=== PATIENT | female | born 1955 | race Caucasian/White ===

== ENCOUNTER 2016-12-20 09:34 | Inpatient (IN) ==
[2016-12-20] MEDS ORDERED: ONDANSETRON 4 MG/2 ML INJECTION IVP PRN (10:00)
--- OUTSIDE RECORDS SUMMARY | 2016-12-20 10:19 | External Medical Summary | Continuity of Care Document ---
:1955 Author Organization [facility] Care Team Providers Name Role Phone B[employer] Unavailable Unavailable Encounters Location Location Encounter Encounter Reason Attending ADM DC Status Source Details Type Number For Provider Date Date Visit O Active [facility] Family History Value Date Source Advance Directives Order Name Results Value Date Source
--- OUTSIDE RECORDS SUMMARY | 2016-12-20 10:20 | External Medical Summary ---
:1955 Author Organization [employer]Works Care Team Providers Name Role Phone Leena Chan Provider Role Unavailable Allergies, Adverse Reactions, Alerts Substance Reaction Event Type Percocet nausea and vomiting Drug Allergy Lortab nausea and vomiting Drug Allergy Bactrim stomach upset Drug Allergy Problems Problem Type Condition ICD-9 Code Onset Dates Condition Status Assessment Pain in joint, lower leg 719.46 Active Problem Polyneuropathy in diabetes 357.2 Active Problem Anemia in chronic kidney disease 285.21 Active Problem Renal dialysis status V45.11 Active Problem Chronic kidney disease, 585.9 Active unspecified Problem Essential hypertension, benign 401.1 Active Problem Blindness of both eyes, 369.00 Active impairment level not further specified Problem Diabetes Mellitus Type 2, not 250.00 Active stated as uncontrolled Medications Medication Code Code Instructions Start End Status Dosage System Date Date Reglan [facility] 98535-00 10 MG Orally Active 1 tablet 30 tid and qhs prn minutes before meals and at bedtime as needed Vitamin D [facility] 95266-41 2000 UNIT Active as directed 57-60 Orally daily BD U/F Short [facility] 81429 31 X 16 Active USE ONE FOUR Pen Needle TIMES A DAY TO INJECT INSULIN SUBCUTANEOUSLY NovoLog Flexpen [facility] 76539-71 100 UNIT/ML Active 6-9 U TID A.C. 39-10 Subcutaneous TID Ambien [facility] 93579-77 5 MG Orally prn Active 1 1/2 tablet at 05-22 bedtime PrednisoLONE [facility] 13227-16 1 % Ophthalmic Active 1 drop into each Acetate 89-05 [place] [address]-96 Orally prn Active 1 tablet as 00-08 needed Dulcolax Stool [facility] 52531-31 Orally prn Active 2 tablets Softener 202 OneTouch Ultra [facility] 22413 none Active TEST BLOOD Test SUGARS UP TO 10 TIMES PER DAY DX 250.40 Amlodipine [facility] 14508-54 10 Active TAKE ONE TABLET Besylate 01-20 BY MOUTH EVERY DAY MiraLax [facility] 95418-87 Orally prn Active as directed 34-02 Lantus SoloStar [facility] 79586-58 100 unit/mL Active INJECT 6-9 UNITS 19-05 daily EVERY AT BEDTIME Simvastatin [facility] 24769-17 20 Active TAKE ONE TABLET 56-10 BY MOUTH EVERY NIGHT AT BEDTIME Glucose [facility] 5073 Orally prn Active not defined Benefiber [facility] 02389-38 Orally prn Active as directed 44-19 Celexa [facility] 04332-47 20 MG Orally Active 1 tablet 20-01 Once a day Procedures Procedure Coding System Code Date OFFICE VISIT, EST-LOW COMPLEXITY (10 MIN.) CPT-4 89239 Apr 20, 2014 Vital Signs Date/Time: Apr 20, 2014 Height 61 inches Weight 156.4 lbs Temperature 98.3 F Blood Pressure Diastolic 62 mm Hg Blood Pressure Systolic 138 mm Hg Cardiac Monitoring Heart Rate 72 Beats per Minute BMI 29.55 Index Respiratory Rate 16 per Minute Results No Known Results Summary Purpose eClinicalWorks Submission
--- OUTSIDE RECORDS SUMMARY | 2016-12-20 10:20 | External Medical Summary ---
:1955 Author Organization [employer] Care Team Providers Name Role Phone Monique Joann Provider Role Unavailable Allergies, Adverse Reactions, Alerts Substance Reaction Event Type Percocet nausea and vomiting Drug Allergy Lortab nausea and vomiting Drug Allergy Codeine Sulfate nausea and vomiting Drug Allergy Problems Problem Type Condition Code Onset Dates Condition Status Assessment Tension headache G44.209 Active Problem Chronic kidney disease, unspecified 585.9 Active Problem Essential hypertension, benign 401.1 Active Assessment Type 2 diabetes mellitus without E11.9 Active complications Assessment Atypical chest pain R07.89 Active Problem Diabetes with renal manifestations, 250.40 Active type II or unspecified type, not stated as uncontrolled Problem Renal dialysis status V45.11 Active Problem Type 2 diabetes mellitus without E11.9 Active complications Problem Blindness of both eyes, impairment 369.00 Active level not further specified Problem Diabetes Mellitus Type 2, not 250.00 Active stated as uncontrolled Problem Polyneuropathy in diabetes 357.2 Active Problem Anemia in chronic kidney disease 285.21 Active Medications Medication Code Code Instructions Start End Status Dosage System Date Date Bactrim DS [facility] [address]-49 800-160 MG 1 tablet Orally once a day on Mon, Wed, and Sat Benefiber [facility] [address]-28 Orally prn as directed Celexa [facility] [address]-95 20 MG Orally 1 tablet Once a day Myfortic [facility] [address]-35 360 MG Orally 2 tabs BID Prilosec [facility] [address]-47 20 MG Orally 1 capsule Once a day Fluticasone [facility] 59945626355 50 Nasally 1 spray in each Propionate Once a day nostril OneTouch Verio [facility] [address]-89 . In Vitro qid Oct as directed and prn [address] [facility] [address]-26 Orally prn 1 tablet as needed Prograf [facility] [address]-14 1 MG Orally 1 caps along BID with 0.5 mg capsule for a total of 1.[address] [facility] [address]-61 250 MG Orally 3 tablets in Twice a day the morning and 2 tablets at bedtime PredniSONE [facility] [address]-01 5 MG Orally 1 tablet with Once a day food or milk Amlodipine [facility] [address]-43 5 MG Orally 1 tablet as Besylate Once a day needed NovoLog Flexpen [facility] [address]-13 100 UNIT/ML inject 9 units Subcutaneous three times a TID day before meals OneTouch Verio [facility] [address]-22 . In Vitro. Dx Oct as directed code E11.29 20, qid [address] [facility] [address]-27 Orally prn as directed Glucose [facility] [address]-04 Orally prn not defined BD U/F Short Pen [facility] 69512348770 31 gauge USE ONE FOUR Needle TIMES A DAY TO INJECT INSULIN SUBCUTANEOUSLY Cyclobenzaprine [facility] [address]-21 5 MG Orally 1 tablet HCl Once a day Vitamin D-[address] [facility] [address]-98 2000 UNIT not defined Strength Orally Lantus SoloStar [facility] 92191112490 100 unit/mL inject 16 units Subcutaneous every at at HS bedtime Promethazine HCl [facility] [address]-92 12.5 MG Orally 1 tablet Three times a day prn Pravastatin [facility] [address]-38 10 MG Orally 1/2 tablet Sodium Once a day Procedures Procedure Coding System Code Date OFFICE VISIT, EST-LOW COMPLEXITY (15 MIN.) CPT-4 55733 October 13, 2015 [facility] visit Established Patient CPT-4 G0467 October 13, 2015 Vital Signs Date/Time: October 13, 2015 Temperature 98.2 F Height 61 in Weight 172.12 lbs Blood Pressure Diastolic 70 mm Hg Blood Pressure Systolic 130 mm Hg Cardiac Monitoring Heart Rate 64 /min BMI 32.52 Index Respiratory Rate 16 /min Results No Known Results Summary Purpose eClinicalWorks Submission
--- OUTSIDE RECORDS SUMMARY | 2016-12-20 10:20 | External Medical Summary ---
:1955 Author Organization [employer]Works Care Team Providers Name Role Phone Joann Amaya Provider Role Unavailable Allergies No Known Allergies Problems Problem Type Condition ICD-9 Code Onset Dates Condition Status Problem Essential hypertension, benign 401.1 Active Problem Renal dialysis status V45.11 Active Problem Polyneuropathy in diabetes 357.2 Active Problem Diabetes with renal 250.40 Active manifestations, type II or unspecified type, not stated as uncontrolled Problem Diabetes Mellitus Type 2, not 250.00 Active stated as uncontrolled Problem Chronic kidney disease, 585.9 Active unspecified Problem Anemia in chronic kidney disease 285.21 Active Problem Blindness of both eyes, 369.00 Active impairment level not further specified Medications Medication Code System Code Instructions Start Date End Date Status Dosage Amoxicillin [facility] 23[address]-628 500 MG Orally Jan 12, Jan 22, 1 capsule 9-05 every 12 hrs 2014 2014 Results No Known Results Summary Purpose [employer] Submission
--- OUTSIDE RECORDS SUMMARY | 2016-12-20 10:20 | External Medical Summary ---
:1955 Author Organization [employer] Care Team Providers Name Role Phone Joann Amaya Provider Role Unavailable Allergies No Known Allergies Problems Problem Type Condition Code Onset Dates Condition Status Problem Chronic kidney disease, unspecified 585.9 Active Problem Essential hypertension, benign 401.1 Active Problem Diabetes with renal manifestations, 250.40 Active type II or unspecified type, not stated as uncontrolled Problem Renal dialysis status V45.11 Active Problem Type 2 diabetes mellitus without E11.9 Active complications Problem Blindness of both eyes, impairment 369.00 Active level not further specified Problem Diabetes Mellitus Type 2, not stated 250.00 Active as uncontrolled Problem Polyneuropathy in diabetes 357.2 Active Problem Anemia in chronic kidney disease 285.21 Active Medications Medication Code Code Instructions Start End Status Dosage System Date Date BD U/F Short [facility] 80311261092 31 gauge dx USE ONE FOUR Pen Needle E11.9 four TIMES A DAY TO times a day INJECT INSULIN SUBCUTANEOUSLY Results No Known Results Summary Purpose [employer]o Submission
--- OUTSIDE RECORDS SUMMARY | 2016-12-20 10:20 | External Medical Summary | Encounter Summary ---
:1955 Author Organization [facility] Address [address] [place] [address] Phone Care Team Providers Name Role Phone Unavailable Primary Care Provider Unavailable Reason for Visit Reason Comments Medication Refill Encounter Details Date Type Department Care Team Description 09/20/2016 Refill Center for [facility] Transplantation-Kidney/Pancreas Nep [address] [facility] [place] [address] Social History Tobacco Use Types Packs/Day Years Used Date Former Smoker Cigarettes 40 Smokeless Tobacco: Never Used Alcohol Use Drinks/Week oz/Week Comments No Sex Assigned at Date Recorded Not on file as of this encounter Functional Status Functional Status Response Date of Assessment Does the patient have a hearing impairment: Yes 07/11/2016 Does the patient have a visual impairment: Yes 07/11/2016 Does the patient have impaired ambulation: Yes 07/11/2016 Does the patient have an activity of daily living (ADL) Yes 07/11/2016 impairment: Does the patient have an instrumental activity of daily Yes 07/11/2016 living (IADL) impairment: Cognitive Status Response Date of Assessment Does the patient have a cognitive impairment: No 07/11/2016 as of this encounter Plan of Treatment Not on fileas of this encounter Visit Diagnoses Not on filein this encounter
--- OUTSIDE RECORDS SUMMARY | 2016-12-20 10:20 | External Medical Summary ---
:1955 Author Organization [employer] Care Team Providers Name Role Phone MoniqueMelvinaJoann Provider Role Unavailable Allergies No Known Allergies [...] Active impairment level not further specified Medications No Known Medications Results No Known Results Summary Purpose eClinicalWorks Submission
--- OUTSIDE RECORDS SUMMARY | 2016-12-20 10:20 | External Medical Summary ---
:1955 Author Organization [employer]ClinicalWorks Care Team Providers Name Role Phone Joann Amaya Provider Role Unavailable Allergies No Known Allergies Problems Problem Type Condition Code Onset Dates Condition Status Problem Essential hypertension, benign 401.1 Active Assessment Urinary tract infection, site not N39.0 Active specified Problem Renal dialysis status V45.11 Active Problem Polyneuropathy in diabetes 357.2 Active Problem Diabetes with renal manifestations, 250.40 Active type II or unspecified type, not stated as uncontrolled Problem Diabetes Mellitus Type 2, not stated 250.00 Active as uncontrolled Problem Chronic kidney disease, unspecified 585.9 Active Problem Anemia in chronic kidney disease 285.21 Active Problem Blindness of both eyes, impairment 369.00 Active level not further specified Medications Medication Code Code Instructions Start End Status Dosage System Date Date Bactrim DS [facility] [address]-49 800-160 MG 1 tablet Orally once a day on Mon, Wed, and Sat MiraLax [facility] [address]-91 Orally prn as directed PredniSONE [facility] [address]-77 5 MG Orally 1 tablet with Once a day food or milk Prograf [facility] [address]-19 1 MG Orally 3 caps in am and BID 3 caps in evening Magnesium [facility] [address]-68 250 MG Orally 3 tablets in the Twice a day morning and 2 tablets at bedtime Vitamin D-[address] [facility] [address]-27 2000 UNIT not defined Super Strength Orally Tylenol [facility] [address]-75 Orally prn 1 tablet as needed Midodrine HCl [facility] [address]-79 5 MG Orally 1 tablet Once a day Celexa [facility] [address]-91 20 MG Orally 1 tablet Once a day OneTouch Verio [facility] [address]-96 . In Vitro. Dx Feb 08, as directed code E11.29 2014 qid [address]antus [facility] [address]-23 100 UNIT/ML Mar 15, 15 UNITS AT SoloStar Subcutaneous 2014 BEDTIME Once a day Pravastatin [facility] [address]-64 10 MG Orally 1/2 tablet Sodium Once a day NovoLog [facility] [address]-40 100 UNIT/ML inject 11/27/09 Flexpen Subcutaneous units three TID times a day before meals Benefiber [facility] [address]-13 Orally prn as directed Glucose [facility] [address]-05 Orally prn not defined Promethazine [facility] [address]-14 12.5 MG Orally 1 tablet HCl Three times a day prn BD U/F Short [facility] 05955253781 31 gauge USE ONE FOUR Pen Needle TIMES A DAY TO INJECT INSULIN SUBCUTANEOUSLY Myfortic [facility] [address]-61 360 MG Orally 2 tabs BID Prilosec [facility] [address]-81 20 MG Orally 1 capsule Once a day OneTouch Verio [facility] [address]-19 . In Vitro qid Feb 04, as directed and prn 2014 Procedures Procedure Coding System Code Date URINE CULTURE CPT-4 35631 Apr 06, 2015 Results No Known Results Summary Purpose eClinicalWorks Submission
--- OUTSIDE RECORDS SUMMARY | 2016-12-20 10:20 | External Medical Summary | Clinical Summary ---
:1955 Author Organization [facility] Address [address] [place] [address] Phone Care Team Providers Name Role Phone Unavailable Primary Care Provider Unavailable Source Comments Some departments are not documenting in the electronic medical record. If you do not see the information that you expected, contact Release of Information in the Health Information Management department at [phone] for further assistance in locating additional records.[facility] Allergies Active Allergy Reactions Severity Noted Date Comments Hydrocodone-Acetaminophen NAUSEA AND VOMITING 01/05/2013 Oxycodone-Acetaminophen NAUSEA AND VOMITING 01/05/2013 Acetaminophen-Codeine UNKNOWN 01/15/2014 Current Medications Prescription Sig. Disp. Refills Start Date End Date Status citalopram (CELEXA) 20 Take 20 mg by mouth Active mg tablet daily. prednisoLONE phosphate Apply 1 Drop to both Active (INFLAMASE FORTE) 1 % eyes twice daily. ophthalmic solution predniSONE (DELTASONE) Take one tab po q 30 Tab 11 02/25/2015 Active 5 mg daily tabletIndications: Kidney replaced by transplant ERGOCALCIFEROL Take 2,000 Units by Active (VITAMIN D2) (VITAMIN mouth daily. D PO) pravastatin Take 20 mg by mouth Active (PRAVACHOL) 20 mg daily. tablet zolpidem (AMBIEN) 10 Take 10 mg by mouth Active mg tablet at bedtime as needed for Sleep. INSULIN ASPART Inject under the Active (NOVOLOG SC) skin. 9 units Breakfast, 14 units lunch, 15 units dinner INSULIN Inject under the Active GLARGINE,HUM.REC.ANLOG skin. 17 units at (LANTUS SC) bedtime omeprazole DR(+) Take 1 Cap by mouth 30 Cap 0 12/07/2015 Active (PRILOSEC) 20 mg daily[address] capsule mycophenolate DR Take 1 Tab by mouth 60 Tab 11 03/23/2016 Active (MYFORTIC) 360 mg TbEC twice daily. ICD 10 tablet Code Z94.0. Collaborative MD: Carol Ann Burnham MD. metoclopramide Take 5 mg by mouth Active (REGLAN) 10 mg tablet every 6 hours as needed for Nausea, Vomiting or Other.... Magnesium Oxide 250 mg Take 250 mg by mouth Active tab three times daily. promethazine Take 25 mg by mouth Active (PHENERGAN) 25 mg every 6 hours as tablet needed for Nausea or Vomiting. tacrolimus (PROGRAF) 1 Take 2 Caps by mouth 120 Cap 11 09/20/2016 Active mg capsule twice daily. tacrolimus (PROGRAF) Take 1 Cap by mouth 60 Cap 11 09/20/2016 Active 0.5 mg capsule twice daily. Take with 1mg caps to equal 2.5mg bid Active Problems Problem Noted Date Kidney replaced by transplant 08/09/2014 Overview: 08/08/14: donor right kidney transplant on the right side, double-J ureter stent placed. 08/12/14: US abdomen Comp Impression: 1. Normal sized, homogeneous liver with patent hepatic vessels. 2. Mild extrahepatic bile duct dilatation without intrahepatic ductal dilatation. 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 3. Mild bilateral [place] renal atrophy. 4. Normal size right lower quadrant renal transplant without evidence of hydronephrosis. Renal failure 08/08/2014 Immunosuppression (HCC) 08/08/2014 Overview: 08/08/14: Induction with Thymo 1.5 mg/kg (100 mg), Steroids, Cellcept. 08/09/14: Thymo 75 mg (100+ 75) Continue Steroid taper, Start Prograf 2 mg BID. 08/10/14: FK 7.0. No change. Thymo 75mg. 08/11/14: FK 5.7. Increase Prograf to 06/22. Thymo 75 mg (100+75+75+31=820 mg Total: 4.7 mg/kg) 08/12/14: FK 6.2 on 06/22 Prograf, no change 08/13/14: FK 5.7 on 06/22, Increase to 4/4. Discharged on this dose and f/u with labs next week in clinic. Abnormal cardiovascular function study 01/05/2013 Overview: 01/21/14 Cardiac Catheterization 1. Normal left ventricular systolic function. 2. Normal-appearing coronary arteries. 3. Anomalous right coronary artery. Hypertension 01/05/2013 Hyperlipidemia 01/05/2013 Blindness of both eyes 01/05/2013 Diabetes mellitus, type II, insulin dependent (HCC) 01/05/2013 Anemia 01/05/2013 ESRD on hemodialysis (HCC) 01/05/2013 History of tobacco abuse 01/05/2013 Encounters Date Type Specialty Care Team Description 12/19/2016 Specialty Ny Dawkins, Pharmacy/Medication [facility] Management 09/20/2016 Refill Transplant Surgery Teresita Mcnally LPN from Last 3 Months Family History Medical History Relation Name Comments Cancer Mother Relation Name Status Comments Brother Alive Brother Alive Father Other unknown Mother cancer of liver Sister Alive Social History Tobacco Use Types Packs/Day Years Used Date Former Smoker Cigarettes 40 Smokeless Tobacco: Never Used Alcohol Use Drinks/Week oz/Week Comments No Sex Assigned at Date Recorded Not on file Last Filed Vital Signs Vital Sign Reading Time Taken Blood Pressure 132/56 07/11/2016 1:33 PM CDT Pulse 64 07/11/2016 1:33 PM CDT Temperature 36.2 C (97.1 F) 07/11/2016 10:31 AM CDT Respiratory Rate - - Oxygen Saturation 97% 07/11/2016 10:31 AM CDT Inhaled Oxygen Concentration - - Weight 82.9 kg (182 lb 12.8 oz) 07/11/2016 1:33 PM CDT Height 149.9 cm (4' 11") 07/11/2016 1:33 PM CDT Body Mass Index 36.92 07/11/2016 1:33 PM CDT Plan of Treatment Health Maintenance Due Date Last Done Comments PHYSICAL (COMPREHENSIVE) EXAM 1964 PERTUSSIS VACCINE 1968 TETANUS VACCINE 1974 FOOT EXAM 08/25/1975 MICROALBUMIN 08/25/1975 PNEUMONIA VACCINE (DM) 08/25/1975 CERVICAL CANCER SCREENING 08/25/1987 BREAST CANCER SCREENING 1997 COLORECTAL CANCER SCREENING 08/25/2007 HBA1C 04/15/2015 10/14/2014, 08/08/2014, 02/23/2014 INFLUENZA VACCINE 12/21/2016 HEPATITIS C SCREENING Completed 08/12/2014, 02/23/2014
--- OUTSIDE RECORDS SUMMARY | 2016-12-20 10:20 | External Medical Summary ---
:1955 Author Organization [employer]Works Care Team Providers Name Role Phone Monique, Joann Provider Role Unavailable Allergies No Known Allergies [...] 369.00 Active level not further specified Medications No Known Medications Results No Known Results Summary Purpose eClinicalWorks Submission
--- OUTSIDE RECORDS SUMMARY | 2016-12-20 10:20 | External Medical Summary ---
:1955 Author Organization eClinicalWorks Care Team Providers Name Role Phone Joann Amaya Provider Role Unavailable Allergies, Adverse Reactions, Alerts Substance Reaction Event Type Percocet nausea and vomiting Drug Allergy Lortab nausea and vomiting Drug Allergy Codeine Sulfate nausea and vomiting Drug Allergy Problems Problem Type Condition Code Onset Dates Condition Status Assessment Dysuria R30.0 Active Problem Chronic kidney disease, unspecified 585.9 Active Problem Essential hypertension, benign 401.1 Active Assessment Vaginal bleeding N93.9 Active Problem Diabetes with renal manifestations, 250.40 [...] Start End Status Dosage System Date Date MiraLax [facility] [address]-71 Orally prn as directed Prograf [facility] [address]-75 1 MG Orally 1 caps along BID with 0.5 mg capsule for a total of 1.5 mg Celexa [facility] [address]-74 20 MG Orally 1 tablet Once a day PredniSONE [facility] [address]-28 5 MG Orally 1 tablet with Once a day food or milk Promethazine HCl [facility] [address]-64 12.5 MG Orally 1 tablet Three times a day prn OneTouch Verio [facility] [address]-39 . In Vitro. Dx Oct as directed code E11.29 q 20, day. bid as 2014 needed Tylenol [facility] [address]-92 Orally prn 1 tablet as needed Benefiber [facility] [address]-97 Orally prn as directed Doxycycline [facility] [address]-71 100 MG Orally Sept Dec 1 capsule Hyclate twice a day 2015 Vitamin D-3 Super [facility] [address]-43 2000 UNIT not defined Strength Orally Cyclobenzaprine [facility] [address]-24 5 MG Orally 1 tablet HCl Once a day Amlodipine [facility] [address]-42 5 MG Orally 1 tablet as Besylate Once a day needed BD U/F Short Pen [facility] 12363022725 31 gauge USE ONE FOUR Needle TIMES A DAY TO INJECT INSULIN SUBCUTANEOUSLY Magnesium [facility] [address]-79 250 MG Orally 3 tablets in Twice a day the morning and 2 tablets at bedtime Glucose [facility] [address]-34 Orally prn not defined Myfortic [facility] [address]-70 360 MG Orally 2 tabs BID NovoLog Flexpen [facility] [address]-04 100 UNIT/ML inject 12/02/12 Subcutaneous TID Lantus SoloStar [facility] [id number] 100 unit/mL inject 16-22 Subcutaneous units every at at HS bedtime Prilosec [facility] [address]-14 20 MG Orally 1 capsule Once a day Bactrim DS [facility] [address]-00 800-160 MG 1 tablet Orally once a day on Mon, Wed, and Sat Pravastatin [facility] [address]-21 10 MG Orally 1/2 tablet Sodium Once a day OneTouch Verio [facility] [address]-11 . In Vitro qid Oct as directed and prn 2014 Procedures Procedure Coding System Code Date [facility] visit Established Patient CPT-4 G0467 Jan 09, 2016 OFFICE VISIT, EST-LOW COMPLEXITY (15 MIN.) CPT-4 51628 Jan 09, 2016 URINALYSIS, IN HOUSE CPT-4 64050 Jan 09, 2016 Vital Signs Date/Time: Jan 09, 2016 Temperature 98.5 F Height 61 in Weight 178.12 lbs Blood Pressure Diastolic 60 mm Hg Blood Pressure Systolic 130 mm Hg Cardiac Monitoring Heart Rate 74 /min BMI 33.65 Index Oximetry 98 % Respiratory Rate 16 /min Results Name Result Date Reference Range Unit Abnormality Flag In House Urinalysis, automated ----PRO neg 20160109 ----pH 6.0 20160109 ----BLO Large 20160109 ----SG <=1.005 20160109 ----KET neg 20160109 ----SILVIA trace 20160109 ----Color dark yellow 20160109 ----URO 0.2 20160109 ----Clarity cloudy 20160109 ----GLU neg 20160109 ----NIT neg 20160109 ----RAEGAN neg 20160109 Summary Purpose eClinicalWorks Submission
--- OUTSIDE RECORDS SUMMARY | 2016-12-20 10:20 | External Medical Summary ---
[...] Instructions Start Date End Date Status [facility] [address]-044 5 MG Orally prn 1 1/2 tablet 1-31 at bedtime Results No Known Results Summary Purpose eClinicalWorks Submission
--- OUTSIDE RECORDS SUMMARY | 2016-12-20 10:20 | External Medical Summary ---
:1955 Author Organization [employer] Care Team Providers Name Role Phone Monique, [...] in chronic kidney disease 285.21 Active Medications No Known Medications Results No Known Results Summary Purpose [employer] Submission
--- OUTSIDE RECORDS SUMMARY | 2016-12-20 10:20 | External Medical Summary ---
:1955 Author Organization [employer] Care Team Providers Name Role Phone Melvina Amayafany Provider Role Unavailable Allergies, Adverse Reactions, Alerts Substance Reaction Event Type Percocet nausea and vomiting Drug Allergy Lortab nausea and vomiting Drug Allergy Bactrim stomach upset Drug Allergy Problems Problem Type Condition ICD-9 Code Onset Dates Condition Status Assessment Diabetes Mellitus Type 2, not 250.00 Active stated as uncontrolled Assessment Essential hypertension, benign 401.1 Active Assessment Anemia in chronic kidney disease 285.21 Active Problem Polyneuropathy in diabetes 357.2 Active Problem Anemia in chronic kidney disease 285.21 Active Problem Renal dialysis status V45.11 Active Problem Chronic kidney disease, 585.9 Active unspecified Problem Essential hypertension, benign 401.1 Active Problem Blindness of both eyes, 369.00 Active impairment level not further specified Problem Diabetes Mellitus Type 2, not 250.00 Active stated as uncontrolled Assessment Insomnia, unspecified 780.52 Active Assessment Other screening breast V76.19 Active examination Assessment Renal dialysis status V45.11 Active Medications Medication Code Code Instructions Start End Status Dosage System Date Date Vitamin D [facility] 76044-41 2000 UNIT Active as directed 57-60 Orally daily BD U/F Short [facility] 62090 31G X 8 MM Active USE FOUR TIMES A Pen Needle DAY TO INJECT INSULIN SUBCUTANEOUSLY MiraLax [facility] 96724-74 Orally prn Active as directed 34-02 Lantus SoloStar [facility] 69295-41 100 unit/mL Active INJECT 6-9 UNITS 19-05 daily EVERY AT BEDTIME PrednisoLONE [facility] 56016-90 1 % Ophthalmic Active 1 drop into each Acetate 89-05 daily eye Benefiber [facility] 88412-80 Orally prn Active as directed 44-19 Ambien [facility] 75637-62 5 MG Orally prn Active 1 1/2 tablet at - bedtime Dulcolax Stool [facility] 95784-64 Orally prn Active 2 tablets Soft[place] [address] [place] [address]-54 Orally prn Active 1 tablet as 00-08 needed Simvastatin [facility] 35057-18 20 Active TAKE ONE TABLET 56-10 BY MOUTH EVERY NIGHT AT BEDTIME Glucose [place] 5073 Orally prn Active not defined NovoLog Flexpen [facility] 50254-72 100 UNIT/ML Active 6-9 U TID A.C. 39-10 Subcutaneous TID Celexa [facility] 42986-79 20 MG Orally Active 1 tablet 20-01 Once a day Reglan [facility] 12892-48 10 MG Orally Active 1 tablet 30 tid and qhs prn minutes before meals and at bedtime as needed OneTouch Ultra [facility] 08266 none Active TEST BLOOD Test SUGARS UP TO 10 TIMES PER DAY DX 250.40 Amlodipine [facility] 31017-71 10 Active TAKE ONE TABLET Besylate -20 BY MOUTH EVERY DAY Procedures Procedure Coding System Code Date OFFICE VISIT, EST-LOW COMPLEXITY (15 MIN.) CPT-4 90279 Jan 14, 2014 Vital Signs Date/Time: Jan 14, 2014 Height 61 inches Weight 145.8 lbs Temperature 98.3 F Blood Pressure Diastolic 50 mm Hg Blood Pressure Systolic 132 mm Hg Cardiac Monitoring Heart Rate 74 Beats per Minute BMI 27.55 Index Respiratory Rate 16 per Minute Results No Known Results Summary Purpose eClinicalWorks Submission
--- OUTSIDE RECORDS SUMMARY | 2016-12-20 10:20 | External Medical Summary | Encounter Summary ---
:1955 Author Organization [facility] Address [address] [place] [address] Phone Care Team Providers Name Role Phone Unavailable Primary Care Provider Unavailable Encounter Details Date Type Department Care Team Description 12/19/2016 [facility] Ny Dawkins, Pharmacy/Medication [address] [address] Social History Tobacco Use Types Packs/Day Years [...] impairment: No 07/11/2016 as of this encounter Progress Notes Ny Dawkins, PH[facility] - 12/19/2016 2:35 PM CDTFormatting of this note may be different from the original. Periodic Immunosuppressant Medication Reassessment Prograf (tacrolimus) calcineurin inhibitor Myfortic (mycophenolate sodium) antimetabolite The reassessment was completed by speaking to the patient's sister Kateryna, who is her caregiver. Prograf and Myfortic have been appropriately prescribed for immunosuppression following organ transplantation for Liudmila Shaikh. The following doses and frequencies have been prescribed: ? Tacrolimus 1.5 mg by mouth twice daily; dosing to be modified for a trough goal of 6-8 mcg/mL ? Mycophenolate sodium 360 mg twice daily These medications will be continued indefinitely or for a duration determined to be appropriate by the transplant prescriber. The immunosuppressive regimen above has been prescribed to prevent rejection after kidney transplantation. Side effects of medications were questioned and the patient reported they are not experiencing any significant adverse effects to the medications. Patients adherence to therapy was reviewed and her sister reported that she has not missed any doses of medication in the last 30 days. Liudmila Shaikh was educated on the importance of adherence. Liudmila Shaikh is adherent with medication refills A review of the patients allergies and medication reconciliation have been completed. Allergies: Allergies Allergen Reactions Lortab [Hydrocodone-Acetaminophen] NAUSEA AND VOMITING Percocet [Oxycodone-Acetaminophen] NAUSEA AND VOMITING Tylenol-Codeine [Acetaminophen-Codeine] UNKNOWN Current medications: Prior to Admission medications Medication Sig Start Date End Date Taking? Authorizing Provider citalopram (CELEXA) 20 mg tablet Take 20 mg by mouth daily. Historical Provider ERGOCALCIFEROL (VITAMIN D2) (VITAMIN D PO) Take 2,000 Units by mouth daily. HISTORICAL PROVIDER INSULIN ASPART (NOVOLOG SC) Inject under the skin. 9 units Breakfast, 14 units lunch, 15 units dinner HISTORICAL PROVIDER INSULIN GLARGINE,HUM.REC.ANLOG (LANTUS SC) Inject under the skin. 17 units at bedtime HISTORICALPROVIDER Magnesium Oxide 250 mg tab Take 250 mg by mouth three times daily. Historical Provider metoclopramide (REGLAN) 10 mg tablet Take 5 mg by mouth every 6 hours as needed for Nausea, Vomitingor Other.... HISTORICAL PROVIDER mycophenolate DR (MYFORTIC) 360 mg TbEC tablet Take 1 Tab by mouth twice daily. ICD 10 Code Z94.0. Collaborative MD: Carol Ann Burnham MD. 03/23/16 Nara Sharp APRN omeprazole DR(+) (PRILOSEC) 20 mg capsule Take 1 Cap by mouth daily. 12/07/15 Nara Sharp APRN pravastatin (PRAVACHOL) 20 mg tablet Take 20 mg by mouth daily. HISTORICAL PROVIDER prednisoLONE phosphate (INFLAMASE FORTE) 1 % ophthalmic solution Apply 1 Drop to both eyes twice daily. Historical Provider predniSONE (DELTASONE) 5 mg tablet Take one tab po q daily 02/25/15 Nara Sharp APRN promethazine (PHENERGAN) 25 mg tablet Take 25 mg by mouth every 6 hours as needed for Nausea or Vomiting. Historical Provider tacrolimus (PROGRAF) 0.5 mg capsule Take 1 Cap by mouth twice daily. Take with 1mg caps to equal 2.5mg bid 09/20/16 Nara Sharp APRN tacrolimus (PROGRAF) 1 mg capsule Take 2 Caps by mouth twice daily. 09/20/16 Nara Sharp APRN zolpidem (AMBIEN) 10 mg tablet Take 10 mg by mouth at bedtime as needed for Sleep. HISTORICAL PROVIDER Drug-Drug Interactions: Drug-drug and drug-food interactions between the patients specialty medication and their medication list were assessed and reviewed with the patient. No new significant drug-drug or drug-food interactions were identified. The patient was counseled to avoid taking non-steroidal anti-inflammatory drugs or herbal supplements and to contact their transplant physician or pharmacist before stopping or starting any medications. Drug-Food Interactions: The patient was counseled to avoid consuming grapefruit and grapefruit juice or pomegranate and pomegranate juice. While their medications can be taken without regard to food, the patient was stronglyencouraged to take their medications with food for better tolerability. status: Female, not of child-bearing potential: education not applicable REMS programs: No REMS are required for any of the prescribed medications for this patient. Patient assessments: Subjective clinical assessment: on a scale of 1 to 10, the patient rates they are feeling 10 out of10 while on treatment. Subjective Quality of Life Measurement: In the past 30 days, Liudmila Shaikh was able to complete all normal daily activities. Kateryna reported that her sister is feeling great, is compliant with her medications, and is not aware of any medication-related side effects. Kateryna was given the opportunity to ask questions on behalf of Liudmila and did not have any questions at this time. Followup Plan: Re-assessment has been completed. The patient will be assessed again in 1 year. Haile Cervantes this encounter Plan of Treatment Not on fileas of this encounter Visit Diagnoses Not on filein this encounter
--- OUTSIDE RECORDS SUMMARY | 2016-12-20 10:20 | External Medical Summary ---
:1955 Author Organization [employer] Care Team Providers Name Role Phone Joann [...] Medications Medication Code Code Instructions Start End Date Status Dosage System Date Cathleen Mcdermott [facility] 13965-96 . In Vitro qid Feb 04, as directed 73-02 and prn 2014 Results No Known Results Summary Purpose [employer] Submission
--- OUTSIDE RECORDS SUMMARY | 2016-12-20 10:20 | External Medical Summary ---
:1955 Author Organization [employer] Care Team Providers Name Role Phone Monique, Joann Provider Role Unavailable Allergies, Adverse Reactions, Alerts Substance Reaction Event Type Percocet nausea and vomiting Drug Allergy Lortab nausea and vomiting Drug Allergy Codeine Sulfate nausea and vomiting Drug Allergy Problems Problem Type Condition Code Onset Dates Condition Status Assessment Urinary tract infection, site not N39.0 Active specified Problem Essential hypertension, benign 401.1 Active Assessment Dysuria R30.0 Active Problem Renal dialysis status V45.11 Active [...] Status Dosage System Date Date Bactrim DS [facility] [address]-21 800-160 MG 1 tablet Orally once a day on Mon, Wed, and Sat Glucose [facility] [address]-56 Orally prn not defined MiraLax [facility] [address]-77 Orally prn as directed PredniSONE [facility] [address]-23 5 MG Orally 1 tablet with Once a day food or milk OneTouch Verio [facility] [address]-48 . In Vitro. Dx Feb 08, as directed code E11.29 2014 qid Promethazine [facility] [address]-59 12.5 MG Orally 1 tablet HCl Three times a day prn Celexa [facility] [address]-19 20 MG Orally 1 tablet Once a day BD U/F Short [facility] 07594257667 31 gauge USE ONE FOUR Pen Needle TIMES A DAY TO INJECT INSULIN SUBCUTANEOUSLY Prilosec [facility] [address]-49 20 MG Orally 1 capsule Once a day Midodrine HCl [facility] [address]-29 5 MG Orally 1 tablet Once a day Lantus [facility] [address]-06 100 UNIT/ML Apr 05 UNITS AT SoloStar Subcutaneous 2014 BEDTIME Once a day Pravastatin [facility] [address]-06 10 MG Orally 1/2 tablet Sodium Once a day Vitamin D-3 [facility] [address]-16 2000 UNIT not defined Super Strength Orally Benefiber [facility] [address]-71 Orally prn as directed Tylenol [facility] [address]-79 Orally prn 1 tablet as needed NovoLog [facility] [address]-58 100 UNIT/ML inject 11/27/09 Flexpen Subcutaneous units three TID times a day before meals Magnesium [facility] [address]-62 250 MG Orally 3 tablets in the Twice a day morning and 2 tablets at bedtime Myfortic [facility] [address]-90 360 MG Orally 2 tabs BID Prograf [facility] [address]-82 1 MG Orally 3 caps in am and BID 3 caps in evening OneTouch Verio [facility] [address]-00 . In Vitro qid Feb 04, as directed and prn 2014 Procedures Procedure Coding System Code Date [facility] visit Established Patient CPT-4 G0467 Apr 05, 2015 OFFICE VISIT, EST-LOW COMPLEXITY (15 MIN.) CPT-4 62690 Apr 05, 2015 URINALYSIS, IN HOUSE CPT-4 43839 Apr 05, 2015 Vital Signs Date/Time: Apr 05, 2015 Height 61 in Weight 160 lbs Temperature 98.4 F Blood Pressure Diastolic 78 mm Hg Blood Pressure Systolic 150 mm Hg Cardiac Monitoring Heart Rate 61 /min BMI 30.23 Index Respiratory Rate 16 /min Results Name Result Date Reference Range Unit Abnormality Flag In House Urinalysis, automated ----PRO neg [id number] ----pH 6.0 20150405 ----BLO neg [id number] ----SG 1.015 20150405 ----KET neg [id number] ----SILVIA trace [id number] ----Color dark yellow 20150405 ----URO 0.2 [id number] ----Clarity cloudy 20150405 ----GLU neg [id number] ----NIT neg [id number] ----RAEGAN neg [id number] Summary Purpose eClinicalWorks Submission
--- OUTSIDE RECORDS SUMMARY | 2016-12-20 10:20 | External Medical Summary ---
[...] Start End Status Dosage System Date Date Cathleen Mcdermott [facility] [address]-72 . In Vitro. Dx Feb 08, as directed code E11.29 q 2014. bid as needed Lantus [facility] [id number] 100 unit/mL inject SoloStar Subcutaneous at 16-22 units HS every at bedtime Results No Known Results Summary Purpose eClinicalWorks Submission
--- OUTSIDE RECORDS SUMMARY | 2016-12-20 10:21 | External Medical Summary ---
:1955 Author Organization [employer]Works Care Team Providers Name Role Phone Joann Amaya Provider Role Unavailable Allergies, Adverse Reactions, Alerts Substance Reaction Event Type Percocet nausea and vomiting Drug Allergy Lortab nausea and vomiting Drug Allergy Codeine Sulfate nausea and vomiting Drug Allergy Problems Problem Type Condition ICD-9 Code Onset Dates Condition Status Assessment Diabetes Mellitus Type 2, not 250.00 Active stated as uncontrolled Problem Essential hypertension, benign 401.1 Active Assessment Essential hypertension, benign 401.1 Active Assessment Aftercare following organ V58.44 Active transplant Assessment Chronic kidney disease, 585.9 Active unspecified Problem Renal dialysis status V45.11 Active Problem [...] End Status Dosage System Date Date MiraLax N[place] 48962-2 Orally prn as directed 234-02 Celexa N[place] 50341-8 20 MG Orally 1 tablet 020-01 [place] [address]-1 400 (241.3 Mg) not defined 9410 MG Orally BID PredniSONE NDC 89198-3 5 MG Orally 1 tablet with 728-25 Once a day food or milk Tylenol NDC 99873-6 Orally prn 1 tablet as 496-60 needed Promethazine NDC 28813-3 12.5 MG Orally 1 tablet HCl 193-12 Three times a day prn BD U/F Short NDC 0 31 X 5/16 USE ONE FOUR Pen Needle TIMES A DAY TO INJECT INSULIN SUBCUTANEOUSLY Pravastatin NDC 23895-9 20 MG Orally 1 tablet Sodium 201-10 Once a day Valcyte NDC 08861-8 450 MG Orally 1 tab 038-22 daily Bactrim DS NDC 20258-3 800-160 MG 1 tablet 360-01 Orally once a day on Mon, Wed, and Sat Prilosec NDC 33863-5 20 MG Orally 1 capsule 742-31 Once a day NovoLog Flexpen NDC 86025-3 100 UNIT/ML inject 8 units 339-10 Subcutaneous three times a day before meals Lantus SoloStar N[facility] 03966-2 100 UNIT/ML inject 12 units 219-05 every at bedtime Myfortic NDC 40858-8 360 MG Orally 2 tabs 386-66 BID Vitamin D-3 NDC 48924-4 2000 UNIT not defined Super Strength 411-20 Orally Benefiber NDC 47409-4 Orally prn as directed 044-19 Glucose NDC 90791-9 Orally prn not defined 896-15 Prograf NDC 36631-7 1 MG Orally BID 3 caps in am and 617-11 3 caps in evening Procedures Procedure Coding System Code Date OFFICE VISIT, EST-LOW COMPLEXITY (15 MIN.) CPT-4 26755 October 19, 2014 [facility] visit Established Patient CPT-4 G0467 October 19, 2014 Vital Signs Date/Time: October 19, 2014 Height 61 in Weight 150.0 lbs Temperature 98.1 F Blood Pressure Diastolic 40 mm Hg Blood Pressure Systolic 108 mm Hg Cardiac Monitoring Heart Rate 72 /min BMI 28.34 Index Respiratory Rate 14 /min Results No Known Results Summary Purpose [employer]ClinicalWorks Submission
--- OUTSIDE RECORDS SUMMARY | 2016-12-20 10:21 | External Medical Summary ---
[...] Date Status Dosage System Date Cathleen Mcdermott [facility] 25207-40 . In Vitro. Dx Feb 08, as directed 73-02 code E11.29 qid 2014 Results No Known Results Summary Purpose [employer] Submission
--- OUTSIDE RECORDS SUMMARY | 2016-12-20 10:21 | External Medical Summary ---
:1955 Author Organization [employer] Care Team Providers Name Role Phone Joann Amaya Provider Role Unavailable Allergies, Adverse Reactions, Alerts Substance Reaction Event Type Percocet nausea and vomiting Drug Allergy Lortab nausea and vomiting Drug Allergy Codeine Sulfate nausea and vomiting Drug Allergy Problems Problem Type Condition ICD-9 Code Onset Dates Condition Status Assessment Anemia in chronic kidney disease 285.21 Active Problem Essential hypertension, benign 401.1 Active Assessment Essential hypertension, benign 401.1 Active Assessment Chronic kidney disease, 585.9 Active unspecified Assessment Diabetes Mellitus Type 2, not 250.00 Active stated as uncontrolled Problem Renal dialysis status [...] Status [place] [address]-6 800-160 MG 1 tablet 360-01 Orally once a day on Mon, Wed, and Sat Benefiber NDC 11099-2 Orally prn as directed 044-19 Prograf NDC 88401-3 1 MG Orally BID 3 caps in am and 617-11 3 caps [place] [address]-4 2000 UNIT not defined Super Strength 411-20 [place] [address]-7 100 UNIT/ML inject 9 units 339-10 Subcutaneous three times a day TID before meals Tylenol NDC 04329-4 Orally prn 1 tablet as 496-60 [place] [address]-5 20 MG Orally 1 tablet Sodium 201-10 Once a day Myfortic NDC 57268-5 360 MG Orally 2 tabs 386-66 [place] [address]-9 300 u/mL Dec 06Dec 12 units 869 subcutaneous 2015 16, Once a day at 2015 bed[place] [address]-2 400 (241.3 Mg) not defined 9410 MG Orally BID MiraLax NDC 69081-9 Orally prn as directed 234-02 Glucose NDC 32167-4 Orally prn not defined 896-15 PredniSONE NDC 50104-9 5 MG Orally 1 tablet with 728-25 Once a day food or milk Promethazine NDC 89124-7 12.5 MG Orally 1 tablet HCl 193-12 Three times a day prn Celexa NDC 90657-1 20 MG Orally 1 tablet 020-01 Once a day BD U/F Short NDC 0 31 X 5/16 USE ONE FOUR Pen Needle TIMES A DAY TO INJECT INSULIN SUBCUTANEOUSLY Prilosec NDC 34597-0 20 MG Orally 1 capsule 782-31 Once a day Procedures Procedure Coding System Code Date OFFICE VISIT, EST-LOW COMPLEXITY (15 MIN.) CPT-4 57561 Dec 06, 2014 [facility] visit Established Patient CPT-4 G0467 Dec 06, 2014 Vital Signs Date/Time: Dec 06, 2014 Height 61 in Weight 150.8 lbs Temperature 98.0 F Blood Pressure Diastolic 52 mm Hg Blood Pressure Systolic 104 mm Hg Cardiac Monitoring Heart Rate 78 /min BMI 28.49 Index Respiratory Rate 16 /min Results No Known Results Summary Purpose [employer] Submission
--- OUTSIDE RECORDS SUMMARY | 2016-12-20 10:21 | External Medical Summary ---
:1955 Author Organization [employer] Care Team Providers Name Role Phone Monique Joann Provider Role Unavailable Allergies No Known Allergies Problems Problem Type Condition ICD-9 Code Onset Dates Condition Status Problem Polyneuropathy in diabetes 357.2 Active Problem Anemia in chronic kidney disease 285.21 Active Problem Renal dialysis status V45.11 Active Problem Chronic kidney disease, 585.9 Active unspecified Problem Essential hypertension, benign 401.1 Active Problem Blindness of both eyes, 369.00 Active impairment level not further specified Problem Diabetes Mellitus Type 2, not 250.00 Active stated as uncontrolled Medications No Known Medications Results No Known Results Summary Purpose [employer] Submission
--- OUTSIDE RECORDS SUMMARY | 2016-12-20 10:21 | External Medical Summary ---
:1955 Author Organization [employer] Care Team Providers Name Role Phone Joann Amaya Provider Role Unavailable Allergies No Known Allergies Problems Problem Type Condition Code Onset Dates Condition Status Problem Polyneuropathy in diabetes 357.2 Active Problem Anemia in chronic kidney disease 285.21 Active Problem Renal dialysis status V45.11 Active Problem Chronic kidney disease, unspecified 585.9 Active Problem Essential hypertension, benign 401.1 Active Problem Blindness of both eyes, impairment 369.00 Active level not further specified Problem Diabetes Mellitus Type 2, not stated 250.00 Active as uncontrolled Medications Medication Code Code Instructions Start End Date Status Dosage System Date Fluticasone [facility] 99872-97 50 MCG/ACT July 22, spray in Propionate 70-99 Nasally Once a 2014 each [place] [address]-87 100 MG Orally July 22September 20, 1 capsule 22-01 Three times a 2014 2014 [place] [address]-73 10 MG Orally July 22Jan 18, 1 tablet 04-43 Once a day 2014 2014 Results No Known Results Summary Purpose [employer] Submission
--- OUTSIDE RECORDS SUMMARY | 2016-12-20 10:21 | External Medical Summary ---
:1955 Author Organization [employer] Care Team Providers Name Role Phone Melvina Amayafany Provider Role Unavailable Allergies, Adverse Reactions, Alerts Substance Reaction Event Type Percocet nausea and vomiting Drug Allergy Lortab nausea and vomiting Drug Allergy Codeine Sulfate nausea and vomiting Drug Allergy Problems Problem Type Condition Code Onset Dates Condition Status Assessment Aftercare following organ transplant V58.44 Active Problem Essential hypertension, benign 401.1 Active Assessment Essential hypertension, benign 401.1 Active Problem Renal [...] impairment 369.00 Active level not further specified Assessment Diabetes with renal manifestations, 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 Active type II or unspecified type, not stated as uncontrolled Assessment Other specified forms of hearing 389.8 Active loss Assessment Kidney replaced by transplant V42.0 Active Medications Medication Code Code Instructions Start End Status Dosage System Date Date Bactrim DS [facility] [address]-27 800-160 MG 1 tablet Orally once a day on Mon, Wed, and Sat NovoLog [facility] [address]-42 100 INJECT 20 UNITS Flexpen THREE TIMES A DAY BEFORE MEALS MagOx 400 [facility] [address] 400 (241.3 Mg) not defined MG Orally BID Lantus [facility] 47302964240 100 unit/mL INJECT 16 UNITS SoloStar EVERY AT BEDTIME PredniSONE [facility] [address]-73 5 MG Orally 1 tablet with Once a day food or milk Tylenol [facility] [address]-51 Orally prn 1 tablet as needed MiraLax [facility] [address]-93 Orally prn as directed Prilosec [facility] [address]-27 20 MG Orally 1 capsule Once a day Benefiber [facility] [address]-34 Orally prn as directed Prograf [facility] [address]-43 1 MG Orally 4 caps in am and BID 3 caps in evening BD U/F Short ND 0 31 X 09/04 USE ONE FOUR Pen Needle TIMES A DAY TO INJECT INSULIN SUBCUTANEOUSLY Promethazine [facility] [address]-87 12.5 MG Orally 1 tablet HCl Three times a day prn Glucose [facility] [address]-54 Orally prn not defined Celexa [facility] [address]-21 20 MG Orally 1 tablet Once a day Myfortic [facility] [address]-00 360 MG Orally 2 tabs BID Valcyte [facility] [address]-97 450 MG Orally 1 tab daily Procedures Procedure Coding System Code Date [facility] visit New Patient CPT-4 G0466 September 01, 2014 [facility] visit Established Patient CPT-4 G0467 September 01, 2014 HEMOGLOBIN A1C, IN HOUSE CPT-4 52924 September 01, 2014 OFFICE VISIT, EST-LOW COMPLEXITY (15 MIN.) CPT-4 27268 September 01, 2014 Vital Signs Date/Time: September 01, 2014 Height 61 in Weight 149.5 lbs Temperature 98.1 F Blood Pressure Diastolic 60 mm Hg Blood Pressure Systolic 120 mm Hg Cardiac Monitoring Heart Rate 64 /min BMI 28.24 Index Respiratory Rate 16 /min Results No Known Results Summary Purpose [employer] Submission
--- NOTE | 2016-12-20 10:59 | History & Physical Report ---
<Carina Mares V - Last Filed: 12/20/16 10:52> History of Present Illness Date: 12/20/16 Chief complaint: right axilla wound, failed outpatient treatment HPI: Liudmila is a pleasant 61 year old female who has been under the care of Dr KATIE Laboy at [facility] since beginning of October for a right axilla wound. He has been intermittently I/D with packing due to persistent infections since that time. She had recently been on PO Bactrim however was seen yesterday for fever and vomiting and received IV fluids, Zofran and antibiotics were changed to Cipro and clindamycin. Since then she is unable to keep PO meds and fluids down. Given these systemic symptoms and worsening nausea/vomiting the Hospitalists team was contacted and accepted as a direct admission for further acute evaluation and treatment. On arrival to [facility] she is afebrile at 98.1, Pulse 75, BP 109/56. She is alert and orientated and complains of persistent nausea accommodated with significant right axilla pain. Wound is currently packed on arrival with rubber band present. Wound culture reviewed from 11/27/16 that was positive for Staphylococcus aureus (Oxacillin sensitive) and Pseudomonas Aeruginosa, which is pansensitive. Review of Systems Comprehensive ROS: completed and no additional positive findings except those as stated - Constitutional Constitutional: Present: chills, fatigue, fever(s), malaise - EENMT Eyes: Present: loss of vision (blind chronically) - Gastrointestinal Gastrointestinal: Present: nausea, vomiting - Integumentary/Breasts Integumentary: Present: as per HPI, erythema, wounds (Right axilla) [facility] Patient Stated Medical History Type II diabetes History of kidney transplant Chronic peripheral neuropathy Blindness. Hypertension GERD History of kidney stones Hx of Anemia Osteoarthritis Depression Hearing loss Surgical History: Hysterectomy-1984. Bilateral eye laser-2010, 2011. Left arm fistula-2012. Nephrectomy, and renal transplant 07/2014. Left knee surgery 2010 Family History: Family History Maternal Grandmother Diabetes High blood pressure Stroke Mother Liver cancer Maternal Aunt Diabetes High blood pressure - Social History Smoking status: Former smoker Substance use type: does not use Alcohol intake: former Alcohol intake frequency: does not drink Social history: Primary care provider-Joann Amaya APRN at [facility]. Oncology Navigator-Dr. Leonidas Rasheed Medications Home Medications Medication Instructions Recorded Confirmed Type Magnesium 250 mg PO BID #0 09/25/15 12/20/16 History Omeprazole Magnesium [Prilosec Otc] 20 mg PO DAILY #0 09/25/15 12/20/16 History Tacrolimus [Prograf] 1 mg PO BID #0 09/25/15 12/20/16 History predniSONE [Prednisone] 5 mg PO DAILY #0 09/25/15 12/20/16 History Tacrolimus [Prograf] 0.5 mg PO BID #0 09/26/15 12/20/16 History Promethazine HCl 12.5 mg PO DAILY #0 02/03/16 12/20/16 History prednisoLONE acetate [Omnipred] 1 drop OP BID #0 02/06/16 12/20/16 History Amlodipine Besylate 5 mg PO DAILY #0 03/23/16 12/20/16 History zolpidem 10 mg tablet 10 mg PO HS PRN 09/11/16 12/20/16 History Lantus (insulin glargine) 100 20 unit SQ HS ml 09/13/16 12/20/16 History unit/mL SQ mycophenolate sodium 360 mg 360 mg PO BID tab 09/13/16 12/20/16 History tablet,delayed release Cholecalciferol (Vitamin D3) 1 tab PO DAILY 10/20/16 12/20/16 History [Vitamin D3] Citalopram [Celexa] 20 mg PO DAILY 10/20/16 12/20/16 History Insulin Aspart [Novolog Flexpen] 10 unit SQ WB 10/20/16 12/20/16 History Insulin Aspart [Novolog Flexpen] 14 unit SQ WL 10/20/16 12/20/16 History Insulin Aspart [Novolog Flexpen] 15 unit SQ WS 10/20/16 12/20/16 History Pravastatin [Pravachol] 20 mg PO HS 10/20/16 12/20/16 History Allergies Allergy/AdvReac Type Severity Reaction Status Date / Time codeine Allergy Intermediate Verified 09/25/16 10:31 hydrocodone bit AdvReac Intermediate NAUSA Uncoded 09/25/16 10:31 VOMITTING oxycodone HCl AdvReac Intermediate NAUSEA Uncoded 09/25/16 10:31 VOMITTING Exam - Constitutional Present: mild distress, well nourished, well developed - Routine HEENT Exam Eye: Present: EOMI ENT: Present: mucous membranes moist, dentition normal - Routine Neck Exam Present: full ROM - Routine Respiratory Exam Present: CTA bilaterally. Absent: wheezes - Routine Cardiovascular Exam Present: RRR, S1, S2. Absent: murmur - Routine Abdominal Exam Present: soft, normoactive bowel sounds, non distended. Absent: tenderness - Routine Extremities Exam Present: full ROM, normal capillary refill Comments: Left arm fistula - Routine Back/Spine/Pelvis Exam Back/Spine: Present: full ROM - Routine Skin Exam Present: intact, dry, warm Comments: Right axilla wound with rubberband packing - Routine Neurological Exam Present: alert, oriented X3, CN II-XII intact, moving all extremities. Absent: vision grossly intact, hearing grossly intact - Routine Psychiatric Exam Present: normal affect, normal thought process Results - Labs CBC & Chem 7: 12/20/16 10:33 12/20/16 10:37 Assessment and Plan (1) Wound, open axilla Current visit: Yes Status: Acute (2) Failure of outpatient treatment Current visit: Yes Status: Acute (3) Severe sepsis Current visit: Yes Status: Acute DVT Prophylaxis: SCD's Resuscitation Status: Full Code Assessment and Plan: Impression Septic Shock- With Lactate of 4. Right axilla wound, failed outpatient treatment Diabetes Blindness Renal transplant Hypertension GERD Diabetic neuropathy Plan We will admit patient to outpatient observation initially, however will change to inpatient status given her criteria of septic shock. She is admitted for right axilla abscess, failed outpatient treatment. Obtain the following laboratory studies on admission. CBC, CMP, CRP, venous lactate, pro calcitonin, MRSA swab, blood cultures 2. Venous lactate results are elevated at 4.0, indicating severe sepsis. Recheck Venous Lactate at 1430 as per sepsis protocol. Clinically, she appears hemodynamically stable as she is afebrile. Vital signs are normal on admission. Will continue to monitor these carefully every hour Initiate IV Fluids 30 ml/kg bolus for total of 2400ml. Will start IV vancomycin and meropenem and for coverage of staph aureus and Pseudomonas. qSOFA score on admission is 0/3 which indicated mortality related to sepsis. Consultation placed to Dr. Roca for ongoing wound evaluation and treatment. Monitor Accu-Cheks carefully. Will need to reconcile home medications and order accordingly. It is important patient continues on her anti-rejection medications. Morphine as needed for pain control and Zofran as needed for nausea SCDs to bilateral lower extremity for DVT prophylaxis Will discuss further orders and plan of care with attending, Dr. Lucas. At time of discharge medical care will return to primary care provider, Joann Tamayo APRN at [facility] Hospital Course Summary Disclaimer: The visit summary below is not to be considered part of the above Progress Note. Hospital Course: 12/20/16 - initial admission Impression Septic Shock- With Lactate of 4. Right axilla wound, failed outpatient treatment Diabetes Blindness Renal transplant Hypertension GERD Diabetic neuropathy Plan We will admit patient to outpatient observation initially, however will change to inpatient status given her criteria of septic shock. She is admitted for right axilla abscess, failed outpatient treatment. Obtain the following laboratory studies on admission. CBC, CMP, CRP, venous lactate, pro calcitonin, MRSA swab, blood cultures 2. Venous lactate results are elevated at 4.0, indicating severe sepsis. Recheck Venous Lactate at 1430 as per sepsis protocol. Clinically, she appears hemodynamically stable as she is afebrile. Vital signs are normal on admission. Will continue to monitor these carefully every hour Initiate IV Fluids 30 ml/kg bolus for total of 2400ml. Will start IV vancomycin and meropenem and for coverage of staph aureus and Pseudomonas. qSOFA score on admission is 0/3 which indicated mortality related to sepsis. Consultation placed to Dr. Roca for ongoing wound evaluation and treatment. Monitor Accu-Cheks carefully. Will need to reconcile home medications and order accordingly. It is important patient continues on her anti-rejection medications. Morphine as needed for pain control and Zofran as needed for nausea SCDs to bilateral lower extremity for DVT prophylaxis Will discuss further orders and plan of care with attending, Dr. Lucas. At time of discharge medical care will return to primary care provider, Joann Tamayo APRN at [facility] <Shira Lucas - Last Filed: 12/20/16 16:40> History of Present Illness Date: 12/20/16 [facility] Patient Stated Medical History Hearing Loss Yes Macular Degeneration Yes: blind Heart Murmur Yes Hypertension Yes Diabetes Mellitus Type 2 Yes Gastroesophageal Reflux Yes Disease Hx Kidney Stones Yes Hx Renal Disease Yes: Diabetes related kidney failure Hx Urinary Tract Infection Yes Anemia Yes Osteoarthritis Yes Depression Yes Clinic Medical History (Last Reviewed 09/25/16 @ 10:39 by Rk Salamanca MD) Uncontrolled type 2 diabetes mellitus (Chronic Medical ~1991) Poor control at all times of day. Diabetic peripheral neuropathy associated with type 2 diabetes mellitus ( Chronic Medical) Pains are getting worse. Should try alpha lipoic acid. 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 Family History: Family History (Last Reviewed 09/25/16 @ 10:39 by Rk Salamanca MD) Maternal Grandmother Diabetes High blood pressure Stroke Mother Liver cancer Maternal Aunt Diabetes High blood pressure Exam Vital Signs: Temperature 96.9 F 12/20/16 15:40 Pulse Rate 69 12/20/16 15:40 Respiratory Rate 16 12/20/16 15:40 Blood Pressure 122/58 12/20/16 15:40 Pulse Oximetry 92 12/20/16 15:40 Height/Weight/BMI: Height 1.5 m Weight 81 kg Body Mass Index 36.0 Results - Labs CBC & Chem 7: 12/20/16 10:33 12/20/16 10:37 Microbiology Results: Microbiology 12/20/16 10:36 Peripheral/Iv Start Blood Culture - Preliminary Culture Initiated - Results Pending 12/20/16 10:31 Peripheral/Iv Start Blood Culture - Preliminary Culture Initiated - Results Pending Assessment and Plan (1) Wound, open axilla Current visit: Yes Status: Acute (2) Failure of outpatient treatment Current visit: Yes Status: Acute (3) Severe sepsis Current visit: Yes Status: Acute (4) Renal transplant recipient 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 Conley Wili his it sales consultant. He recommends continuing usual dose of Prograf and prednisone. He recommended holding mycophenolate for approximately one week due to her severe infection. This should be restarted when infection has improved. Current visit: Yes Status: Acute Assessment and Plan: 12/20/2016-I reviewed this chart, the patient history, and the WINDOW CLEANER's/PA's documented findings as above. We discussed and formulated the assessment and plan as above with the additions below.-Dr. Lucas I saw the patient shortly after her arrival. She stated that she had had a lump under her armpit that she noticed in September. [facility] [address] Laboy and had what sounds like an incision and drainage. She had 2 more abscesses drained since that time. She was on a round of Bactrim starting around October 22. Cultures of her wound were obtained on 11/27/2016 and revealed АНДРЕЙ and Pseudomonas. Pseudomonas was intermediate sensitivity to cefepime and resistant to Zosyn. It was sensitive to ciprofloxacin, gentamicin, meropenem, and tobramycin. The АНДРЕЙ was sensitive to clindamycin, erythromycin, oxacillin, tetracycline, and Bactrim. The patient was feeling worse 2 days ago and developed a fever up to 102. She returned to [facility] yesterday and was given IV fluids and oral Cipro and clindamycin. Today she returned to [facility] and stated that she was vomiting so much she couldn't keep her medications down. She had a temperature of 101. I was called by Dr. Laboy who requested that she be admitted directly for failed outpatient treatment of her abscess with cellulitis. The patient states that she's had poor by mouth intake because she has not been hungry. She states that she has pain in the right axilla and has pain in her arm down just past her elbow. She states this pain in her arm down to her elbow is new. The patient has history of renal transplant and has been taking her antirejection medication. On exam the patient is alert and in mild distress secondary to pain. HEENT reveals oropharynx to be mildly dry. Neck is supple. There is no lymphadenopathy in the neck. Chest is clear to auscultation. Cardiovascular reveals a regular rate and rhythm. Abdomen is soft, obese, nontender with positive bowel sounds. Extremities reveal no edema in the legs. She has no edema in either arm. She does have edema, tenderness and some erythema in the right axilla. She has a drain in place. She has some bruising over the right anterior chest. Pertinent lab reveals white count of 15.8, neutrophils 85%, bands 1% Carbon dioxide was 20, BUN 27, creatinine 1.6 which is close to her baseline of 1.2-1.6. Lactate 4.1 and on repeat is 0.6. Pro calcitonin 1.46. C-reactive protein 390.5 CT scan of the chest shows significant inflammation in the right axilla without focal fluid collection or drainable abscesses. There was a report of several foci of gas. I did discuss this with Dr. Pandya. This does not look typical for necrotizing fasciitis. Impression Septic shock-present on admission-secondary to axillary abscess Axillary abscess with some surrounding cellulitis Renal transplant patient-creatinine is baseline Diabetes mellitus on insulin Blindness Hypertension GERD Diabetic neuropathy Plan The patient was given 30 ML's per kilogram of normal saline for septic shock. Fortunately, lactate has normalized. The patient was started on vancomycin and meropenem for abscess. Previous cultures revealed АНДРЕЙ and Pseudomonas. We'll monitor vital signs closely. Monitor Accu-Cheks and give Lantus insulin. Give sliding scale insulin as needed. Will restart patient's insulin with meals if needed. We'll start lactobacillus. Dr. Roca was consulted for surgical opinion regarding the patient's recurrent abscess/wound. I did discuss the patient with Dr. Jarvis Williamson, patient's it sales consultant. He stated that creatinine was at baseline. He would continue the patient's prednisone and Prograf at current dosages. He recommends holding mycophenolate for approximately one week secondary to her severe infection. He stated this could be restarted when infection is better. Hospital Course Summary Disclaimer: The visit summary below is not to be considered part of the above Progress Note.
[2016-12-20] MEDS ORDERED: VANCOMYCIN - PHARMACY CONSULT MC ONE (11:15)
[2016-12-20] MEDS ORDERED: NS 1,000 ML IV SCH (11:15)
--- NOTE | 2016-12-20 11:47 | Pharmacy Consult-Antibiotics ---
Pharmacy Consult-Vancomycin - Laboratory Information WBC 15.8 T/MM3 (4.5-11.0) H 12/20/16 10:33 BUN 27.0 MG/DL (7-17) H 12/20/16 10:37 Creatinine 1.6 MG/DL (0.7-1.2) H 12/20/16 10:37 Procalcitonin 1.46 NG/ML 12/20/16 10:37 - Consult Information VANCOMYCIN CONSULT: Dx: axillary abscess. Current Renal Fx: SCr = 1.6mg/dl. Will give Vancomycin 1.25GM IV q18hrs after a vancomycin 1.5gm loading dose. Will continue to monitor and adjust regimen to maintain therapeutic levels. Thank you.
--- NOTE | 2016-12-20 11:52 | General Surgery Consult Note ---
Consult date: 12/20/16 Attending Physician: Shira Lucas MD Primary care provider-Joann Amaya APRN at [facility]. Podiatry Assistant-Dr. Leonidas Rasheed Reason for consult: wound care [facility] Patient Stated Medical History Hearing Loss Yes Macular Degeneration Yes: blind Heart Murmur Yes Hypertension Yes Diabetes Mellitus Type 2 Yes Gastroesophageal Reflux Yes Disease Hx Kidney Stones Yes Hx Renal Disease Yes: Diabetes related kidney failure Hx Urinary Tract Infection Yes Anemia Yes Osteoarthritis Yes Depression Yes Clinic Medical History (Last Reviewed 09/25/16 @ 10:39 by Rk Salamanca MD) Uncontrolled type 2 diabetes mellitus (Chronic Medical ~1991) Poor control at all times of day. Diabetic peripheral neuropathy associated with type 2 diabetes mellitus ( Chronic Medical) Pains are getting worse. Should try alpha lipoic acid. 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 Surgical History: Hysterectomy-1984. Bilateral eye laser-2010, 2011. Left arm fistula-2012. Nephrectomy, and renal transplant 07/2014. Left knee surgery 2010 Family History: Family History (Last Reviewed 09/25/16 @ 10:39 by Rk Salamanca MD) Maternal Grandmother Diabetes High blood pressure Stroke Mother Liver cancer Maternal Aunt Diabetes High blood pressure - Social History Smoking status: Former smoker Medications Home Medications Medication Instructions Recorded Confirmed Type Citalopram Hydrobromide 20 mg PO DAILY #0 04/17/14 10/20/16 History [Citalopram HBr] Magnesium 250 mg PO BID #0 09/25/15 10/20/16 History Omeprazole Magnesium [Prilosec Otc] 20 mg PO DAILY #0 09/25/15 10/20/16 History Pravastatin Sodium 20 mg PO HS #0 09/25/15 10/20/16 History Tacrolimus [Prograf] 1 mg PO BID #0 09/25/15 10/20/16 History predniSONE [Prednisone] 5 mg PO DAILY #0 09/25/15 10/20/16 History Tacrolimus [Prograf] 0.5 mg PO BID #0 09/26/15 10/20/16 History Promethazine HCl 25 mg PO DAILY #0 02/03/16 10/20/16 History Latanoprost 1 drop BOTH EYES HS #0 bottle 02/06/16 10/20/16 History prednisoLONE acetate [Omnipred] 1 drop OP TID #0 02/06/16 10/20/16 History Amlodipine Besylate 5 mg PO DAILY #0 03/23/16 10/20/16 History zolpidem 10 mg tablet 10 mg PO HS PRN 09/11/16 10/20/16 History Lantus (insulin glargine) 100 20 unit SQ HS ml 09/13/16 10/20/16 History unit/mL SQ mycophenolate sodium 360 mg 360 mg PO BID tab 09/13/16 10/20/16 History tablet,delayed release Cholecalciferol (Vitamin D3) 1 tab PO DAILY 10/20/16 10/20/16 History [Vitamin D3] Citalopram [Celexa] 20 mg PO DAILY 10/20/16 10/20/16 History Insulin Aspart [Novolog Flexpen] 10 unit SQ WB 10/20/16 10/20/16 History Insulin Aspart [Novolog Flexpen] 14 unit SQ WL 10/20/16 10/20/16 History Insulin Aspart [Novolog Flexpen] 15 unit SQ WS 10/20/16 10/20/16 History Metoclopramide HCl [Reglan] 5 mg PO PRN 10/20/16 10/20/16 History Pravastatin [Pravachol] 20 mg PO HS 10/20/16 10/20/16 History Allergies Allergy/AdvReac Type Severity Reaction Status Date / Time codeine Allergy Intermediate Verified 09/25/16 10:31 hydrocodone bit AdvReac Intermediate NAUSA Uncoded 09/25/16 10:31 VOMITTING oxycodone HCl AdvReac Intermediate NAUSEA Uncoded 09/25/16 10:31 VOMITTING Review of Systems 10-point ROS: negative except for HPI and the following: - General General: Present: fever, chills - Eyes/Ears/Nose/Throat Eyes: Present: vision problems (totally blind) Ear Nose Throat: Present: hearing problems (hearing aids) - Gastrointestinal Gastrointestinal: Present: nausea, vomiting - Genitourinary Additional comments: post Kidney transplant - Neurological Neurological: Present: numbness (peripheral neuropathy) - Psychiatric Psychiatric: Present: depression - Endocrine Endocrine: Present: diabetes - Vital Signs Last Vital Signs Temp 98.1 F 12/20/16 10:27 Pulse 75 12/20/16 10:27 Resp 20 12/20/16 10:27 BP 109/56 12/20/16 10:27 Pulse Ox 93 12/20/16 10:27 - Laboratory Result Diagrams: 12/20/16 10:33 12/20/16 10:37 - Microbiogy Microbiology 12/20/16 10:36 Peripheral/Iv Start Blood Culture - Preliminary Culture Initiated - Results Pending 12/20/16 10:31 Peripheral/Iv Start Blood Culture - Preliminary Culture Initiated - Results Pending General Surgery Results - Results Labs: 12/20/16 10:33 12/20/16 10:37 Microbiology: Microbiology 12/20/16 10:36 Peripheral/Iv Start Blood Culture - Preliminary Culture Initiated - Results Pending 12/20/16 10:31 Peripheral/Iv Start Blood Culture - Preliminary Culture Initiated - Results Pending Hospital Course Summary Disclaimer: The visit summary below is not to be considered part of the above Progress Note. Hospital Course: 12/20/16 - initial admission Impression Septic Shock- With Lactate of 4. Right axilla wound, failed outpatient treatment Diabetes Blindness Renal transplant Hypertension GERD Diabetic neuropathy Plan We will admit patient to outpatient observation initially, however will change to inpatient status given her criteria of septic shock. She is admitted for right axilla abscess, failed outpatient treatment. Obtain the following laboratory studies on admission. CBC, CMP, CRP, venous lactate, pro calcitonin, MRSA swab, blood cultures 2. Venous lactate results are elevated at 4.0, indicating severe sepsis. Recheck Venous Lactate at 1430 as per sepsis protocol. Clinically, she appears hemodynamically stable as she is afebrile. Vital signs are normal on admission. Will continue to monitor these carefully every hour Initiate IV Fluids 30 ml/kg bolus for total of 2400ml. Will start IV vancomycin and meropenem and for coverage of staph aureus and Pseudomonas. qSOFA score on admission is 0/3 which indicated mortality related to sepsis. Consultation placed to Dr. Roca for ongoing wound evaluation and treatment. Monitor Accu-Cheks carefully. Will need to reconcile home medications and order accordingly. It is important patient continues on her anti-rejection medications. Morphine as needed for pain control and Zofran as needed for nausea SCDs to bilateral lower extremity for DVT prophylaxis Will discuss further orders and plan of care with attending, Dr. Lucas. At time of discharge medical care will return to primary care provider[facility]
[2016-12-20 12:02] VITALS: BMI 36.0
[2016-12-20] MEDS: NS 1,000 ML IV SCH ×4 (12:34→21:08)
[2016-12-20] MEDS: MEROPENEM 1 GM in NS 100 ML IV SCH ×2 (13:30→23:53)
[2016-12-20] MEDS: MORPHINE SULFATE 2 MG SYRINGE IVP PRN ×3 (14:47→23:52)
--- NOTE | 2016-12-20 14:53 | CT Scan Report ---
Indication: Abscess right axilla PROCEDURE: CT chest wo con: Encounter: Initial Comparison: None Technique: Axial CT images were performed through the chest without intravenous contrast. Coronal and sagittal two-dimensional reformats. Automated Exposure Control and Iterative Reconstruction dose reducing techniques were utilized. Findings: Right upper lobe area of scarring. No consolidative pneumonia. No pleural effusion or pneumothorax. The central airways are patent. No axillary adenopathy on the left. There is inflammation in the right axilla with multiple small presumably reactive lymph nodes and several foci of gas. There is no loculated fluid collection or drainable abscess appreciated. Heart size is normal. No pericardial effusion. The upper abdomen shows no acute findings. The gallbladder is surgically absent. Fatty replaced pancreas, atrophic bilateral kidneys. Impression: Significant inflammation in the right axilla without focal fluid collection or drainable abscess. .
[2016-12-20] MEDS ORDERED: GLUCOSE ORAL GEL 40% 37.5gm PO PRN (16:13)
[2016-12-20] MEDS ORDERED: DEXTROSE 50% SYRINGE 50ml (1 AMP) IVP PRN (16:13)
[2016-12-20] MEDS: PredniSONE 5 MG TABLET PO SCH ×2 (17:03→17:11)
[2016-12-20] MEDS: INSULIN GLARGINE 100unit/ml INJECTION SQ SCH ×2 (17:04→20:43)
--- NOTE | 2016-12-20 20:32 | Consultation ---
DATE OF SERVICE 12/20/2016 FINDINGS Mrs. Shaikh is a 61-year-old female who I was asked to see today as a result of ongoing abscess involving the right axilla. Patient informs me that in September of this year while visiting a family member in [place] she began to develop significant tenderness and redness within her right axilla. The patient states that she returned to home here at [place] and was seen by the emergency room initially. She was placed on antibiotics. Patient states that in October the antibiotics "did not work" and she had [facility]. Patient states at that time she had an abscess that had developed which was opened and drained by Dr. Jean Claude Laboy. She states that he had placed a "rubber band" through the opening at that time. Patient states that she has had several recurrences of this abscess within her right axilla. Recently she began to develop a fever associated with a component of nausea and vomiting. The patient presented to our facility and was subsequently admitted. PAST MEDICAL HISTORY, PAST SURGICAL HISTORY, MEDICATIONS, ALLERGIES, SOCIAL HISTORY, FAMILY HISTORY, REVIEW OF SYSTEMS Performed by my nurse practitioner, Rk Baires APRN. PHYSICAL EXAM GENERAL: Mrs. Shaikh is a 61-year-old female who does not appear to be in acute distress. VITAL SIGNS: Temperature 96.9, pulse 68, respirations 16, blood pressure 127/63 , SAO2 94% on room air. HEENT: Normocephalic. The patient is blind. NECK: Supple without lymphadenopathy. CHEST: Clear to auscultation bilaterally. Attention was focused to the right axilla. The patient does have two small openings present within her right axilla with a "rubber band" coursing through these two small openings. Rubber band has been "tied upon itself". There is some induration noted within the right axilla upon palpation. One can see some purulent drainage coming forth from the incision from the small openings. There is not significant erythema, however, extending up on to the arm itself or up to the lateral chest wall. HEART: Rate and rhythm. ABDOMEN: Soft, nontender. EXTREMITIES: Without clubbing, cyanosis or edema. NEUROLOGIC: Patient appears without focal sensorimotor deficits with the exception of her blindness. LABORATORY/RADIOGRAPHIC EVALUATION The patient had a CBC upon admission. White count was 15.8. Hemoglobin is 12.1. CMP obtained and reviewed. Creatinine slightly elevated at 1.6. Total bilirubin is slightly elevated at 1.5. CRP is significantly elevated at 390. Blood cultures have been obtained and results are pending. My nurse practitioner did obtain a chest CT scan. Significant inflammation was noted within the right axilla without focal fluid collection or drainable abscess. ASSESSMENT 61-year-old female who is immunosuppressed following renal transplantation who has chronic "smoldering" abscess involving right axilla. PLAN From a surgical standpoint it was my recommendation to the patient that we go ahead and proceed with more of a formal exploration of this chronic smoldering infection involving her right axilla. I believe this would be best carried out in an operative setting under anesthesia. I recommend that we go ahead and proceed with formal incision and drainage and excisional surgical debridement as indicated upon intraoperative findings. I did discuss with the patient what this would entail and its associated risk which include but was not inclusive of bleeding and further infection. The patient understood and wished to proceed. I otherwise agree with current management of this patient. Apparently she has positive culture for АНДРЕЙ and Pseudomonas from prior wound culture on an outpatient basis. FRANCY
[2016-12-20] MEDS: INSULIN ASPART 100unit/ml INJECTION SQ PRN (20:41)
[2016-12-20] MEDS: MAGNESIUM OXIDE 400 MG TABLET PO SCH (20:44)
[2016-12-20] MEDS: TACROLIMUS 0.5 MG CAPSULE PO SCH (20:45)
[2016-12-20] MEDS: TACROLIMUS 1 MG CAPSULE PO SCH (20:46)
[2016-12-20] MEDS: PRAVASTATIN 20 MG TABLET PO SCH (20:46)
[2016-12-20] MEDS: PrednisoLONE 1% EYE DROPS 5ml OP SCH (20:47)
[2016-12-21] MEDS: MORPHINE SULFATE 2 MG SYRINGE IVP PRN ×4 (04:46→23:55)
[2016-12-21] MEDS: INSULIN ASPART 100unit/ml INJECTION SQ PRN (07:07)
[2016-12-21] MEDS: OMEPRAZOLE 20 MG CAPSULE PO SCH (07:07)
[2016-12-21] MEDS: NS 1,000 ML IV SCH (07:09)
[2016-12-21] MEDS ORDERED: INSULIN ASPART 100unit/ml INJECTION SQ PRN (07:54)
[2016-12-21] MEDS: TACROLIMUS 1 MG CAPSULE PO SCH ×2 (08:00→20:39)
[2016-12-21] MEDS: TACROLIMUS 0.5 MG CAPSULE PO SCH ×2 (08:01→20:30)
[2016-12-21] MEDS: CITALOPRAM 20 MG TABLET PO SCH (09:00)
[2016-12-21] MEDS: PredniSONE 5 MG TABLET PO SCH (09:00)
[2016-12-21] MEDS: MAGNESIUM OXIDE 400 MG TABLET PO SCH ×2 (09:00→20:32)
[2016-12-21] MEDS: PrednisoLONE 1% EYE DROPS 5ml OP SCH ×2 (10:17→20:33)
--- NOTE | 2016-12-21 10:52 | Progress Note ---
<Carina Mares V - Last Filed: 12/21/16 10:39> Subjective: Liudmila is seen today in followup. She reports that overall she is feeling better. Pain in the right axilla wound is controlled by pain medications. Denies having shortness of breath, chest pain or GI concerns. Blood sugars have been elevated , Fasting sugar this morning was 217. Objective Vital signs: Temperature 97.4 F 12/21/16 08:00 Pulse Rate 72 12/21/16 08:00 Respiratory Rate 18 12/21/16 08:00 Blood Pressure 129/65 12/21/16 08:00 Pulse Oximetry 94 12/21/16 08:00 Height/Weight/BMI: Height 1.5 m Weight 82.2 kg Body Mass Index 36.0 - Constitutional Present: no acute distress, well nourished, well developed - Routine HEENT Exam Eye: Present: EOMI ENT: Present: mucous membranes moist, dentition normal - Routine Respiratory Exam Present: CTA bilaterally. Absent: wheezes - Routine Cardiovascular Exam Present: RRR, S1, S2. Absent: murmur - Routine Abdominal Exam Present: soft, normoactive bowel sounds, non distended. Absent: tenderness - Routine Extremities Exam Present: pulses intact, normal capillary refill - Routine Back/Spine/Pelvis Exam Back/Spine: Present: full ROM - Routine Skin Exam Present: intact, dry, warm - Routine Neurological Exam Present: alert, oriented X3, CN II-XII intact - Routine Lymphatic Exam Lymphatic: Absent: adenopathy - Routine Psychiatric Exam Present: normal affect, normal thought process Results - Labs CBC & Chem 7: 12/21/16 04:42 12/21/16 04:42 Microbiology Results: Microbiology 12/20/16 10:36 Peripheral/Iv Start Blood Culture - Preliminary Culture Initiated - Results Pending 12/20/16 10:31 Peripheral/Iv Start Blood Culture - Preliminary Culture Initiated - Results Pending Assessment and Plan (1) Wound, open axilla Current visit: Yes Status: Acute (2) Failure of outpatient treatment Current visit: Yes Status: Acute (3) Severe sepsis Current visit: Yes Status: Acute (4) Renal transplant recipient 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 Conley Wili his cath lab radiology technician. He recommends continuing usual dose of Prograf and prednisone. He recommended holding mycophenolate for approximately one week due to her severe infection. This should be restarted when infection has improved. Current visit: Yes Status: Acute Assessment and Plan: Impression Septic shock-present on admission-secondary to axillary abscess Axillary abscess with some surrounding cellulitis Renal transplant patient-creatinine is baseline Diabetes mellitus on insulin Blindness Hypertension GERD Diabetic neuropathy 12/21/16-Plan Continue with meropenem and vancomycin for treatment of АНДЕРЙ and Pseudomonas wound. Blood cultures remain negative at this time. Leukocytosis has improved, white count today 8.6, and lactate normalized. Appreciate Dr. Roca's recommendations, planning for surgical evaluation and exploring of chronic wound in the right axilla for today. Need to consider further vascular access as patient does have a shunt in the left arm, and right axilla is location of wound. May need to consider central line patient requires long-term IV into buttock treatment. Need to monitor blood sugars and utilize Lantus and sliding scale insulin. Testing sugar this morning was elevated at 217. Patient is currently nothing by mouth for scheduled procedure later today. Continue on prednisone and Prograf. Given history of renal transplant. Mycophenolate on hold due to acute infection. 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 Further orders and plan of care with attending, Dr. Lucas Sepsis Assessment - Evaluation Sepsis screening result: No Definite Risk Hospital Course Summary Disclaimer: The visit summary below is not to be considered part of the above Progress Note. Hospital Course: 12/20/16 - initial admission Impression Septic Shock- With Lactate of 4. Right axilla wound, failed outpatient treatment Diabetes Blindness Renal transplant Hypertension GERD Diabetic neuropathy Plan We will admit patient to outpatient observation initially, however will change to inpatient status given her criteria of septic shock. She is admitted for right axilla abscess, failed outpatient treatment. Obtain the following laboratory studies on admission. CBC, CMP, CRP, venous lactate, pro calcitonin, MRSA swab, blood cultures 2. Venous lactate results are elevated at 4.0, indicating severe sepsis. Recheck Venous Lactate at 1430 as per sepsis protocol. Clinically, she appears hemodynamically stable as she is afebrile. Vital signs are normal on admission. Will continue to monitor these carefully every hour Initiate IV Fluids 30 ml/kg bolus for total of 2400ml. Will start IV vancomycin and meropenem and for coverage of staph aureus and Pseudomonas. qSOFA score on admission is 0/3 which indicated mortality related to sepsis. Consultation placed to Dr. Roca for ongoing wound evaluation and treatment. Monitor Accu-Cheks carefully. Will need to reconcile home medications and order accordingly. It is important patient continues on her anti-rejection medications. Morphine as needed for pain control and Zofran as needed for nausea SCDs to bilateral lower extremity for DVT prophylaxis Will discuss further orders and plan of care with attending, Dr. Lucas. At time of discharge medical care will return to primary care provider, Joann Tamayo APRN at [facility] 12/21/16-Plan Continue with meropenem and vancomycin for treatment of АНДРЕЙ and Pseudomonas wound. Blood cultures remain negative at this time. Leukocytosis has improved, white count today 8.6, and lactate normalized. Appreciate Dr. Roca's recommendations, planning for surgical evaluation and exploring of chronic wound in the right axilla for today. Need to consider further vascular access as patient does have a shunt in the left arm, and right axilla is location of wound. May need to consider central line patient requires long-term IV into buttock treatment. Need to monitor blood sugars and utilize Lantus and sliding scale insulin. Testing sugar this morning was elevated at 217. Patient is currently nothing by mouth for scheduled procedure later today. Continue on prednisone and Prograf. Given history of renal transplant. Mycophenolate on hold due to acute infection. 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 Further orders and plan of care with attending, Dr. Lucas <LanceShira L - Last Filed: 12/21/16 17:38> Objective Vital signs: Temperature 97.6 F 12/21/16 16:34 Pulse Rate 72 12/21/16 16:34 Respiratory Rate 16 12/21/16 16:34 Blood Pressure 165/68 H 12/21/16 16:34 Pulse Oximetry 93 12/21/16 16:34 Height/Weight/BMI: Height 1.5 m Weight 82.2 kg Body Mass Index 36.0 Results - Labs CBC & Chem 7: 12/21/16 04:42 12/21/16 04:42 Microbiology Results: Microbiology 12/21/16 13:45 Axilla,Right Abscess Culture - Preliminary Culture Initiated - Results Pending 12/20/16 10:31 Peripheral/Iv Start Blood Culture - Preliminary No Growth After 1 Day 12/20/16 10:36 Peripheral/Iv Start Blood Culture - Preliminary No Growth After 1 Day Assessment and Plan (1) Wound, open axilla Current visit: Yes Status: Acute (2) Failure of outpatient treatment Current visit: Yes Status: Acute (3) Severe sepsis Current visit: Yes Status: Acute (4) Renal transplant recipient 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 Conley Wili his cath lab radiology technician. He recommends continuing usual dose of Prograf and prednisone. He recommended holding mycophenolate for approximately one week due to her severe infection. This should be restarted when infection has improved. Current visit: Yes Status: Acute Assessment and Plan: 12/21/2016-I reviewed this chart, the patient history, and the HOP STRAINER's/PA's documented findings as above. We discussed and formulated the assessment and plan as above with the additions below.-Dr. Lucas Patient was seen in her room postoperatively. She states she is having some pain in the right axillary region. She denies any chest pain. She denies any shortness of breath. She states otherwise she is feeling okay. On exam she is alert and in no acute distress. HEENT reveals oral membranes to be mildly dry. Chest is clear to auscultation. Cardiovascular reveals a regular rate and rhythm. Abdomen is soft and nontender. Extremities are free of edema Lab today shows improvement with white count down to 8.6 from 15.8. Neutrophils are 92%. Blood sugars are in the 180-200 range. Hemoglobin A1c was 8.5. Dr. Roca notified me that he did remove an approximately fist-sized area of infected tissue from the patient's right axillary region. And instill wound VAC was placed. Deep cultures were obtained. Impression Overall the patient is doing much better today. Septic shock has resolved. She appears to be doing well postoperatively. Continue vancomycin and meropenem and await cultures. Regarding renal transplant-creatinine has improved. Will decrease IV fluids. Continue prednisone 5 mg daily and continue Prograf 1.5 mg daily. Mycophenolate can be's restarted next week. Regarding diabetes, will start insulin with meals at a smaller than usual dose. We'll start 8 units with meals. DC sliding scale insulin and monitor. Blood pressure is elevated today. We will restart amlodipine 5 mg daily. The patient did accidentally receive 30 mg of prednisone this morning. There was a glitch in the ordering of 5 mg of prednisone which automatically ordered a steroid taper starting with 30 mg every morning. This was discussed with the pharmacy housekeeping department worker and will be addressed. We will resume 5 mg of prednisone daily starting tomorrow morning. Hospital Course Summary Disclaimer: The visit summary below is not to be considered part of the above Progress Note.
[2016-12-21] MEDS ORDERED: NS 1,000 ML IV SCH (12:15)
[2016-12-21] MEDS ORDERED: FAMOTIDINE PB 20 MG/50 ML BAG IV ONE (12:15)
--- NOTE | 2016-12-21 12:19 | Anesthesia Preoperative Report ---
Anesthesia Preoperative Record - Date and Time Date: 12/21/16 Preoperative Diagnosis: septic shock axillary abcess failed OP treatment NPO Since Date: 12/20/16 NPO Since Time: 17:30 Allergies/Adverse Reactions: Allergies Allergy/AdvReac Type Severity Reaction Status Date / Time codeine Allergy Intermediate Verified 09/25/16 10:31 hydrocodone bit AdvReac Intermediate NAUSA Uncoded 09/25/16 10:31 VOMITTING oxycodone HCl AdvReac Intermediate NAUSEA Uncoded 09/25/16 10:31 VOMITTING - Vital Signs Vital Signs: Temperature 98.0 F 12/21/16 12:05 Pulse Rate 72 12/21/16 12:05 Respiratory Rate 18 12/21/16 12:05 Blood Pressure 152/67 H 12/21/16 12:05 Pulse Oximetry 95 12/21/16 12:05 Height and Weight: Height 1.5 m Weight 82.2 kg Body Mass Index 36.0 - Medications Inpatient Medications: Current Medications Cholecalciferol (Vit. D-3) 1,000 unit PO DAILY [facility] Last Admin: 12/21/16 10:08 Dose: Not Given Citalopram Hydrobromide (Celexa) 20 mg PO DAILY [facility] Last Admin: 12/21/16 09:00 Dose: Not Given Dextrose (D50%W) 10 - 20 ml IVP PRN PRN PRN Reason: Hypoglycemia Glucose (Glutose 15) 37.5 gm PO PRN PRN PRN Reason: Hypoglycemia Sodium Chloride (Normal Saline) 1,000 mls @ 100 mls/hr IV .Q10H [facility] Last Infusion: 12/21/16 11:45 Dose: 0 mls/hr Vancomycin HCl 1,250 mg/ (Sodium Chloride) 250 mls @ 200 mls/hr IV Q18H [facility] Last Infusion: 12/21/16 10:22 Dose: Infused Meropenem 1 gm/ Sodium (Chloride) 100 mls @ 200 mls/hr IV Q12H [facility] Sodium Chloride (Normal Saline) 1,000 mls @ 50 mls/hr IV .Q20H [facility] Last Admin: 12/21/16 12:05 Dose: 50 mls/hr Insulin Aspart (Novolog) 0 unit SQ SS PRN; Protocol PRN Reason: Hyperglycemia Last Admin: 12/21/16 10:18 Dose: 2 unit Insulin Glargine (Lantus) 20 unit SQ HS [facility] Last Admin: 12/20/16 20:43 Dose: 20 unit Magnesium Oxide (Magox) 200 mg PO BID [facility] Last Admin: 12/21/16 09:00 Dose: Not Given Morphine Sulfate (Morphine Sulfate Inj) 2 mg IVP Q3-4HR PRN PRN Reason: Pain Last Admin: 12/21/16 04:46 Dose: 2 mg Omeprazole (Prilosec) 20 mg PO ACB [facility] Last Admin: 12/21/16 07:07 Dose: Not Given Ondansetron HCl (Zofran) 4 mg IVP Q6H PRN PRN Reason: Nausea &/or vomiting Pravastatin Sodium (Pravachol) 20 mg PO HS [facility] Last Admin: 12/20/16 20:46 Dose: 20 mg Prednisolone Acetate (Pred Forte) 1 drop OP BID [facility] Last Admin: 12/21/16 10:17 Dose: 1 drop Prednisone (Deltasone) 30 mg PO DAILY [facility] PRN Reason: Taper Stop: 12/27/16 08:59 Last Admin: 12/21/16 09:00 Dose: 30 mg Sodium Chloride (Iv Flush) 10 - 80 ml IVF PRN PRN PRN Reason: Flushing Tacrolimus (Prograf) 1 mg PO BID [facility] Last Admin: 12/21/16 08:00 Dose: 1 mg Tacrolimus (Prograf) 0.5 mg PO BID [facility] Last Admin: 12/21/16 08:01 Dose: 0.5 mg Home Medications: Home Medications Medication Instructions Recorded Confirmed Type Magnesium 250 mg PO BID #0 09/25/15 12/20/16 History Omeprazole Magnesium [Prilosec Otc] 20 mg PO DAILY #0 09/25/15 12/20/16 History Tacrolimus [Prograf] 1 mg PO BID #0 09/25/15 12/20/16 History predniSONE [Prednisone] 5 mg PO DAILY #0 09/25/15 12/20/16 History Tacrolimus [Prograf] 0.5 mg PO BID #0 09/26/15 12/20/16 History Promethazine HCl 12.5 mg PO DAILY #0 02/03/16 12/20/16 History prednisoLONE acetate [Omnipred] 1 drop OP BID #0 02/06/16 12/20/16 History Amlodipine Besylate 5 mg PO DAILY #0 03/23/16 12/20/16 History Cholecalciferol (Vitamin D3) 1 tab PO DAILY 10/20/16 12/20/16 History [Vitamin D3] Citalopram [Celexa] 20 mg PO DAILY 10/20/16 12/20/16 History Insulin Aspart [Novolog Flexpen] 10 unit SQ WB 10/20/16 12/20/16 History Insulin Aspart [Novolog Flexpen] 14 unit SQ WL 10/20/16 12/20/16 History Insulin Aspart [Novolog Flexpen] 15 unit SQ WS 10/20/16 12/20/16 History Pravastatin [Pravachol] 20 mg PO HS 10/20/16 12/20/16 History Insulin Glargine [Lantus] 20 unit SQ HS 12/20/16 12/20/16 History Mycophenolate Sodium [Myfortic] 360 mg PO BID 12/20/16 12/20/16 History Zolpidem Tartrate [Ambien] 10 mg PO HS PRN 12/20/16 12/20/16 History Is Patient on Beta May?: No - Medical History Respiratory: Reports: Sleep Apnea (pressumptive), Other (history of tobacco abuse) Cardiovascular: Reports: Hypertension, High Cholesterol Gastrointestional: Reports: Gastroesophageal Reflux Disease (controlled), Morbid Obesity Renal/Endocrine: Reports: Diabetes Mellitus Type 2, Dialysis (history of dialysis. Kidney transplant 2 years ago) Other History: Reports: Other (blind) - Surgical History HEENT Surgeries: Reports: Eye Surgery (Laser Surgery 2010), Tonsillectomy Cardiac Surgeries/Treatments: Reports: Cardiac Catheterization (R/T kidney transplant) GI Surgery/Treatments: Reports: Cholecystectomy Surgery/Treatment: REPORT: Dialysis (July 2014) Musculoskeletal Surgery/Tx: Reports: Other (left knee repair) Reproductive Surgery/Treatment: Reports: Hysterectomy Anesthesia Reactions: None Hx Family Anesthesia Reaction: No History of Motion Sickness: No - Social History Smoking Status: Former smoker (quit 9 years ago) packs per day: 0.25 Pack-years: 36 Hx Chewing Tobacco Use: No Second Hand Exposure: No Substance Use Type: marijuana (last used 10 years ago) Alcohol Intake Frequency: does not drink - Pertinent Findings Laboratory: CBC and BMP 12/21/16 04:42 12/21/16 04:42 BMP 12/21/16 04:42 Sodium 138 Potassium 4.8 Chloride 110 H Carbon Dioxide 21 L BUN 19.0 H Creatinine 1.1 D Glucose 217 H Calcium 8.5 - Physical Exam Respiratory Exam: Present: lungs clear, bilateral breath sounds equal Cardiovascular Exam: Present: regular rate and rhythm - Airway Assessment Mallampati Score: II TMD: 3 Fingerbreadths Neck Extension: fair Teeth: upper dentures, poor dentation (multiple missing lower teeth) Overall Assessment: no airway concerns - ASA ASA Score: 3 - Plan Anesthesia: General TIVA, General Inhalation Gases - Discussion Discussion: Discussed risks/options/alternatives of anesthesia and questions answered. Patient consents. Nursing pain assessment noted. Attestation Statement: Prior to the delivery of any anesthetic medication, I examined the patient, developed the plan, obtained the patient's consent and discussed the risk and benefits of the procedure with the patient/guardian. - Additional Information Seen by Anesthesia: Yes
[2016-12-21] MEDS ORDERED: BUPIVACAINE 0.25%/EPI 1:200,000 30ml SDV ONE (12:25)
[2016-12-21] MEDS ORDERED: FentaNYL 100 MCG/2 ML INJECTION ONE ×2 (12:52→13:41)
[2016-12-21] MEDS ORDERED: PROPOFOL 20 ML ONE (12:53)
[2016-12-21] MEDS ORDERED: BUPIVACAINE 0.25%/EPI 1:200,000 30ml SDV ID ONE (13:38)
--- NOTE | 2016-12-21 14:22 | General Surgery Procedure Note ---
Date of Procedure: 12/21/16 Surgeon: Chanelle Water Pump Installer: Rk Baires APRN Postoperative Diagnosis: right axilla abscess, possible suppurativa hidradenitis Procedure: right axillary wound debridement and placement of Instill wound vac Estimated Blood Loss: See Anesthesia Record.
[2016-12-21] MEDS: FentaNYL 100 MCG/2 ML INJECTION IVP PRN ×2 (15:03→15:13)
--- NOTE | 2016-12-21 15:15 | Anesthesia Postoperative Note ---
- Date and Time Date: 12/21/16 Time: 15:14 - Status Patient Participated in Evaluation: Patient Participated in Person Vital Signs: Temperature 97.7 F 12/21/16 14:38 Pulse Rate 74 12/21/16 15:10 Respiratory Rate 20 12/21/16 15:10 Blood Pressure 173/75 H 12/21/16 15:10 Pulse Oximetry 94 12/21/16 15:10 Respiratory Function: Airway Patent, Regular Respirations Cardiovascular Function: Regular Pulse Mental Status: Alert and Oriented Pain Intensity: 3 Hydration: IV Infusing Complications During Recover: None Apparent - Follow-Up Instructions Instructions: Per Surgeon
[2016-12-21] MEDS: AMLODIPINE 5 MG TABLET PO SCH (18:14)
[2016-12-21] MEDS: MEROPENEM 1 GM in NS 100 ML IV SCH (18:16)
[2016-12-21] MEDS: INSULIN ASPART 100unit/ml INJECTION SQ SCH ×2 (19:51→22:50)
[2016-12-21] MEDS: PRAVASTATIN 20 MG TABLET PO SCH (20:33)
[2016-12-21] MEDS: INSULIN GLARGINE 100unit/ml INJECTION SQ SCH (20:33)
[2016-12-21] MEDS: ZOLPIDEM 10 MG TABLET PO PRN (22:50)
[2016-12-22] MEDS: OMEPRAZOLE 20 MG CAPSULE PO SCH (06:46)
[2016-12-22] MEDS: MORPHINE SULFATE 2 MG SYRINGE IVP PRN ×2 (06:47→20:22)
[2016-12-22] MEDS: SALINE FLUSH 10ml SYRINGE IVF PRN ×2 (06:48→23:49)
[2016-12-22] MEDS: MEROPENEM 1 GM in NS 100 ML IV SCH ×2 (07:00→18:17)
[2016-12-22] MEDS ORDERED: PredniSONE 5 MG TABLET PO SCH (08:00)
--- NOTE | 2016-12-22 08:17 | Pharmacy Consult-Antibiotics ---
Pharmacy Consult-Vancomycin - Laboratory Information WBC 9.2 T/MM3 (4.5-11.0) 12/22/16 01:16 BUN 23.0 MG/DL (7-17) H 12/22/16 01:16 Creatinine 1.2 MG/DL (0.7-1.2) 12/22/16 01:16 Procalcitonin 1.46 NG/ML 12/20/16 10:37 Vancomycin Trough 10.86 UG/ML (15-20) L 12/22/16 01:16 DAY 3 of VANCOMYCIN THERAPY: Renal fx has improved from initial SCr of 1.6 mg/dl. Today SCr 1.2mg/dl Calculated CrCl improved to 59 ml/min today. Target Trough = 15 - 20 mcg/ml Will increase Vancomycin regimen to VANCOMYCIN 1 GM IV Q12HRS, starting today at 1200. This gives calculated peak/trough of 44 / 17 respectively. thank you
[2016-12-22] MEDS: AMLODIPINE 5 MG TABLET PO SCH (08:52)
[2016-12-22] MEDS: PredniSONE 5 MG TABLET PO SCH (08:52)
[2016-12-22] MEDS: PrednisoLONE 1% EYE DROPS 5ml OP SCH ×2 (08:52→21:37)
[2016-12-22] MEDS: CITALOPRAM 20 MG TABLET PO SCH (08:52)
[2016-12-22] MEDS: MAGNESIUM OXIDE 400 MG TABLET PO SCH ×2 (08:52→21:35)
[2016-12-22] MEDS: TACROLIMUS 0.5 MG CAPSULE PO SCH ×2 (08:52→21:35)
[2016-12-22] MEDS: TACROLIMUS 1 MG CAPSULE PO SCH ×2 (09:16→21:41)
[2016-12-22] MEDS: INSULIN ASPART 100unit/ml INJECTION SQ SCH ×3 (09:27→18:16)
--- NOTE | 2016-12-22 13:33 | Progress Note ---
<Carina Mares V - Last Filed: 12/22/16 13:25> Subjective: Liudmila is seen today in follow up. She is sleeping during exam and does not arouse during exam. Sister at her bedside reports that she has not slept in days and is finally catching up. Liudmila is breathing on room air without distress. Wound Vac in intact to Right axilla. She remains afebrile, Leukocytosis improved. Objective Vital signs: Temperature 97.4 F 12/22/16 08:00 Pulse Rate 77 12/22/16 08:00 Respiratory Rate 20 12/22/16 08:00 Blood Pressure 152/69 H 12/22/16 08:00 Pulse Oximetry 91 12/22/16 08:00 Height/Weight/BMI: Height 1.5 m Weight 86.7 kg Body Mass Index 36.0 - Constitutional Present: no acute distress, well nourished, well developed - Routine Respiratory Exam Present: CTA bilaterally. Absent: wheezes - Routine Cardiovascular Exam Present: RRR, S1, S2. Absent: murmur - Routine Abdominal Exam Present: soft, normoactive bowel sounds, non distended. Absent: tenderness - Routine Skin Exam Present: intact, dry, warm Comments: Wound Vac to Right axilla. Mild erythema around vac dressing - Routine Neurological Exam Sleeping - Routine Lymphatic Exam Lymphatic: Absent: adenopathy - Routine Psychiatric Exam Present: normal affect Results - Labs CBC & Chem 7: 12/22/16 01:16 12/22/16 01:16 Microbiology Results: Microbiology 12/21/16 13:45 Axilla,Right Gram Stain - Final 12/21/16 13:45 Axilla,Right Abscess Culture - Preliminary Staphylococcus aureus Group G Streptococcus 12/20/16 10:31 Peripheral/Iv Start Blood Culture - Preliminary No Growth After 2 Days 12/20/16 10:36 Peripheral/Iv Start Blood Culture - Preliminary No Growth After 2 Days Assessment and Plan (1) Wound, open axilla Current visit: Yes Status: Acute (2) Failure of outpatient treatment Current visit: Yes Status: Acute (3) Severe sepsis Current visit: Yes Status: Acute (4) Renal transplant recipient 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 Jarvis Rasheed his cupola man. He recommends continuing usual dose of Prograf and prednisone. He recommended holding mycophenolate for approximately one week due to her severe infection. This should be restarted when infection has improved. Current visit: Yes Status: Acute Assessment and Plan: Impression Septic Shock- With Lactate of 4- Resolved Right axilla wound, failed outpatient treatment Diabetes Blindness Renal transplant Hypertension GERD Diabetic neuropathy 12/22/16- Plan Appreciate wound management by Dr Roca Wound Vac intact. Wound culuture obtained yesterday is positive for Staph Aureus and Group G Strep. Currently on Meropenem and vancomycin, Awaiting culture sensitivities. Continue to monitor blood sugars carefully- NovoLog with meals, Lantus at at bedtime Continue antirejection medications. Given history of renal transplant.- prednisone 5 mg daily and continue Prograf 1.5 mg daily. Blood pressure is intermittently elevated. She was started on Norvasc 5 milligrams daily, yesterday. Will continue to monitor elevated today. We will restart amlodipine 5 mg daily. Overall, leukocytosis improved, white count today 9.2. Continue to follow routine labs. Sepsis Assessment - Evaluation Sepsis screening result: No Definite Risk Hospital Course Summary Disclaimer: The visit summary below is not to be considered part of the above Progress Note. Hospital Course: 12/20/16 - initial admission Impression Septic Shock- With Lactate of 4. Right axilla wound, failed outpatient treatment Diabetes Blindness Renal transplant Hypertension GERD Diabetic neuropathy Plan We will admit patient to outpatient observation initially, however will change to inpatient status given her criteria of septic shock. She is admitted for right axilla abscess, failed outpatient treatment. Obtain the following laboratory studies on admission. CBC, CMP, CRP, venous lactate, pro calcitonin, MRSA swab, blood cultures 2. Venous lactate results are elevated at 4.0, indicating severe sepsis. Recheck Venous Lactate at 1430 as per sepsis protocol. Clinically, she appears hemodynamically stable as she is afebrile. Vital signs are normal on admission. Will continue to monitor these carefully every hour Initiate IV Fluids 30 ml/kg bolus for total of 2400ml. Will start IV vancomycin and meropenem and for coverage of staph aureus and Pseudomonas. qSOFA score on admission is 0/3 which indicated mortality related to sepsis. Consultation placed to Dr. Roca for ongoing wound evaluation and treatment. Monitor Accu-Cheks carefully. Will need to reconcile home medications and order accordingly. It is important patient continues on her anti-rejection medications. Morphine as needed for pain control and Zofran as needed for nausea SCDs to bilateral lower extremity for DVT prophylaxis Will discuss further orders and plan of care with attending, Dr. Lucas. At time of discharge medical care will return to primary care provider, Joann Tamayo APRN at [facility] 12/21/16-Plan Continue with meropenem and vancomycin for treatment of АНДРЕЙ and Pseudomonas wound. Blood cultures remain negative at this time. Leukocytosis has improved, white count today 8.6, and lactate normalized. Appreciate Dr. Roca's recommendations, planning for surgical evaluation and exploring of chronic wound in the right axilla for today. Need to consider further vascular access as patient does have a shunt in the left arm, and right axilla is location of wound. May need to consider central line patient requires long-term IV into buttock treatment. Need to monitor blood sugars and utilize Lantus and sliding scale insulin. Testing sugar this morning was elevated at 217. Patient is currently nothing by mouth for scheduled procedure later today. Continue on prednisone and Prograf. Given history of renal transplant. Mycophenolate on hold due to acute infection. Steel Layer appears to be at baseline as per Rubber Cutting Machine Tender Dr Rasheed. Further orders and plan of care with attending, Dr. Lucas <Shira Lucas - Last Filed: 12/22/16 21:08> Objective Vital signs: Temperature 97.0 F 12/22/16 16:08 Pulse Rate 78 12/22/16 16:08 Respiratory Rate 18 12/22/16 16:08 Blood Pressure 149/74 H 12/22/16 16:08 Pulse Oximetry 93 12/22/16 16:08 Height/Weight/BMI: Height 1.5 m Weight 86.7 kg Body Mass Index 36.0 Results - Labs CBC & Chem 7: 12/22/16 01:16 12/22/16 01:16 Microbiology Results: Microbiology 12/21/16 13:45 Axilla,Right Gram Stain - Final 12/21/16 13:45 Axilla,Right Abscess Culture - Preliminary Staphylococcus aureus Group G Streptococcus 12/20/16 10:31 Peripheral/Iv Start Blood Culture - Preliminary No Growth After 2 Days 12/20/16 10:36 Peripheral/Iv Start Blood Culture - Preliminary No Growth After 2 Days Assessment and Plan (1) Wound, open axilla Current visit: Yes Status: Acute (2) Failure of outpatient treatment Current visit: Yes Status: Acute (3) Severe sepsis Current visit: Yes Status: Acute (4) Renal transplant recipient 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 Conley Wili his cupola man. He recommends continuing usual dose of Prograf and prednisone. He recommended holding mycophenolate for approximately one week due to her severe infection. This should be restarted when infection has improved. Current visit: Yes Status: Acute Assessment and Plan: 12/22/2016-I reviewed this chart, the patient history, and the CARDIO TECH's/PA's documented findings as above. We discussed and formulated the assessment and plan as above with the additions below.-Dr. Lucas Patient was seen late this evening in her room. She states she is feeling well. She is eating and drinking without difficulties. Her right axillary wound has fairly good pain control. She has complained of back pain and states this is not uncommon for her to have back spasms. This improved with morphine. She has intolerance to codeine, hydrocodone and oxycodone but tolerates morphine without difficulties. She denies any fevers, chills or sweats. On exam she is alert and oriented and in no acute distress. Chest is clear to auscultation. Cardiovascular reveals a regular rate and rhythm. Abdomen is soft with positive bowel sounds. Extremities are free of edema. Right axillary wound shows wound VAC in place and there is no erythema in the surrounding skin. Overall, she appears to be doing quite well. Wound culture shows staph aureus and group G strep. Sensitivities are pending. Continue meropenem and vancomycin for now. Restart mycophenolate this coming week if she continues to do well regarding her infection. Blood sugars are currently well controlled on her current home insulin regimen. Renal function is stable. Hospital Course Summary Disclaimer: The visit summary below is not to be considered part of the above Progress Note.
--- NOTE | 2016-12-22 14:46 | Progress Note ---
DATE OF SERVICE 12/22/2016 FINDINGS The patient today was resting. States she is experiencing some discomfort within her right axilla. EXAM VITAL SIGNS: Afebrile, normotensive. Please refer to EMR. CHEST: Clear to auscultation bilaterally. Attention was focused to the right axilla. Wound VAC is in place and functioning. No leak at this time. HEART: Regular rate and rhythm. Normal S1 and S2 without gallops, murmurs or clicks. LABORATORY/RADIOGRAPHIC EVALUATION The patient had a CBC today and her white count is stable at 9.2. Hemoglobin is slightly decreased at 9.9. ASSESSMENT 61-year-old female with multiple medical comorbidities status post wide excisional surgical debridement of probable suppurativa hidradenitis involving right axilla. Patient doing well today. PLAN Continue with current antibiotic therapy. Will change antibiotics pending deeper wound culture obtained yesterday. Will continue with negative wound pressure therapy. MTDD
--- NOTE | 2016-12-22 15:59 | Operative Note ---
DATE OF SERVICE 12/21/2016 SURGEON Toby Roca MD PREOPERATIVE DIAGNOSIS Chronic infection/abscesses involving right axilla. 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 PROCEDURE Right axillary exploration with excisional surgical debridement of skin and subcutaneous tissues and application of Instillation wound VAC. ANESTHESIA TIVA/local. BRIEF HISTORY/INDICATIONS Mrs. Shaikh is a 61-year-old female who has had a several-month history of a chronic infection involving her right axilla. I was requested to see the patient yesterday in consultation. She was found to have marked firmness, induration and tenderness involving the right axilla. There were two openings that were draining purulent material within the right axilla. It was recommended to the patient that she undergo exploration of this right axilla with appropriate excisional surgical treatment pending intraoperative findings. Patient presents today to undergo this procedure. NARRATIVE OF PROCEDURE After informed consent was obtained the patient was brought to the operative suite and placed on the table in a supine fashion. Right axilla was then prepped and draped in sterile fashion. Formal time-out was then completed. 0.25% Marcaine with epinephrine was injected circumferentially around the right axilla. Next, a 6-7 cm incision was then made about 2-3 cm beneath the openings that were currently present within the right axilla. Dissection was carried to the underlying subcutaneous tissues. The patient was found to have what appeared to be consistent with that of suppurativa hidradenitis. Tissue was found to be quite indurated, infected and contained multiple small loculated abscesses. A moderate amount of time was spent excising all chronically infected tissue. Dissection was carried out until one began to encounter normal-appearing adipose tissue. There were about 3 cm of skin that was chronically infected and contained several small openings. This chronically infected tissue was also excised. The skin as well as a portion of the subcutaneous tissues that was excised was sent for pathologic evaluation. Additionally, during the process of dissection several larger deeper abscess cavities were obtained. Additional anaerobic and aerobic cultures were obtained from this area. Once all chronically infected/inflamed tissue had been excised meticulous hemostasis was obtained within the wound. The wound was then irrigated. Wound vac was then applied. Black foam was placed within the wound followed by surrounding Steri-Drape. It should be noted that the area excised from the right axilla was 7 cm x 5 cm, or 35 cm2.The patient is in the process of awakening from her anesthetic and will be sent back to the recovery room once deemed in stable condition. FRANCY
[2016-12-22] MEDS: INSULIN GLARGINE 100unit/ml INJECTION SQ SCH (21:36)
[2016-12-22] MEDS: PRAVASTATIN 20 MG TABLET PO SCH (21:36)
[2016-12-22] MEDS: ZOLPIDEM 10 MG TABLET PO PRN (22:48)
[2016-12-23] MEDS: MORPHINE SULFATE 2 MG SYRINGE IVP PRN ×5 (03:55→21:41)
[2016-12-23] MEDS: MEROPENEM 1 GM in NS 100 ML IV SCH ×2 (06:25→18:20)
[2016-12-23] MEDS: OMEPRAZOLE 20 MG CAPSULE PO SCH (06:25)
[2016-12-23] MEDS: CITALOPRAM 20 MG TABLET PO SCH (09:48)
[2016-12-23] MEDS: MAGNESIUM OXIDE 400 MG TABLET PO SCH ×2 (09:49→21:44)
[2016-12-23] MEDS: AMLODIPINE 5 MG TABLET PO SCH (09:49)
[2016-12-23] MEDS: INSULIN ASPART 100unit/ml INJECTION SQ SCH ×3 (09:49→18:20)
[2016-12-23] MEDS: PredniSONE 5 MG TABLET PO SCH (09:49)
[2016-12-23] MEDS: TACROLIMUS 0.5 MG CAPSULE PO SCH ×2 (09:50→21:42)
[2016-12-23] MEDS: TACROLIMUS 1 MG CAPSULE PO SCH ×2 (09:50→21:44)
[2016-12-23] MEDS: PrednisoLONE 1% EYE DROPS 5ml OP SCH ×2 (09:50→21:42)
--- NOTE | 2016-12-23 11:02 | XRay Report ---
Indication: check picc placement PROCEDURE: XR chest post-procedure 1V: Encounter: Initial Comparison: December 20, 2016 Findings: Right PICC line tip projects over the right atrium. Lungs are grossly clear. No pneumothorax or effusion. Heart size and mediastinal contours are unchanged. Pulmonary vascularity is stable. Impression: Right PICC line tip projects over the right atrium. This could be retracted by approximately 2.5 cm to reside at the expected cavoatrial junction. There is a preliminary report by [facility]. .
[2016-12-23] MEDS ORDERED: ACETAMINOPHEN 500 MG TABLET PO PRN (14:20)
[2016-12-23] MEDS ORDERED: ALBUTEROL 2.5mg/3ml (0.083%) NEB AEROSOL PRN (14:22)
--- NOTE | 2016-12-23 14:27 | Progress Note ---
<Shantelle Castellon - Last Filed: 12/23/16 14:23> Subjective: Liudmila is seen today in follow up. She is reports some sharp pain at wound vac site that is intermittent. She also is a bit SOA today. She seems to have some upper airway congestion and wheezing, mild. She denies any GI upset. No new fever or chills. Chart is reviewed for collateral information. Objective Vital signs: Temperature 98.6 F 12/23/16 12:00 Pulse Rate 78 12/23/16 12:00 Respiratory Rate 18 12/23/16 12:00 Blood Pressure 135/63 12/23/16 12:00 Pulse Oximetry 94 12/23/16 12:00 Height/Weight/BMI: Height 1.5 m Weight 88.5 kg Body Mass Index 36.0 - Constitutional Present: mild distress, obese, cooperative Comments: Mildly SOA at rest. - Routine HEENT Exam Head: Present: normocephalic, atraumatic Eye: Absent: EOMI (Pt. is blind.) - Routine Respiratory Exam Present: dyspnea (Mild), decreased breath sounds, wheezes (Faint in bronchial areas. No cough. ) - Routine Cardiovascular Exam Present: RRR, S1, S2, murmur (Faint) - Routine Abdominal Exam Present: soft, non distended, non tender Comments: Morbidly obese. - Routine Extremities Exam Present: no edema, non tender - Routine Musculoskeletal Exam Musculoskeletal: Present: other (Wound vac right axillary area. Small tape burn at 2 o-clock position. PICC right arm that appears ok. ) - Routine Neurological Exam Present: alert, oriented X3, sensory deficit (Blind). Absent: vision grossly intact - Routine Psychiatric Exam Present: normal affect, normal thought process, cooperative Results - Labs CBC & Chem 7: 12/23/16 08:56 12/23/16 08:56 Microbiology Results: Microbiology 12/20/16 10:31 Peripheral/Iv Start Blood Culture - Preliminary No Growth After 3 Days 12/20/16 10:36 Peripheral/Iv Start Blood Culture - Preliminary No Growth After 3 Days 12/21/16 13:45 Axilla,Right Gram Stain - Final 12/21/16 13:45 Axilla,Right Abscess Culture - Final Staphylococcus aureus Group G Streptococcus Assessment and Plan (1) Wound, open axilla Current visit: Yes Status: Acute (2) Failure of outpatient treatment Current visit: Yes Status: Acute (3) Severe sepsis Current visit: Yes Status: Acute (4) Renal transplant recipient 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 Jarvis Rasheed his millinery department manager. He recommends continuing usual dose of Prograf and prednisone. He recommended holding mycophenolate for approximately one week due to her severe infection. This should be restarted when infection has improved. Current visit: Yes Status: Acute DVT Prophylaxis: SCD's GI Prophylaxis: other (PPI) Assessment and Plan: Impression Septic Shock- With Lactate of 4. Right axilla wound, failed outpatient treatment Diabetes Blindness Renal transplant Hypertension GERD Diabetic neuropathy Possible URI. Acute pain Plan: 12/23/16 She is slowly improving. Septic shock is resolved. Continue Meropenem, Vanco. Pharmacy following for Vanco adjustment. Cx. are reviewed. Wound vac right axillae. BG is trending down, continue current insulin. BP is well controlled. Continue Norvasc. Avoid excessive lowering. Continue supportive meds for renal transplant. Immunosuppressed- concern for URI. Check respiratory viral panel. Pain in right arm- IV meds ordered for pain. Will add BID low dose gabapentin. Add PRN tylenol. Recheck labs in AM for stability. - Time spent with patient 25 - 35 minutes Sepsis Assessment - Evaluation Sepsis screening result: No Definite Risk Hospital Course Summary Disclaimer: The visit summary below is not to be considered part of the above Progress Note. Hospital Course: 12/20/16 - initial admission Impression Septic Shock- With Lactate of 4. Right axilla wound, failed outpatient treatment Diabetes Blindness Renal transplant Hypertension GERD Diabetic neuropathy Plan We will admit patient to outpatient observation initially, however will change to inpatient status given her criteria of septic shock. She is admitted for right axilla abscess, failed outpatient treatment. Obtain the following laboratory studies on admission. CBC, CMP, CRP, venous lactate, pro calcitonin, MRSA swab, blood cultures 2. Venous lactate results are elevated at 4.0, indicating severe sepsis. Recheck Venous Lactate at 1430 as per sepsis protocol. Clinically, she appears hemodynamically stable as she is afebrile. Vital signs are normal on admission. Will continue to monitor these carefully every hour Initiate IV Fluids 30 ml/kg bolus for total of 2400ml. Will start IV vancomycin and meropenem and for coverage of staph aureus and Pseudomonas. qSOFA score on admission is 0/3 which indicated mortality related to sepsis. Consultation placed to Dr. Roca for ongoing wound evaluation and treatment. Monitor Accu-Cheks carefully. Will need to reconcile home medications and order accordingly. It is important patient continues on her anti-rejection medications. Morphine as needed for pain control and Zofran as needed for nausea SCDs to bilateral lower extremity for DVT prophylaxis Will discuss further orders and plan of care with attending, Dr. Lucas. At time of discharge medical care will return to primary care provider, Joann Tamayo APRN at [facility] 12/21/16-Plan Continue with meropenem and vancomycin for treatment of АНДРЕЙ and Pseudomonas wound. Blood cultures remain negative at this time. Leukocytosis has improved, white count today 8.6, and lactate normalized. Appreciate Dr. Roca's recommendations, planning for surgical evaluation and exploring of chronic wound in the right axilla for today. Need to consider further vascular access as patient does have a shunt in the left arm, and right axilla is location of wound. May need to consider central line patient requires long-term IV into buttock treatment. Need to monitor blood sugars and utilize Lantus and sliding scale insulin. Testing sugar this morning was elevated at 217. Patient is currently nothing by mouth for scheduled procedure later today. Continue on prednisone and Prograf. Given history of renal transplant. Mycophenolate on hold due to acute infection. Grinder Hardboard appears to be at baseline as per Dba Manager Dr Rasheed. Further orders and plan of care with attending, Dr. Lucas 12/23/16 14:33 She is slowly improving. Septic shock is resolved. Continue Meropenem, Vanco. Pharmacy following for Vanco adjustment. Cx. are reviewed. Wound vac right axillae. BG is trending down, continue current insulin. BP is well controlled. Continue Norvasc. Avoid excessive lowering. Continue supportive meds for renal transplant. Immunosuppressed- concern for URI. Check respiratory viral panel. Pain in right arm- IV meds ordered for pain. Will add BID low dose gabapentin. Add PRN tylenol. Recheck labs in AM for stability. <Shira Lucas - Last Filed: 12/23/16 15:49> Objective Vital signs: Temperature 98.6 F 12/23/16 12:00 Pulse Rate 78 12/23/16 12:00 Respiratory Rate 18 12/23/16 12:00 Blood Pressure 135/63 12/23/16 12:00 Pulse Oximetry 94 12/23/16 12:00 Height/Weight/BMI: Height 1.5 m Weight 88.5 kg Body Mass Index 36.0 Results - Labs CBC & Chem 7: 12/23/16 08:56 12/23/16 08:56 Microbiology Results: Microbiology 12/20/16 10:31 Peripheral/Iv Start Blood Culture - Preliminary No Growth After 3 Days 12/20/16 10:36 Peripheral/Iv Start Blood Culture - Preliminary No Growth After 3 Days 12/21/16 13:45 Axilla,Right Gram Stain - Final 12/21/16 13:45 Axilla,Right Abscess Culture - Final Staphylococcus aureus Group G Streptococcus Assessment and Plan (1) Wound, open axilla Current visit: Yes Status: Acute (2) Failure of outpatient treatment Current visit: Yes Status: Acute (3) Severe sepsis Current visit: Yes Status: Acute (4) Renal transplant recipient 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 Conley Wili his millinery department manager. He recommends continuing usual dose of Prograf and prednisone. He recommended holding mycophenolate for approximately one week due to her severe infection. This should be restarted when infection has improved. Current visit: Yes Status: Acute Assessment and Plan: 12/23/2016-I reviewed this chart, the patient history, and the INTERNET SALES MANAGER's/PA's documented findings as above. We discussed and formulated the assessment and plan as above with the additions below.-Dr. Lucas Patient continues to have cough and has some mild rhinorrhea. Her youngest daughter is here and she has a cold. It's possible that the patient has a viral upper respiratory infection as well. Patient states that she continues to have some discomfort in her right axilla but it is getting better. She has some chronic recurrent back pain that is unchanged. The pain medication is helping with her back pain as well. She states that he has have not helped in the past. She denies any shortness of breath. She denies any other complaints. Cultures were reviewed from surgery last week revealing АНДРЕЙ and G strep. Previous cultures done in the outpatient setting revealed 0SSA and Pseudomonas which was resistant to Zosyn and intermediate sensitivity to cefepime. It was sensitive to meropenem. We'll continue meropenem for now. DC vancomycin. Consult ID on Saturday or Saturday for further antibiotic recommendations. Check CBC, basic metabolic profile and C-reactive protein tomorrow. Hospital Course Summary Disclaimer: The visit summary below is not to be considered part of the above Progress Note.
[2016-12-23] MEDS: INSULIN GLARGINE 100unit/ml INJECTION SQ SCH (21:41)
[2016-12-23] MEDS: GABAPENTIN 100 MG CAPSULE PO SCH (21:44)
[2016-12-23] MEDS: ZOLPIDEM 10 MG TABLET PO PRN (21:44)
[2016-12-23] MEDS: PRAVASTATIN 20 MG TABLET PO SCH (21:44)
[2016-12-23] MEDS: SALINE FLUSH 10ml SYRINGE IVF PRN (21:45)
[2016-12-24] MEDS: MORPHINE SULFATE 2 MG SYRINGE IVP PRN ×5 (04:13→21:48)
[2016-12-24] MEDS: OMEPRAZOLE 20 MG CAPSULE PO SCH (06:26)
[2016-12-24] MEDS: MEROPENEM 1 GM in NS 100 ML IV SCH ×2 (06:26→17:59)
[2016-12-24] MEDS: PrednisoLONE 1% EYE DROPS 5ml OP SCH ×2 (08:56→21:51)
[2016-12-24] MEDS: MAGNESIUM OXIDE 400 MG TABLET PO SCH ×2 (08:57→21:50)
[2016-12-24] MEDS: PredniSONE 5 MG TABLET PO SCH (08:57)
[2016-12-24] MEDS: TACROLIMUS 0.5 MG CAPSULE PO SCH ×2 (08:57→21:52)
[2016-12-24] MEDS: TACROLIMUS 1 MG CAPSULE PO SCH ×2 (08:57→21:52)
[2016-12-24] MEDS: CITALOPRAM 20 MG TABLET PO SCH (08:57)
[2016-12-24] MEDS: AMLODIPINE 5 MG TABLET PO SCH (08:58)
[2016-12-24] MEDS: GABAPENTIN 100 MG CAPSULE PO SCH ×2 (08:58→21:51)
[2016-12-24] MEDS: SALINE FLUSH 10ml SYRINGE IVF PRN ×4 (09:12→21:49)
--- NOTE | 2016-12-24 09:37 | Progress Note ---
<Carina Mares V - Last Filed: 12/24/16 09:30> Subjective: Liudmila is seen this morning in follow up while resting in bed. She complains of mild discomfort to the right axilla at sight of her wound. She denies having shortness of breath, chest pain or GI complaints. BP mildly elevated 140-170 systolic. Nursing staff is taking BP on legs due to bilateral upper ext restrictions. Blood sugars remain well controlled. Fasting sugar this morning was 98. Objective Vital signs: Temperature 97.9 F 12/24/16 08:00 Pulse Rate 70 12/24/16 08:00 Respiratory Rate 16 12/24/16 08:00 Blood Pressure 157/71 H 12/24/16 08:00 Pulse Oximetry 92 12/24/16 08:00 Height/Weight/BMI: Height 1.5 m Weight 87.6 kg Body Mass Index 36.0 - Constitutional Present: no acute distress, well nourished, well developed - Routine HEENT Exam Eye: Present: EOMI ENT: Present: mucous membranes moist, dentition normal - Routine Respiratory Exam Present: CTA bilaterally. Absent: wheezes - Routine Cardiovascular Exam Present: RRR, S1, S2. Absent: murmur - Routine Abdominal Exam Present: soft, normoactive bowel sounds, non distended. Absent: tenderness - Routine Extremities Exam Present: pulses intact, normal capillary refill Comments: Wound vac to right axilla. - Routine Back/Spine/Pelvis Exam Back/Spine: Present: full ROM - Routine Skin Exam Present: intact, dry, warm - Routine Neurological Exam Present: alert, oriented X3, CN II-XII intact, moving all extremities - Routine Lymphatic Exam Lymphatic: Absent: adenopathy - Routine Psychiatric Exam Present: normal affect, normal thought process Results - Labs CBC & Chem 7: 12/24/16 04:00 12/24/16 04:00 Microbiology Results: Microbiology 12/20/16 10:31 Peripheral/Iv Start Blood Culture - Preliminary No Growth After 3 Days 12/20/16 10:36 Peripheral/Iv Start Blood Culture - Preliminary No Growth After 3 Days 12/21/16 13:45 Axilla,Right Gram Stain - Final 12/21/16 13:45 Axilla,Right Abscess Culture - Final Staphylococcus aureus Group G Streptococcus Assessment and Plan (1) Wound, open axilla Current visit: Yes Status: Acute (2) Failure of outpatient treatment Current visit: Yes Status: Acute (3) Severe sepsis Current visit: Yes Status: Acute (4) Renal transplant recipient 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 He recommends continuing usual dose of Prograf and prednisone. He recommended holding mycophenolate for approximately one week due to her severe infection. This should be restarted when infection has improved. Current visit: Yes Status: Acute Assessment and Plan: Septic Shock- With Lactate of 4. Right axilla wound, failed outpatient treatment Diabetes Blindness Renal transplant Hypertension GERD Diabetic neuropathy Possible URI. Acute pain 12/24/16- Plan Overall Liudmila is feeling good. Continue to monitor blood sugars, Overall well controlled on Lantus and Novolog. Monitor blood pressures. Overall have been elevated however nursing staff is taking pressures on lower extremities due to upper ext restrictions. Continue on Norvasc. Current culture revels АНДРЕЙ. Continue meropenem IV, Vanco discontinued yesterday. Consult placed to ID for later this week for treatment course guidance Prednisone and Prograf chronic antirejection meds due to renal transplant. Am labs reviewed, CRP trended down from 390 to 54. Will discuss further plan of care with attending, Dr Lucas Sepsis Assessment - Evaluation Sepsis screening result: No Definite Risk Hospital Course Summary Disclaimer: The visit summary below is not to be considered part of the above Progress Note. Hospital Course: 12/20/16 - initial admission Impression Septic Shock- With Lactate of 4. Right axilla wound, failed outpatient treatment Diabetes Blindness Renal transplant Hypertension GERD Diabetic neuropathy Plan We will admit patient to outpatient observation initially, however will change to inpatient status given her criteria of septic shock. She is admitted for right axilla abscess, failed outpatient treatment. Obtain the following laboratory studies on admission. CBC, CMP, CRP, venous lactate, pro calcitonin, MRSA swab, blood cultures 2. Venous lactate results are elevated at 4.0, indicating severe sepsis. Recheck Venous Lactate at 1430 as per sepsis protocol. Clinically, she appears hemodynamically stable as she is afebrile. Vital signs are normal on admission. Will continue to monitor these carefully every hour Initiate IV Fluids 30 ml/kg bolus for total of 2400ml. Will start IV vancomycin and meropenem and for coverage of staph aureus and Pseudomonas. qSOFA score on admission is 0/3 which indicated mortality related to sepsis. Consultation placed to Dr. Roca for ongoing wound evaluation and treatment. Monitor Accu-Cheks carefully. Will need to reconcile home medications and order accordingly. It is important patient continues on her anti-rejection medications. Morphine as needed for pain control and Zofran as needed for nausea SCDs to bilateral lower extremity for DVT prophylaxis Will discuss further orders and plan of care with attending, Dr. Lucas. At time of discharge medical care will return to primary care provider, Joann Tamayo APRN at [facility] 12/21/16-Plan Continue with meropenem and vancomycin for treatment of АНДРЕЙ and Pseudomonas wound. Blood cultures remain negative at this time. Leukocytosis has improved, white count today 8.6, and lactate normalized. Appreciate Dr. Roca's recommendations, planning for surgical evaluation and exploring of chronic wound in the right axilla for today. Need to consider further vascular access as patient does have a shunt in the left arm, and right axilla is location of wound. May need to consider central line patient requires long-term IV into buttock treatment. Need to monitor blood sugars and utilize Lantus and sliding scale insulin. Testing sugar this morning was elevated at 217. Patient is currently nothing by mouth for scheduled procedure later today. Continue on prednisone and Prograf. Given history of renal transplant. Mycophenolate on hold due to acute infection. 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 Further orders and plan of care with attending, Dr. Lucas 12/23/16 14:33 She is slowly improving. Septic shock is resolved. Continue Meropenem, Vanco. Pharmacy following for Vanco adjustment. Cx. are reviewed. Wound vac right axillae. BG is trending down, continue current insulin. BP is well controlled. Continue Norvasc. Avoid excessive lowering. Continue supportive meds for renal transplant. Immunosuppressed- concern for URI. Check respiratory viral panel. Pain in right arm- IV meds ordered for pain. Will add BID low dose gabapentin. Add PRN tylenol. Recheck labs in AM for stability. 12/24/16- Plan Overall Liudmila is feeling good. Continue to monitor blood sugars, Overall well controlled on Lantus and Novolog. Monitor blood pressures. Overall have been elevated however nursing staff is taking pressures on lower extremities due to upper ext restrictions. Continue on Norvasc. Current culture revels АНДРЕЙ. Continue meropenem IV, Vanco discontinued yesterday. Consult placed to ID for later this week for treatment course guidance Prednisone and Prograf chronic antirejection meds due to renal transplant. Am labs reviewed, CRP trended down from 390 to 54. Will discuss further plan of care with attending, Dr Lucas <LanceShira Pickett - Last Filed: 12/24/16 11:58> Objective Vital signs: Temperature 97.9 F 12/24/16 08:00 Pulse Rate 70 12/24/16 08:00 Respiratory Rate 16 12/24/16 08:00 Blood Pressure 157/71 H 12/24/16 08:00 Pulse Oximetry 92 12/24/16 08:00 Height/Weight/BMI: Height 1.5 m Weight 87.6 kg Body Mass Index 36.0 Results - Labs CBC & Chem 7: 12/24/16 04:00 12/24/16 04:00 Microbiology Results: Microbiology 12/20/16 10:31 Peripheral/Iv Start Blood Culture - Preliminary No Growth After 4 Days 12/20/16 10:36 Peripheral/Iv Start Blood Culture - Preliminary No Growth After 4 Days 12/21/16 13:45 Axilla,Right Gram Stain - Final 12/21/16 13:45 Axilla,Right Abscess Culture - Final Staphylococcus aureus Group G Streptococcus Assessment and Plan (1) Wound, open axilla Current visit: Yes Status: Acute (2) Failure of outpatient treatment Current visit: Yes Status: Acute (3) Severe sepsis Current visit: Yes Status: Acute (4) Renal transplant recipient 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 He recommends continuing usual dose of Prograf and prednisone. He recommended holding mycophenolate for approximately one week due to her severe infection. This should be restarted when infection has improved. Current visit: Yes Status: Acute Assessment and Plan: 12/24/2016-I reviewed this chart, the patient history, and the LAW OFFICE RECEPTIONIST's/PA's documented findings as above. We discussed and formulated the assessment and plan as above with the additions below.-Dr. Lucas Overall, Liudmila is doing well. C-reactive protein is down significantly. She continues to have some occasional pain in the axilla and low back. She received some pain medication earlier today and her pain is resolved. She has not had a good bowel movement since admission. We'll start MiraLAX and give 2 doses today and then 1 daily starting tomorrow. She has no other complaints. We'll continue with meropenem for now and discuss with ID. We'll see how wound looks when wound VAC is changed in the next 1-2 days. Continue to monitor blood sugars closely. Hold insulin with meals if the patient is not eating. Can probably restart mycophenolate tomorrow if she is continuing to do well from an infectious disease standpoint. Hospital Course Summary Disclaimer: The visit summary below is not to be considered part of the above Progress Note.
--- NOTE | 2016-12-24 10:47 | Progress Note ---
DATE OF SERVICE 12/24/2016 FINDINGS Mrs. Shaikh is without complaints today. I did see the patient yesterday but the dictation system was nonfunctioning yesterday morning. Patient was without complaints yesterday. She remains to be without complaints today. EXAM VITAL SIGNS: Afebrile, normotensive. CHEST: Attention was focused to the right axilla. Wound VAC is in place and functioning. No significant periwound erythema. LABORATORY/RADIOGRAPHIC EVALUATION I reviewed deeper cultures from December 21. The patient remains to have oxacillin-sensitive Staph. aureus as well as group G strep. 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 Patient immunosuppressed following renal transplantation. Status post wide local excisional surgical debridement. PLAN Continue with intravenous antibiotics. Will plan on changing wound VAC tomorrow. May obtain Infectious Disease consult to facilitate outpatient antibiotic management. FRANCY
[2016-12-24] MEDS: INSULIN ASPART 100unit/ml INJECTION SQ SCH ×3 (10:51→17:15)
[2016-12-24] MEDS ORDERED: POLYETHYL. GLYCOL 3350 BOTTLE 238 GM PO SCH (12:00)
[2016-12-24] MEDS ORDERED: POLYETHYL GLYCOL 3350 17gm PACKET PO ONE ×2 (12:18→17:00)
[2016-12-24] MEDS: INSULIN GLARGINE 100unit/ml INJECTION SQ SCH (21:47)
[2016-12-24] MEDS: PRAVASTATIN 20 MG TABLET PO SCH (21:51)
[2016-12-24] MEDS: ZOLPIDEM 10 MG TABLET PO PRN (22:24)
[2016-12-25] MEDS ORDERED: NS FLUSH BAG 500ml IV PRN (02:24)
[2016-12-25] MEDS: MORPHINE SULFATE 2 MG SYRINGE IVP PRN ×4 (02:47→20:12)
[2016-12-25] MEDS: OMEPRAZOLE 20 MG CAPSULE PO SCH (06:40)
[2016-12-25] MEDS: MEROPENEM 1 GM in NS 100 ML IV SCH (06:40)
--- NOTE | 2016-12-25 08:48 | Progress Note ---
<Carina Mares V - Last Filed: 12/25/16 08:40> Subjective: Liudmila is seen today in follow up. She is awake and reports she is feeling good this morning other than mild right axilla pain. Wound Vac is intact without difficulty. She denies having any shortness of breath, chest pain, or GI concerns. No nausea. Appetite has been good. BP 172/64 this morning. Objective Vital signs: Temperature 97.9 F 12/25/16 07:20 Pulse Rate 68 12/25/16 07:20 Respiratory Rate 16 12/25/16 07:20 Blood Pressure 172/64 H 12/25/16 07:20 Pulse Oximetry 94 12/25/16 07:20 Height/Weight/BMI: Height 1.5 m Weight 85.6 kg Body Mass Index 36.0 - Constitutional Present: no acute distress, well nourished, well developed - Routine HEENT Exam ENT: Present: mucous membranes moist, dentition normal - Routine Respiratory Exam Present: CTA bilaterally. Absent: wheezes - Routine Cardiovascular Exam Present: RRR, S1, S2. Absent: murmur - Routine Abdominal Exam Present: soft, normoactive bowel sounds, non distended. Absent: tenderness - Routine Extremities Exam Present: normal capillary refill - Routine Skin Exam Present: intact, dry, warm - Routine Neurological Exam Present: alert, oriented X3, CN II-XII intact, moving all extremities - Routine Lymphatic Exam Lymphatic: Absent: adenopathy - Routine Psychiatric Exam Present: normal affect, normal thought process Results - Labs CBC & Chem 7: 12/25/16 03:52 12/25/16 03:52 Microbiology Results: Microbiology 12/20/16 10:31 Peripheral/Iv Start Blood Culture - Preliminary No Growth After 4 Days 12/20/16 10:36 Peripheral/Iv Start Blood Culture - Preliminary No Growth After 4 Days 12/21/16 13:45 Axilla,Right Gram Stain - Final 12/21/16 13:45 Axilla,Right Abscess Culture - Final Staphylococcus aureus Group G Streptococcus Assessment and Plan (1) Wound, open axilla Current visit: Yes Status: Acute (2) Failure of outpatient treatment Current visit: Yes Status: Acute (3) Severe sepsis Current visit: Yes Status: Acute (4) Renal transplant recipient 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 He recommends continuing usual dose of Prograf and prednisone. He recommended holding mycophenolate for approximately one week due to her severe infection. This should be restarted when infection has improved. Current visit: Yes Status: Acute Assessment and Plan: Septic Shock- With Lactate of 4- Resolved Right axilla wound, failed outpatient treatment Diabetes Blindness Renal transplant Hypertension GERD Diabetic neuropathy 12/25/16- Plan Overall doing good. Wound culture is positive for АНДРЕЙ. Continue on meropenem IV. Plan to discuss with infectious disease for long-term recommendations. Clinically have wound VAC changed in the next 1-2 days Blood sugars continue to be well controlled. Novolog insulin with meals, Lantus at HS Continue on prednisone and Prograf anti-rejection medications due to renal transplant. Will contact Dr Jarvis Rasheed (Information Tech) today to discuss resuming mycophenolate as well as target blood pressure goals Continue to follow routine labs Sepsis Assessment - Evaluation Sepsis screening result: No Definite Risk Hospital Course Summary Disclaimer: The visit summary below is not to be considered part of the above Progress Note. Hospital Course: 12/20/16 - initial admission Impression Septic Shock- With Lactate of 4. Right axilla wound, failed outpatient treatment Diabetes Blindness Renal transplant Hypertension GERD Diabetic neuropathy Plan We will admit patient to outpatient observation initially, however will change to inpatient status given her criteria of septic shock. She is admitted for right axilla abscess, failed outpatient treatment. Obtain the following laboratory studies on admission. CBC, CMP, CRP, venous lactate, pro calcitonin, MRSA swab, blood cultures 2. Venous lactate results are elevated at 4.0, indicating severe sepsis. Recheck Venous Lactate at 1430 as per sepsis protocol. Clinically, she appears hemodynamically stable as she is afebrile. Vital signs are normal on admission. Will continue to monitor these carefully every hour Initiate IV Fluids 30 ml/kg bolus for total of 2400ml. Will start IV vancomycin and meropenem and for coverage of staph aureus and Pseudomonas. qSOFA score on admission is 0/3 which indicated mortality related to sepsis. Consultation placed to Dr. Roca for ongoing wound evaluation and treatment. Monitor Accu-Cheks carefully. Will need to reconcile home medications and order accordingly. It is important patient continues on her anti-rejection medications. Morphine as needed for pain control and Zofran as needed for nausea SCDs to bilateral lower extremity for DVT prophylaxis Will discuss further orders and plan of care with attending, Dr. Lucas. At time of discharge medical care will return to primary care provider, Joann Tamayo APRN at [facility] 12/21/16-Plan Continue with meropenem and vancomycin for treatment of АНДРЕЙ and Pseudomonas wound. Blood cultures remain negative at this time. Leukocytosis has improved, white count today 8.6, and lactate normalized. Appreciate Dr. Roca's recommendations, planning for surgical evaluation and exploring of chronic wound in the right axilla for today. Need to consider further vascular access as patient does have a shunt in the left arm, and right axilla is location of wound. May need to consider central line patient requires long-term IV into buttock treatment. Need to monitor blood sugars and utilize Lantus and sliding scale insulin. Testing sugar this morning was elevated at 217. Patient is currently nothing by mouth for scheduled procedure later today. Continue on prednisone and Prograf. Given history of renal transplant. Mycophenolate on hold due to acute infection. 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 Further orders and plan of care with attending, Dr. Lucas 12/23/16 14:33 She is slowly improving. Septic shock is resolved. Continue Meropenem, Vanco. Pharmacy following for Vanco adjustment. Cx. are reviewed. Wound vac right axillae. BG is trending down, continue current insulin. BP is well controlled. Continue Norvasc. Avoid excessive lowering. Continue supportive meds for renal transplant. Immunosuppressed- concern for URI. Check respiratory viral panel. Pain in right arm- IV meds ordered for pain. Will add BID low dose gabapentin. Add PRN tylenol. Recheck labs in AM for stability. 12/24/16- Plan Overall Liudmila is feeling good. Continue to monitor blood sugars, Overall well controlled on Lantus and Novolog. Monitor blood pressures. Overall have been elevated however nursing staff is taking pressures on lower extremities due to upper ext restrictions. Continue on Norvasc. Current culture revels АНДРЕЙ. Continue meropenem IV, Vanco discontinued yesterday. Consult placed to ID for later this week for treatment course guidance Prednisone and Prograf chronic antirejection meds due to renal transplant. Am labs reviewed, CRP trended down from 390 to 54. Will discuss further plan of care with attending, Dr Lucas 12/25/16- Plan Overall doing good. Wound culture is positive for АНДРЕЙ. Continue on meropenem IV. Plan to discuss with infectious disease for long-term recommendations. Clinically have wound VAC changed in the next 1-2 days Blood sugars continue to be well controlled. Novolog insulin with meals, Lantus at HS Continue on prednisone and Prograf anti-rejection medications due to renal transplant. Will contact Dr Jarvis Rasheed (Information Tech) today to discuss resuming mycophenolate as well as target blood pressure goals Continue to follow routine labs <Luz Marina Gray - Last Filed: 12/25/16 11:14> Objective Vital signs: Temperature 97.9 F 12/25/16 07:20 Pulse Rate 68 12/25/16 07:20 Respiratory Rate 16 12/25/16 07:20 Blood Pressure 172/64 H 12/25/16 07:20 Pulse Oximetry 94 12/25/16 07:20 Height/Weight/BMI: Height 4 ft 11 in Weight 188 lb 11.451 oz Body Mass Index 36.0 Results - Labs CBC & Chem 7: 12/25/16 03:52 12/25/16 03:52 Microbiology Results: Microbiology 12/20/16 10:31 Peripheral/Iv Start Blood Culture - Final No Growth After 5 Days 12/20/16 10:36 Peripheral/Iv Start Blood Culture - Final No Growth After 5 Days 12/21/16 13:45 Axilla,Right Gram Stain - Final 12/21/16 13:45 Axilla,Right Abscess Culture - Final Staphylococcus aureus Group G Streptococcus Assessment and Plan (1) Wound, open axilla Current visit: Yes Status: Acute (2) Failure of outpatient treatment Current visit: Yes Status: Acute (3) Severe sepsis Current visit: Yes Status: Acute (4) Renal transplant recipient 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 He recommends continuing usual dose of Prograf and prednisone. He recommended holding mycophenolate for approximately one week due to her severe infection. This should be restarted when infection has improved. Current visit: Yes Status: Acute Assessment and Plan: I have independently evaluated and examined this patient. I reviewed the chart, the patient's history, and the CLIENT SERVICE MANAGER/PA's documented findings as above. We discussed and formulated the assessment and plan as above with additions as below. The patient was seen 9:45 at with Belén from wound careat bedside. The patient reports doing well and slept well during the night. Denies fevers, chills, sweats. She has minimal pain with manipulation of the wound site. In general, the patient is alert and oriented 3, cooperative with exam, and in no respiratory distress. HEENT: Head is atraumatic, normocephalic, no conjunctival petechiae, no oral thrush, mucous membranes are moist and pink. Lungs: Clear to auscultation without wheezes, crackles or rhonchi CV: Regular rate and rhythm without murmur Abdomen: Soft, nontender, bowel sounds are present, there is no guarding no rebound. Extremities: No clubbing, no cyanosis, no edema. Left upper arm fistula with good thrill Left axilla with beefy red granulation tissue, no drainage. no odor, no necrosis Skin: Warm and dry no sign of rash Neuro: Patient is alert IV access: PICC right upper extremity Surgical specimen on 12/21/2016 was collected on a swab. The Gram stain shows few gram-positive cocci in clusters, neutrophils were seen. The culture grew a moderate amount of methicillin susceptible staph aureus as well as an moderate growth of group G Streptococcus. Susceptibilities were reviewed the staph aureus was resistant to ciprofloxacin and levofloxacin, had an MARCO to oxacillin of 0.25 In calling the microbiology, no fungal or AFB cultures were obtained at the time of surgery. The swab was located at the reference lab, unfortunately they are unable to do any further testing on that swab as they have not done quality assurance qa lab technician on that type of swab. Microbiology is checking to see if the swab can be obtained and sent off for AFB and fungal testing at another laboratory. In the meantime, Belén, from wound care, was able to obtain a tissue specimen from the axilla today. That will be sent for fungal and AFB cultures. In addition we' ll check a urine histoplasma antigen, and a serum QuantiFERON. Discussed with Dr. Roca. He reported he did obtain tissue in the OR, it appears it was placed directly in formalin. The pathology is pending at this time, discussed with pathology and requested AFB and fungal stains on the path specimen. Based on susceptibilities, will change to oral cephelexin 500 mg po qid- discussed dosing with pharmacy. Awaiting a return call from Dr. Rasheed regarding resumption of mycophenolate 360 mg po bid and management of BP-172/64. Hospital Course Summary Disclaimer: The visit summary below is not to be considered part of the above Progress Note.
[2016-12-25] MEDS: INSULIN ASPART 100unit/ml INJECTION SQ SCH ×3 (08:57→17:47)
[2016-12-25] MEDS: CITALOPRAM 20 MG TABLET PO SCH (08:58)
[2016-12-25] MEDS: MAGNESIUM OXIDE 400 MG TABLET PO SCH ×2 (08:58→20:36)
[2016-12-25] MEDS: PredniSONE 5 MG TABLET PO SCH (08:58)
[2016-12-25] MEDS: PrednisoLONE 1% EYE DROPS 5ml OP SCH ×2 (08:59→20:38)
[2016-12-25] MEDS: AMLODIPINE 5 MG TABLET PO SCH (08:59)
[2016-12-25] MEDS: TACROLIMUS 0.5 MG CAPSULE PO SCH ×2 (08:59→20:34)
[2016-12-25] MEDS: GABAPENTIN 100 MG CAPSULE PO SCH ×2 (08:59→20:35)
[2016-12-25] MEDS: TACROLIMUS 1 MG CAPSULE PO SCH ×2 (08:59→20:35)
[2016-12-25] MEDS: POLYETHYL GLYCOL 3350 17gm PACKET PO SCH (09:01)
--- NOTE | 2016-12-25 11:23 | Wound Care Progress Note ---
Wound Management - Patient Status Premedicated Prior to Dressing Change: Yes - Wound Right Chest Wound Type: Surgical Incision (Right axila post I & D) Wound Present on Admission?: Yes Length: 9.5 Width: 2.5 Depth: 3.5 Wound Bed Appearance: Beefy Red Dorcas Wound Appearance: Combes Tunneling: No Undermining: No Drainage Description: Serosanguineous Drainage Amount: Moderate Drainage Odor: No Odor Dressing Status: Changed Irrigant Solution: Saline Irrigant Packing Type: Woundvac Sponge Number of Packing Pieces Removed?: 2 Number of Packing Pieces Placed?: 1 Primary Dressing: Foam Dressing Secondary Dressing: Adhesive Dressing, Trac Pad Dressing Change Date: 12/25/16 Dressing Change Time: 10:00 Dressing Change Patient Tolerance: Tolerated Well Microbiology: Microbiology 12/20/16 10:31 Peripheral/Iv Start Blood Culture - Final No Growth After 5 Days 12/20/16 10:36 Peripheral/Iv Start Blood Culture - Final No Growth After 5 Days
[2016-12-25] MEDS: AMLODIPINE 10 MG TABLET PO SCH (12:04)
[2016-12-25] MEDS: MYCOPHENOLATE SODIUM 180 MG PO SCH ×2 (12:17→20:35)
--- NOTE | 2016-12-25 14:56 | Progress Note ---
DATE 12/25/2016 FINDINGS Mrs. Shaikh today was without complaints. She states that she did have some discomfort during the wound VAC removal. VITALS: Afebrile. Normotensive. Current vitals include temperature 97.9, pulse 68, respirations 16, blood pressure 172/64. CHEST: Clear to auscultation. Attention was focused to the right axilla. There has been marked improvement in the appearance of the wound. There is good granulation tissue now forming throughout the entire wound bed. I do not see any evidence for residual infected tissue. HEART: Regular rate and rhythm. Normal S1 and S2 without gallops, murmurs or clicks. ASSESSMENT A 61-year-old female with multiple medical comorbidities, status post excisional surgical debridement of probable hydradenitis suppurativa involving right axilla with application of wound VAC. Patient doing quite well. PLAN Will discuss with the hospitalist. It would be my thought that the patient could be discharged to home on outpatient antibiotics perhaps and continuation of negative wound pressure therapy on an outpatient basis through our wound center. I am pleased with the patient's progress. FRANCY
[2016-12-25] MEDS ORDERED: POLYETHYL GLYCOL 3350 17gm PACKET PO ONE (17:00)
[2016-12-25] MEDS: SALINE FLUSH 10ml SYRINGE IVF PRN (20:11)
[2016-12-25] MEDS: PRAVASTATIN 20 MG TABLET PO SCH (20:35)
[2016-12-25] MEDS: ZOLPIDEM 10 MG TABLET PO PRN (20:38)
[2016-12-25] MEDS: INSULIN GLARGINE 100unit/ml INJECTION SQ SCH (21:48)
[2016-12-26] MEDS: MORPHINE SULFATE 2 MG SYRINGE IVP PRN ×4 (03:06→19:31)
[2016-12-26] MEDS: SALINE FLUSH 10ml SYRINGE IVF PRN ×3 (03:06→19:31)
[2016-12-26] MEDS: MYCOPHENOLATE SODIUM 180 MG PO SCH ×2 (06:19→20:42)
[2016-12-26] MEDS: OMEPRAZOLE 20 MG CAPSULE PO SCH (06:20)
[2016-12-26] MEDS: INSULIN ASPART 100unit/ml INJECTION SQ PRN ×3 (06:21→20:44)
[2016-12-26] MEDS ORDERED: NS 1,000 ML IV PRN (08:15)
[2016-12-26] MEDS: AMLODIPINE 10 MG TABLET PO SCH (08:46)
[2016-12-26] MEDS: TACROLIMUS 1 MG CAPSULE PO SCH ×2 (08:46→20:42)
[2016-12-26] MEDS: TACROLIMUS 0.5 MG CAPSULE PO SCH ×2 (08:46→20:41)
[2016-12-26] MEDS: MAGNESIUM OXIDE 400 MG TABLET PO SCH ×2 (08:46→20:42)
[2016-12-26] MEDS: GABAPENTIN 100 MG CAPSULE PO SCH ×2 (08:46→20:42)
[2016-12-26] MEDS: CITALOPRAM 20 MG TABLET PO SCH (08:46)
[2016-12-26] MEDS: INSULIN ASPART 100unit/ml INJECTION SQ SCH ×3 (08:47→18:45)
[2016-12-26] MEDS: POLYETHYL GLYCOL 3350 17gm PACKET PO SCH (08:47)
[2016-12-26] MEDS: PredniSONE 5 MG TABLET PO SCH (08:47)
[2016-12-26] MEDS: PrednisoLONE 1% EYE DROPS 5ml OP SCH ×2 (08:48→20:46)
--- NOTE | 2016-12-26 12:21 | Infectious Disease Consult ---
Infectious Disease Consult Date of Consultation: 12/26/16 Requesting Physician: Luz Marina Gray Reason for Consultation: antibiotic recs History of Present Illness: Ms. Shaikh is a 61 y/o woman with a h/o renal transplant in 2014 who reports that she's had an abscess in her R axilla since September. She was visiting her daughter in [place] in September, and so she didn't seek any medical attention. She sought medical attention for this in October. She saw Dr KATIE Laboy at [facility] who initially drained this on 10/22. He packed the wound using rubber bands. She reports that she currently has her 4th one of these that "popped up" since October. She thinks that after drainage, it seems to improve some, but another one "pops up" in a slightly different location. All of these have been in the R axilla and she denies every having anything like this in other areas. She was given Bactrim initially. Per report, she had a wound culture from 11/27 that grew АНДРЕЙ and Pseudomonas aeruginosa. She reports that she had fever to 102 last week. She also developed vomiting and was unable to keep anything down, which prompted her admission here on 12/20. Her antibiotics were changed to cipro and clindamycin a few days prior to her admission here. On admission, she had elevated lactate, and met criteria for severe sepsis. She had leukocytosis but no fever. Dr. Roca took her to surgery on 12/21 and excised multiloculated abscesses R axilla that he felt appeared to be hydradenitis suppurative. Wound culture grew АНДРЕЙ and group G Strep. The gram stain showed few GPC in clusters. Path showed marked acute necrotizing inflammation. GMS and AFB stains on the tissue are pending. She was initially started on merrem and Vancomycin (I believe the pseudomonas was resistant to Zosyn). Her antibiotics have been de-escalated to cephalexin yesterday. Histo antigen and TB quantiferon gold are pending. She reports that she has "always tested positive" on a TB skin test, but that her CXR has been negative, and she was told that nothing further needed to be done. She denies that she has been treated for TB. Medications Home Medications Medication Instructions Recorded Confirmed Type Magnesium 250 mg PO BID #0 09/25/15 12/20/16 History Omeprazole Magnesium [Prilosec Otc] 20 mg PO DAILY #0 09/25/15 12/20/16 History Tacrolimus [Prograf] 1 mg PO BID #0 09/25/15 12/20/16 History predniSONE [Prednisone] 5 mg PO DAILY #0 09/25/15 12/20/16 History Tacrolimus [Prograf] 0.5 mg PO BID #0 09/26/15 12/20/16 History Promethazine HCl 12.5 mg PO DAILY #0 02/03/16 12/20/16 History prednisoLONE acetate [Omnipred] 1 drop OP BID #0 02/06/16 12/20/16 History Amlodipine Besylate 5 mg PO DAILY #0 03/23/16 12/20/16 History Cholecalciferol (Vitamin D3) 1 tab PO DAILY 10/20/16 12/20/16 History [Vitamin D3] Citalopram [Celexa] 20 mg PO DAILY 10/20/16 12/20/16 History Insulin Aspart [Novolog Flexpen] 10 unit SQ WB 10/20/16 12/20/16 History Insulin Aspart [Novolog Flexpen] 14 unit SQ WL 10/20/16 12/20/16 History Insulin Aspart [Novolog Flexpen] 15 unit SQ WS 10/20/16 12/20/16 History Pravastatin [Pravachol] 20 mg PO HS 10/20/16 12/20/16 History Insulin Glargine [Lantus] 20 unit SQ HS 12/20/16 12/20/16 History Mycophenolate Sodium [Myfortic] 360 mg PO BID 12/20/16 12/20/16 History Zolpidem Tartrate [Ambien] 10 mg PO HS PRN 12/20/16 12/20/16 History Allergies Allergy/AdvReac Type Severity Reaction Status Date / Time codeine Allergy Intermediate Verified 09/25/16 10:31 hydrocodone bit AdvReac Intermediate NAUSA Uncoded 09/25/16 10:31 VOMITTING oxycodone HCl AdvReac Intermediate NAUSEA Uncoded 09/25/16 10:31 VOMITTING PFSH Patient Stated Medical History Hearing Loss Yes Macular Degeneration Yes: blind Heart Murmur Yes Hypertension Yes Sleep Apnea Yes: pressumptive Other Respiratory Yes: history of tobacco abuse Diabetes Mellitus Type 2 Yes Gastroesophageal Reflux Yes: controlled Disease Hx Kidney Stones Yes Hx Renal Disease No Hx Urinary Tract Infection Yes Anemia Yes Osteoarthritis Yes Other Yes: blind Depression Yes Clinic Medical History (Last Reviewed 09/25/16 @ 10:39 by Rk Salamanca MD) Uncontrolled type 2 diabetes mellitus (Chronic Medical ~1991) Poor control at all times of day. Diabetic peripheral neuropathy associated with type 2 diabetes mellitus ( Chronic Medical) Pains are getting worse. Should try alpha lipoic acid. 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 Surgical History: Hysterectomy-1984. Bilateral eye laser-2010, 2011. Left arm fistula-2012. Nephrectomy, and renal transplant 07/2014. Left knee surgery 2010. Multiple I&Ds R axilla November 2016 Family History: Family History (Last Reviewed 09/25/16 @ 10:39 by Rk Salamanca MD) Maternal Grandmother Diabetes High blood pressure Stroke Mother Liver cancer Maternal Aunt Diabetes High blood pressure - Social History Smoking status: Former smoker Alcohol intake frequency: does not drink Current residence: Apartment/Private Home Review of Systems - Constitutional Constitutional: Present: chills, fever(s) - EENMT Eyes: Present: loss of vision (chronic). Absent: change in vision - Cardiovascular Cardiovascular: Absent: chest pain - Respiratory Respiratory: Absent: dyspnea - Gastrointestinal Gastrointestinal: Present: nausea (now resolved), vomiting (now resolved). Absent: abdominal pain, change in bowel habits, diarrhea - Genitourinary Genitourinary: Absent: dysuria - Musculoskeletal Musculoskeletal: Absent: arthralgias - Integumentary/Breasts Integumentary: Absent: rash - Neurological Neurological: Absent: headache(s) - Endocrine Endocrine Comments: DM followed by Dr. Salamanca - Hematologic/Lymphatic Hematologic/Lymphatic Comments: abscess R axilla Exam Vital Signs: Temperature 97.5 F 12/26/16 11:47 Pulse Rate 64 12/26/16 11:47 Respiratory Rate 16 12/26/16 11:47 Blood Pressure 152/69 H 12/26/16 11:47 Pulse Oximetry 95 12/26/16 11:47 Height/Weight/BMI: Height 1.5 m Weight 85 kg Body Mass Index 36.0 - Constitutional Present: no acute distress - Routine HEENT Exam Head: Present: normocephalic, atraumatic Eye: Present: EOMI (cloudy corneas) ENT: Present: mucous membranes moist Comments: missing lower incisors - Routine Neck Exam Present: supple - Routine Chest/Breast/Axilla Exam Comments: wound R axilla with wound VAC in place, no surrounding erythema - Routine Respiratory Exam Present: CTA bilaterally - Routine Cardiovascular Exam Present: RRR - Routine Abdominal Exam Present: soft, normoactive bowel sounds, non distended, non tender - Routine Extremities Exam Present: AV fistula (LUE). Absent: edema - Routine Skin Exam Present: intact. Absent: rash - Routine Neurological Exam Present: alert, oriented X3, CN II-XII intact. Absent: motor deficit - Routine Psychiatric Exam Present: normal affect, normal thought process Results - Labs CBC & Chem 7: 12/25/16 03:52 12/25/16 03:52 Microbiology Results: Microbiology 12/20/16 10:31 Peripheral/Iv Start Blood Culture - Final No Growth After 5 Days 12/20/16 10:36 Peripheral/Iv Start Blood Culture - Final No Growth After 5 Days 12/21/16 13:45 Axilla,Right Gram Stain - Final 12/21/16 13:45 Axilla,Right Abscess Culture - Final Staphylococcus aureus Group G Streptococcus - Impressions CT chest on 12/20 showed R apical area of scarring, and abscess vs packing in R axilla Impression: Severe sepsis, presumed source R axillary abscess R axillary abscess vs hydradenitis suppurativa, s/p I&D/excision 12/21, cultures with АНДРЕЙ and Group G Strep S/p renal transplant 2014 H/o prior positive PPDs, without treatment (per patient) Blindness DM II, IR Recommendation: Recommend continuing the cephalexin 500mg po QID for at least 2 weeks. I will follow up with this patient in the wound clinic. Wound VAC per Dr. Roca. Stains for fungal and AFB from the path are still pending. Histo antigen and TB quantiferon are pending. The patient gives me a history of what sounds like latent TB although she doesn't think it was treated. This might need to be clarified by checking with the Health Department. Sepsis Assessment - Evaluation Sepsis screening result: No Definite Risk
--- NOTE | 2016-12-26 15:18 | Progress Note ---
<Carina Mares V - Last Filed: 12/26/16 15:07> Subjective: Liudmila is seen this afternoon while resting in bed. Fingerstick BGM currently is slightly low at 57. Patient also had a low blood sugar last evening of 65. She states he is not symptomatic during these episodes, however, she concerned that she is having lows. Reports pain in the right exam is mild currently. She otherwise feels good, denying any shortness of breath or abdominal discomfort. Denies nausea and reports appetite has been good. She is voiding without difficulty and bowels are moving regularly. Objective Vital signs: Temperature 97.5 F 12/26/16 11:47 Pulse Rate 64 12/26/16 11:47 Respiratory Rate 16 12/26/16 11:47 Blood Pressure 152/69 H 12/26/16 11:47 Pulse Oximetry 95 12/26/16 11:47 Height/Weight/BMI: Height 1.5 m Weight 85 kg Body Mass Index 36.0 - Constitutional Present: no acute distress, well nourished, well developed - Routine HEENT Exam Eye: Present: EOMI ENT: Present: mucous membranes moist, dentition normal - Routine Respiratory Exam Present: CTA bilaterally. Absent: wheezes - Routine Cardiovascular Exam Present: RRR, S1, S2. Absent: murmur - Routine Abdominal Exam Present: soft, normoactive bowel sounds, non distended. Absent: tenderness - Routine Extremities Exam Present: normal capillary refill - Routine Skin Exam Present: dry, warm Comments: Wound VAC to right axilla - Routine Neurological Exam Present: alert, oriented X3, CN II-XII intact - Routine Lymphatic Exam Lymphatic: Absent: adenopathy - Routine Psychiatric Exam Present: normal affect Results - Labs CBC & Chem 7: 12/25/16 03:52 12/25/16 03:52 Microbiology Results: Microbiology 12/20/16 10:31 Peripheral/Iv Start Blood Culture - Final No Growth After 5 Days 12/20/16 10:36 Peripheral/Iv Start Blood Culture - Final No Growth After 5 Days 12/21/16 13:45 Axilla,Right Gram Stain - Final 12/21/16 13:45 Axilla,Right Abscess Culture - Final Staphylococcus aureus Group G Streptococcus Assessment and Plan (1) Wound, open axilla Current visit: Yes Status: Acute (2) Failure of outpatient treatment Current visit: Yes Status: Acute (3) Severe sepsis Current visit: Yes Status: Acute (4) Renal transplant recipient 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 Conley Wili his show card letterer. He recommends continuing usual dose of Prograf and prednisone. He recommended holding mycophenolate for approximately one week due to her severe infection. This should be restarted when infection has improved. Current visit: Yes Status: Acute Assessment and Plan: Impression Septic Shock- With Lactate of 4- Improved Right axilla wound, failed outpatient treatment Diabetes Blindness Renal transplant Hypertension GERD Diabetic neuropathy 12/26/16- Plan Overall blood sugars remained quite labile as patient has had some low sugars in the 50s and 60s. However, fasting sugar this morning was elevated at 324. Patient states she normally does not have any hypoglycemic episodes at home. Will place consultation to her observer gravity prospecting, Dr. Salamanca for his expertise in recommendations for better glycemic control. Continue on Keflex for antimicrobial coverage. AFB, Fungal, Histoplasma and TB QFT are all pending. Continue on Mycophenolate, Prednisone and Prograf medications antirejection medications given renal transplant. Continue to monitor blood pressure. Norvasc was increased to 10 milligrams daily starting today. Overall blood pressures do appear to be better controlled 140s to 150s over 60s. Will continue to follow carefully. Will recheck CBC and BMP tomorrow Discuss further plan of care and orders with attending, Dr Gray Sepsis Assessment - Evaluation Sepsis screening result: No Definite Risk Hospital Course Summary Disclaimer: The visit summary below is not to be considered part of the above Progress Note. Hospital Course: 12/20/16 - initial admission Impression Septic Shock- With Lactate of 4. Right axilla wound, failed outpatient treatment Diabetes Blindness Renal transplant Hypertension GERD Diabetic neuropathy Plan We will admit patient to outpatient observation initially, however will change to inpatient status given her criteria of septic shock. She is admitted for right axilla abscess, failed outpatient treatment. Obtain the following laboratory studies on admission. CBC, CMP, CRP, venous lactate, pro calcitonin, MRSA swab, blood cultures 2. Venous lactate results are elevated at 4.0, indicating severe sepsis. Recheck Venous Lactate at 1430 as per sepsis protocol. Clinically, she appears hemodynamically stable as she is afebrile. Vital signs are normal on admission. Will continue to monitor these carefully every hour Initiate IV Fluids 30 ml/kg bolus for total of 2400ml. Will start IV vancomycin and meropenem and for coverage of staph aureus and Pseudomonas. qSOFA score on admission is 0/3 which indicated mortality related to sepsis. Consultation placed to Dr. Roca for ongoing wound evaluation and treatment. Monitor Accu-Cheks carefully. Will need to reconcile home medications and order accordingly. It is important patient continues on her anti-rejection medications. Morphine as needed for pain control and Zofran as needed for nausea SCDs to bilateral lower extremity for DVT prophylaxis Will discuss further orders and plan of care with attending, Dr. Lucas. At time of discharge medical care will return to primary care provider, Joann Tamayo APRN at [facility] 12/21/16-Plan Continue with meropenem and vancomycin for treatment of АНДРЕЙ and Pseudomonas wound. Blood cultures remain negative at this time. Leukocytosis has improved, white count today 8.6, and lactate normalized. Appreciate Dr. Roca's recommendations, planning for surgical evaluation and exploring of chronic wound in the right axilla for today. Need to consider further vascular access as patient does have a shunt in the left arm, and right axilla is location of wound. May need to consider central line patient requires long-term IV into buttock treatment. Need to monitor blood sugars and utilize Lantus and sliding scale insulin. Testing sugar this morning was elevated at 217. Patient is currently nothing by mouth for scheduled procedure later today. Continue on prednisone and Prograf. Given history of renal transplant. Mycophenolate on hold due to acute infection. Field Collector appears to be at baseline as per Stock Buyer Dr Rasheed. Further orders and plan of care with attending, Dr. Lucas 12/23/16 14:33 She is slowly improving. Septic shock is resolved. Continue Meropenem, Vanco. Pharmacy following for Vanco adjustment. Cx. are reviewed. Wound vac right axillae. BG is trending down, continue current insulin. BP is well controlled. Continue Norvasc. Avoid excessive lowering. Continue supportive meds for renal transplant. Immunosuppressed- concern for URI. Check respiratory viral panel. Pain in right arm- IV meds ordered for pain. Will add BID low dose gabapentin. Add PRN tylenol. Recheck labs in AM for stability. 12/24/16- Plan Overall Liudmila is feeling good. Continue to monitor blood sugars, Overall well controlled on Lantus and Novolog. Monitor blood pressures. Overall have been elevated however nursing staff is taking pressures on lower extremities due to upper ext restrictions. Continue on Norvasc. Current culture revels АНДРЕЙ. Continue meropenem IV, Vanco discontinued yesterday. Consult placed to ID for later this week for treatment course guidance Prednisone and Prograf chronic antirejection meds due to renal transplant. Am labs reviewed, CRP trended down from 390 to 54. Will discuss further plan of care with attending, Dr Lucas 12/25/16- Plan Overall doing good. Wound culture is positive for АНДРЕЙ. Continue on meropenem IV. Plan to discuss with infectious disease for long-term recommendations. Clinically have wound VAC changed in the next 1-2 days Blood sugars continue to be well controlled. Novolog insulin with meals, Lantus at HS Continue on prednisone and Prograf anti-rejection medications due to renal transplant. Will contact Dr Jarvis Rasheed (Stock Buyer) today to discuss resuming mycophenolate as well as target blood pressure goals Continue to follow routine labs 12/26/16- Plan Overall blood sugars remained quite labile as patient has had some low sugars in the 50s and 60s. However, fasting sugar this morning was elevated at 324. Patient states she normally does not have any hypoglycemic episodes at home. Will place consultation to her observer gravity prospecting, Dr. Salamanca for his expertise in recommendations for better glycemic control. Continue on Keflex for antimicrobial coverage. AFB, Fungal, Histoplasma and TB QFT are all pending. Continue on Mycophenolate, Prednisone and Prograf medications antirejection medications given renal transplant. Continue to monitor blood pressure. Norvasc was increased to 10 milligrams daily starting today. Overall blood pressures do appear to be better controlled 140s to 150s over 60s. Will continue to follow carefully. Will recheck CBC and BMP tomorrow Discuss further plan of care and orders with attending, Dr Gray <Luz Marina Gray - Last Filed: 12/26/16 16:56> Objective Vital signs: Temperature 97.3 F 12/26/16 16:00 Pulse Rate 64 12/26/16 16:00 Respiratory Rate 16 12/26/16 16:00 Blood Pressure 152/68 H 12/26/16 16:00 Pulse Oximetry 95 12/26/16 16:00 Height/Weight/BMI: Height 4 ft 11 in Weight 187 lb 6.287 oz Body Mass Index 36.0 Results - Labs CBC & Chem 7: 12/25/16 03:52 12/25/16 03:52 Microbiology Results: Microbiology 12/20/16 10:31 Peripheral/Iv Start Blood Culture - Final No Growth After 5 Days 12/20/16 10:36 Peripheral/Iv Start Blood Culture - Final No Growth After 5 Days 12/21/16 13:45 Axilla,Right Gram Stain - Final 12/21/16 13:45 Axilla,Right Abscess Culture - Final Staphylococcus aureus Group G Streptococcus Assessment and Plan (1) Wound, open axilla Current visit: Yes Status: Acute (2) Failure of outpatient treatment Current visit: Yes Status: Acute (3) Severe sepsis Current visit: Yes Status: Acute (4) Renal transplant recipient 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 Conley Wili his show card letterer. He recommends continuing usual dose of Prograf and prednisone. He recommended holding mycophenolate for approximately one week due to her severe infection. This should be restarted when infection has improved. Current visit: Yes Status: Acute Assessment and Plan: I have independently evaluated and examined this patient. I reviewed the chart, the patient's history, and the SUPERVISOR PROPERTIES/PA's documented findings as above. We discussed and formulated the assessment and plan as above with additions as below. The patient was seen 1615. The patient has continued to use her morphine IV on a regular basis for discomfort in her right axillary region. She reported Tylenol did not help at all. She has been reluctant to take hydrocodone or oxycodone because they both cause severe nausea. The patient reports doing well and slept well during the night. Denies fevers, chills, sweats. Denies sore throat, shortness of breath, dyspnea on exertion, cough, sputum production, chest pain. Denies nausea, vomiting or diarrhea. Is urinating without difficulty, denies dysuria. In general, the patient is alert and oriented 3, cooperative with exam, and in no respiratory distress. HEENT: Head is atraumatic, normocephalic, no conjunctival petechiae, no oral thrush, mucous membranes are moist and pink. Lungs: Clear to auscultation without wheezes, crackles or rhonchi CV: Regular rate and rhythm without murmur Abdomen: Soft, nontender, bowel sounds are present, there is no guarding no rebound. Extremities: No clubbing, no cyanosis, no edema. Right axillary wound VAC in place Skin: Warm and dry no sign of rash Neuro: Patient is alert We'll continue treatment with cephalexin for her right axillary abscess. Appreciate Dr. Gilbert' consult. Have called the health department in [facility] to follow up on her latent tuberculosis diagnosis. The nurse will check with the [facility] to see if she received treatment at that time. Her pain management remains an issue. She is reluctant to take oral meds. She did ask me to talk to her sister Kateryna. After discussing with Kateryna we agreed to try [place] at a low dose with Zofran if needed to help manage her pain. Ideally we'll try to discharge patient in the next day or 2 if we can manage her pain. Hospital Course Summary Disclaimer: The visit summary below is not to be considered part of the above Progress Note.
--- NOTE | 2016-12-26 15:43 | Progress Note ---
DATE OF SERVICE 12/26/2016 FINDINGS Mrs. Shaikh this morning was seen earlier on rounds. She was without complaints. Still is experiencing some discomfort within her right axilla. EXAM VITAL SIGNS: Afebrile, normotensive. Please refer to EMR. CHEST: Attention was focused to the right axilla. Wound VAC is in place and functioning. No significant periwound erythema noted. ASSESSMENT 61-year-old female with multiple medical comorbidities, status post excisional surgical debridement of chronically inflamed/infected tissue from right axilla. PLAN Continuation of negative wound pressure therapy and antibiotic therapy. I appreciate hospitalist/Infectious Disease help in regards to management of this patient. Pathology did return revealing marked acute necrotizing inflammation involving the skin and soft tissues. Special stains have been performed for fundi and acid-fast bacilli. These results are still pending. Will continue to follow along in the patient's care. FRANCY
[2016-12-26] MEDS ORDERED: INSULIN ASPART 100unit/ml INJECTION SQ SCH ×2 (17:05→17:06)
[2016-12-26] MEDS: HYDROCODONE/APAP 5mg/325mg TABLET PO PRN ×2 (17:16→23:36)
[2016-12-26] MEDS: ONDANSETRON 4 MG TABLET PO PRN ×2 (17:16→23:36)
--- NOTE | 2016-12-26 20:36 | Consultation ---
DATE OF CONSULTATION 12/26/2016 DATE OF ADMISSION 12/20/2016 REASON FOR CONSULTATION Uncontrolled diabetes. HISTORY OF PRESENT ILLNESS Mrs. Shaikh is well-known to me from my clinic where she has been followed for type 2 diabetes mellitus requiring insulin for many years. In October she had a right axillary infection incised and drained. She has required several more I &D procedures due to persistent infection. She recently was placed on Bactrim for fever and vomiting [facility]. Her antibiotics were changed to Cipro and clindamycin but she was unable to keep down her oral meds or fluids so she was admitted to [facility] for further evaluation and treatment. During her hospital stay her blood sugars were initially in the 200s but by 12/22/2016 they had come into control. She even had occasional blood sugars as low as the 60s. This afternoon two hours after lunch she dropped to her lowest point of 57 and a consult was requested. During her hospital stay she has continued taking her usual insulin regimen which consists of NovoLog 10 units q.a.m., 14 units for lunch, 15 units q. p.m. and Lantus 20 units q.h.s. She was noted to have a HgA1c of 9.5% on admission. REVIEW OF SYSTEMS CONSTITUTIONAL: No longer has fever or chills. ENT: Remarkable for chronic blindness. GI: No further nausea or vomiting. INTEGUMENTARY: Remarkable for the right axillary wound which is causing just minor pain. NEUROLOGIC: Remarkable for painful peripheral neuropathy. PAST MEDICAL HISTORY Type 2 diabetes mellitus. Kidney transplant. Painful peripheral neuropathy. Blindness. Hypertension. Gastroesophageal reflux disease. History of nephrolithiasis. Anemia. Depression. Hearing loss. Osteoarthritis. PAST SURGICAL HISTORY Hysterectomy. Left arm fistula. Nephrectomy, renal transplant. Left knee surgery. S Bilateral laser surgery to eyes. FAMILY HISTORY Remarkable for diabetes, hypertension, stroke, liver cancer. SOCIAL HISTORY The patient is an ex-smoker and no longer smokes nor drinks alcohol. CURRENT MEDICATIONS Per EMR. ALLERGIES Codeine. Hydrocodone. Oxycodone. PHYSICAL EXAM VITAL SIGNS: Afebrile with stable vital signs. GENERAL: Well-developed, overweight female, alert, oriented and in no acute distress. HEENT: Blind in both eyes. Mucous membranes are moist. NECK: Without thyromegaly or lymphadenopathy. LUNGS: Clear. HEART: Regular rate and rhythm without murmur. ABDOMEN: Normal bowel sounds. Soft, nontender without masses or organomegaly. EXTREMITIES: Without edema. There is a fistula in the left arm. Skin is warm and dry with a packing in the right axillary wound. NEUROLOGIC: Cranial nerves II-XII intact. Moves all extremities. PSYCHIATRIC: Normal affect. Normal thought processes. LABORATORY Reviewed. ASSESSMENT 1. Type 2 diabetes mellitus, uncontrolled. Yesterday she was hypoglycemic after supper with a glucose of 65 and after treatment and rebound her sugar was 324 this morning. Then it fell again after lunch to 57. 2. Long-term chronic insulin treatment. 3. Obesity. 4. Axillary wound. 5. Blindness. 6. Painful peripheral neuropathy due to type 2 diabetes mellitus. RECOMMENDATIONS The patient appears to need less insulin for lunch, supper and overnight. We will reduce NovoLog to 10 units q.a.m., 12 units q. lunch, 13 units q.p.m. and Lantus 18 units q.h.s. We will follow her blood sugars and continue to titrate if necessary. Thank you very much for asking my assistance in caring for this nice lady. I will follow her along with you while she remains in the hospital. FRANCY
[2016-12-26] MEDS: PRAVASTATIN 20 MG TABLET PO SCH (20:42)
[2016-12-26] MEDS: ZOLPIDEM 10 MG TABLET PO PRN (20:46)
[2016-12-26] MEDS ORDERED: INSULIN GLARGINE 100unit/ml INJECTION SQ SCH (21:00)
[2016-12-27] MEDS: HYDROCODONE/APAP 5mg/325mg TABLET PO PRN ×4 (04:54→23:53)
[2016-12-27] MEDS: ONDANSETRON 4 MG TABLET PO PRN ×4 (04:54→23:53)
[2016-12-27] MEDS: SALINE FLUSH 10ml SYRINGE IVF PRN ×4 (04:55→23:54)
[2016-12-27] MEDS: INSULIN ASPART 100unit/ml INJECTION SQ PRN ×3 (06:07→20:15)
[2016-12-27] MEDS: OMEPRAZOLE 20 MG CAPSULE PO SCH (06:07)
[2016-12-27] MEDS: MYCOPHENOLATE SODIUM 180 MG PO SCH ×2 (06:07→20:59)
--- NOTE | 2016-12-27 08:22 | Endocrinology Progress Note ---
Progress Note-A&P (1) Diabetic peripheral neuropathy associated with type 2 diabetes mellitus Problem details: Pains are significant. Failed trial of alpha lipoic acid. Can try Lyrica. Status: Chronic Current Visit: No (2) Uncontrolled type 2 diabetes mellitus Problem details: Poor control at all times of day. Status: Chronic Assessment and plan: No further hypoglycemia after tapering insulin, but FBS is too high so an intermediate dose of Lantus must be used. Current Visit: No - Time Spent With Patient Total time spent is greater than 50% in coordination of care (as documented) at patient's floor/unit and/or counseling patient: less than 15 minutes Subjective Principal diagnosis: Type 2 diabetes mellitus, uncontrolled Interval history: No complaints, except pain in feet. Eating well. Exam Vital signs: Temperature 96.9 F 12/27/16 08:10 Pulse Rate 65 12/27/16 08:10 Respiratory Rate 16 12/27/16 08:10 Blood Pressure 153/96 H 12/27/16 08:10 Pulse Oximetry 93 12/27/16 08:10 - Constitutional no acute distress - Routine HEENT Exam Head: Present: normocephalic, atraumatic ENT: Present: mucous membranes moist - Routine Neck Exam Absent: lymphadenopathy, thyromegaly - Routine Respiratory Exam Absent: rales, wheezes - Routine Cardiovascular Exam Present: RRR - Routine Abdominal Exam Present: soft, normoactive bowel sounds, non tender - Routine Extremities Exam Absent: edema - Routine Neurological Exam Present: alert, oriented X3 - Routine Psychiatric Exam Present: normal affect, normal thought process, cooperative, good insight - Additional findings Additional findings: Laboratory Tests 12/26/16 12/27/16 19:50 05:49 Glucometer 176 236
[2016-12-27] MEDS ORDERED: INSULIN GLARGINE 100unit/ml INJECTION SQ SCH (08:26)
[2016-12-27] MEDS: TACROLIMUS 0.5 MG CAPSULE PO SCH ×2 (08:51→20:57)
[2016-12-27] MEDS: MAGNESIUM OXIDE 400 MG TABLET PO SCH ×2 (08:51→21:01)
[2016-12-27] MEDS: INSULIN ASPART 100unit/ml INJECTION SQ SCH ×3 (08:51→18:04)
[2016-12-27] MEDS: GABAPENTIN 100 MG CAPSULE PO SCH ×2 (08:52→21:00)
[2016-12-27] MEDS: AMLODIPINE 10 MG TABLET PO SCH (08:52)
[2016-12-27] MEDS: CITALOPRAM 20 MG TABLET PO SCH (08:52)
[2016-12-27] MEDS: PredniSONE 5 MG TABLET PO SCH (08:53)
[2016-12-27] MEDS: POLYETHYL GLYCOL 3350 17gm PACKET PO SCH (08:53)
[2016-12-27] MEDS: PrednisoLONE 1% EYE DROPS 5ml OP SCH ×2 (08:53→21:02)
[2016-12-27] MEDS: TACROLIMUS 1 MG CAPSULE PO SCH ×2 (09:01→20:57)
[2016-12-27] MEDS: PREGABALIN 25 MG CAPSULE PO SCH ×2 (11:08→13:00)
--- NOTE | 2016-12-27 16:26 | Progress Note ---
Subjective: The patient was seen at 1615. She is tolerating the [place] with Zofran without nausea or vomiting. Reports that it's keeping her pain under control. The patient reports doing well and slept well during the night. Denies fevers, chills, sweats. Denies sore throat, shortness of breath, dyspnea on exertion, cough, sputum production, chest pain. Denies nausea, vomiting or diarrhea, had a BM earlier today. Is urinating without difficulty, denies dysuria. Objective Vital signs: Temperature 96.2 F L 12/27/16 15:00 Pulse Rate 64 12/27/16 15:00 Respiratory Rate 18 12/27/16 15:00 Blood Pressure 139/65 12/27/16 15:00 Pulse Oximetry 97 12/27/16 15:00 Height/Weight/BMI: Height 4 ft 11 in Weight 176 lb 12.972 oz Body Mass Index 36.0 - Routine Psychiatric Exam Comments: In general, the patient is alert and oriented 3, cooperative with exam, and in no respiratory distress. HEENT: Head is atraumatic, normocephalic, no conjunctival petechiae, slight conjunctival injection, no oral thrush, mucous membranes are moist and pink. Lungs: Clear to auscultation without wheezes, crackles or rhonchi CV: Regular rate and rhythm without murmur Abdomen: Soft, nontender, bowel sounds are present, there is no guarding no rebound. Extremities: No clubbing, no cyanosis, no edema. Right axillary wound VAC in place Skin: Warm and dry no sign of rash Neuro: Patient is alert Results - Labs CBC & Chem 7: 12/27/16 04:45 12/27/16 04:45 Labs: Microbiology 12/21/16 13:45 Axilla,Right Gram Stain - Final 12/21/16 13:45 Axilla,Right Abscess Culture - Final Staphylococcus aureus Group G Streptococcus Laboratory Tests 12/25/16 12/25/16 12/26/16 20:09 21:40 06:08 Glucometer 65 122 324 12/26/16 12/26/16 12/26/16 10:11 13:56 14:16 Glucometer 159 54 57 Pathology report from the right axillary area includes a negative GMS and negative AFB stain. There was marked acute necrotizing inflammation no atypia or neoplasm identified. Microbiology Results: Microbiology 12/25/16 10:00 Tissue Fungal Culture - Preliminary 12/20/16 10:31 Peripheral/Iv Start Blood Culture - Final No Growth After 5 Days 12/20/16 10:36 Peripheral/Iv Start Blood Culture - Final No Growth After 5 Days 12/21/16 13:45 Axilla,Right Gram Stain - Final 12/21/16 13:45 Axilla,Right Abscess Culture - Final Staphylococcus aureus Group G Streptococcus Assessment and Plan (1) Wound, open axilla Current visit: Yes Status: Acute (2) Failure of outpatient treatment Current visit: Yes Status: Acute (3) Severe sepsis Current visit: Yes Status: Resolved (4) Renal transplant recipient Problem details: . Current visit: Yes Status: Acute Assessment and Plan: The patient is doing well. She is now off IV morphine. Discussed with Dr. Roca will plan on discharge tomorrow with a home wound VAC. Insulin has been adjusted, appreciate Dr. Lopez's help. Talked with the health department in [facility] today, they confirmed that in 2000 the patient had a negative PPD. Her QuantiFERON test today is indeterminate. . Sepsis Assessment - Evaluation Sepsis screening result: No Definite Risk Hospital Course Summary Disclaimer: The visit summary below is not to be considered part of the above Progress Note. Hospital Course: 12/20/16 - initial admission Impression Septic Shock- With Lactate of 4. Right axilla wound, failed outpatient treatment Diabetes Blindness Renal transplant Hypertension GERD Diabetic neuropathy Plan We will admit patient to outpatient observation initially, however will change to inpatient status given her criteria of septic shock. She is admitted for right axilla abscess, failed outpatient treatment. Obtain the following laboratory studies on admission. CBC, CMP, CRP, venous lactate, pro calcitonin, MRSA swab, blood cultures 2. Venous lactate results are elevated at 4.0, indicating severe sepsis. Recheck Venous Lactate at 1430 as per sepsis protocol. Clinically, she appears hemodynamically stable as she is afebrile. Vital signs are normal on admission. Will continue to monitor these carefully every hour Initiate IV Fluids 30 ml/kg bolus for total of 2400ml. Will start IV vancomycin and meropenem and for coverage of staph aureus and Pseudomonas. qSOFA score on admission is 0/3 which indicated mortality related to sepsis. Consultation placed to Dr. Roca for ongoing wound evaluation and treatment. Monitor Accu-Cheks carefully. Will need to reconcile home medications and order accordingly. It is important patient continues on her anti-rejection medications. Morphine as needed for pain control and Zofran as needed for nausea SCDs to bilateral lower extremity for DVT prophylaxis Will discuss further orders and plan of care with attending, Dr. Lucas. At time of discharge medical care will return to primary care provider, Joann Tamayo APRN at [facility] 12/21/16-Plan Continue with meropenem and vancomycin for treatment of АНДРЕЙ and Pseudomonas wound. Blood cultures remain negative at this time. Leukocytosis has improved, white count today 8.6, and lactate normalized. Appreciate Dr. Roca's recommendations, planning for surgical evaluation and exploring of chronic wound in the right axilla for today. Need to consider further vascular access as patient does have a shunt in the left arm, and right axilla is location of wound. May need to consider central line patient requires long-term IV into buttock treatment. Need to monitor blood sugars and utilize Lantus and sliding scale insulin. Testing sugar this morning was elevated at 217. Patient is currently nothing by mouth for scheduled procedure later today. Continue on prednisone and Prograf. Given history of renal transplant. Mycophenolate on hold due to acute infection. 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 Further orders and plan of care with attending, Dr. Lucas 12/23/16 14:33 She is slowly improving. Septic shock is resolved. Continue Meropenem, Vanco. Pharmacy following for Vanco adjustment. Cx. are reviewed. Wound vac right axillae. BG is trending down, continue current insulin. BP is well controlled. Continue Norvasc. Avoid excessive lowering. Continue supportive meds for renal transplant. Immunosuppressed- concern for URI. Check respiratory viral panel. Pain in right arm- IV meds ordered for pain. Will add BID low dose gabapentin. Add PRN tylenol. Recheck labs in AM for stability. 12/24/16- Plan Overall Liudmila is feeling good. Continue to monitor blood sugars, Overall well controlled on Lantus and Novolog. Monitor blood pressures. Overall have been elevated however nursing staff is taking pressures on lower extremities due to upper ext restrictions. Continue on Norvasc. Current culture revels АНДРЕЙ. Continue meropenem IV, Vanco discontinued yesterday. Consult placed to ID for later this week for treatment course guidance Prednisone and Prograf chronic antirejection meds due to renal transplant. Am labs reviewed, CRP trended down from 390 to 54. Will discuss further plan of care with attending, Dr Lucas 12/25/16- Plan Overall doing good. Wound culture is positive for АНДРЕЙ. Continue on meropenem IV. Plan to discuss with infectious disease for long-term recommendations. Clinically have wound VAC changed in the next 1-2 days Blood sugars continue to be well controlled. Novolog insulin with meals, Lantus at HS Continue on prednisone and Prograf anti-rejection medications due to renal transplant. Will contact Dr Jarvis Rasheed (Industrial Services Worker) today to discuss resuming mycophenolate as well as target blood pressure goals Continue to follow routine labs 12/26/16- Plan Overall blood sugars remained quite labile as patient has had some low sugars in the 50s and 60s. However, fasting sugar this morning was elevated at 324. Patient states she normally does not have any hypoglycemic episodes at home. Will place consultation to her supervisor statement clerks, Dr. Salamanca for his expertise in recommendations for better glycemic control. Continue on Keflex for antimicrobial coverage. AFB, Fungal, Histoplasma and TB QFT are all pending. Continue on Mycophenolate, Prednisone and Prograf medications antirejection medications given renal transplant. Continue to monitor blood pressure. Norvasc was increased to 10 milligrams daily starting today. Overall blood pressures do appear to be better controlled 140s to 150s over 60s. Will continue to follow carefully. Will recheck CBC and BMP tomorrow Discuss further plan of care and orders with attending, Dr Gray
[2016-12-27] MEDS: MORPHINE SULFATE 2 MG SYRINGE IVP PRN (19:25)
[2016-12-27] MEDS: ZOLPIDEM 10 MG TABLET PO PRN (20:58)
[2016-12-27] MEDS: PRAVASTATIN 20 MG TABLET PO SCH (21:00)
[2016-12-28] MEDS: ONDANSETRON 4 MG TABLET PO PRN ×3 (03:47→20:05)
[2016-12-28] MEDS: HYDROCODONE/APAP 5mg/325mg TABLET PO PRN ×3 (03:47→20:04)
[2016-12-28] MEDS: MYCOPHENOLATE SODIUM 180 MG PO SCH (06:15)
[2016-12-28] MEDS: OMEPRAZOLE 20 MG CAPSULE PO SCH (06:15)
--- NOTE | 2016-12-28 07:28 | Progress Note ---
DATE: 12/27/2016 FINDINGS Mrs. Shaikh was seen earlier today on rounds. She was without complaints. Vitals: Afebrile. Normotensive. Please refer to EMR. Chest: Attention was focused to the right axilla. Wound vac remains to be functioning and intact. Periwound skin is without significant erythema or induration. ASSESSMENT 61-year-old female with multiple medical comorbidities, status post excision of chronically inflamed/infected tissue from right axilla. Patient currently doing well. PLAN Patient is apparently going to be discharged tomorrow if her pain has been controlled with oral narcotics. Paperwork has been filled out for home wound vac. Home vac will be placed tomorrow and the patient will be, as stated above , potentially discharged. Will have home health care change vac on Saturday/ Saturday schedule. I would like to see the patient back in wound center on next Saturday following her discharge and will perform vac change and reassessment of wound at that time. FRANCY
[2016-12-28] MEDS: SALINE FLUSH 10ml SYRINGE IVF PRN (08:02)
[2016-12-28] MEDS: MORPHINE SULFATE 2 MG SYRINGE IVP PRN (08:02)
[2016-12-28] MEDS ORDERED: INSULIN ASPART 100unit/ml INJECTION SQ SCH (08:13)
--- NOTE | 2016-12-28 08:17 | Endocrinology Progress Note ---
Progress Note-A&P (1) Diabetic peripheral neuropathy associated with type 2 diabetes mellitus Problem details: Started trial of Lyrica yesterday. No effects seen yet. Status: Chronic Current Visit: No (2) Uncontrolled type 2 diabetes mellitus Problem details: Poor control at all times of day. Status: Chronic Assessment and plan: No further hypoglycemia after tapering insulin, but FBS is too high so an intermediate dose of Lantus must be used. Current Visit: No - Time Spent With Patient Total time spent is greater than 50% in coordination of care (as documented) at patient's floor/unit and/or counseling patient: less than 15 minutes Subjective Principal diagnosis: Type 2 diabetes mellitus, uncontrolled Interval history: No complaints, except pain in feet. Eating well. No hypoglycemia. Exam Vital signs: Temperature 96.7 F L 12/28/16 00:00 Pulse Rate 68 12/28/16 03:50 Respiratory Rate 16 12/28/16 03:50 Blood Pressure 179/74 H 12/28/16 03:50 Pulse Oximetry 96 12/28/16 03:50 - Constitutional no acute distress - Routine HEENT Exam Head: Present: normocephalic, atraumatic ENT: Present: mucous membranes moist - Routine Neck Exam Absent: lymphadenopathy, thyromegaly - Routine Respiratory Exam Absent: rales, rhonchi - Routine Cardiovascular Exam Present: RRR - Routine Abdominal Exam Present: soft, normoactive bowel sounds. Absent: tenderness - Routine Extremities Exam Absent: edema - Routine Skin Exam Comments: Right axillary wound is clean and healing slowly. - Routine Neurological Exam Present: alert, oriented X3 - Routine Psychiatric Exam Present: normal affect, normal thought process
--- NOTE | 2016-12-28 09:06 | Progress Note ---
Subjective Date: 12/28/16 Subjective: She reports that she is still having pain in the R axilla. Her VAC was changed this morning. Her nausea is controlled when she takes Zofran with her pain pill. She asks me about dilaudid. She denies any fevers, chills or diarrhea. Exam Vital Signs: Temperature 96.7 F L 12/28/16 00:00 Pulse Rate 68 12/28/16 03:50 Respiratory Rate 16 12/28/16 03:50 Blood Pressure 179/74 H 12/28/16 03:50 Pulse Oximetry 96 12/28/16 03:50 Height/Weight/BMI: Height 1.5 m Weight 80.2 kg Body Mass Index 36.0 - Constitutional Present: no acute distress - Routine HEENT Exam Head: Present: normocephalic, atraumatic Eye: Present: EOMI, PERRL, cataracts ENT: Present: mucous membranes moist - Routine Neck Exam Present: supple - Routine Respiratory Exam Present: CTA bilaterally - Routine Cardiovascular Exam Present: RRR. Absent: murmur - Routine Abdominal Exam Present: soft, normoactive bowel sounds, non distended, non tender - Routine Extremities Exam Absent: cyanosis, clubbing, edema - Routine Skin Exam Present: wounds (R axilla with VAC in). Absent: rash - Routine Neurological Exam Present: alert, oriented X3, CN II-XII intact. Absent: motor deficit - Routine Psychiatric Exam Present: normal affect, cooperative Results - Labs CBC & Chem 7: 12/27/16 04:45 12/27/16 04:45 Labs: Laboratory Tests 12/25/16 11:21 TB Test (QFT) Indeterminate Microbiology Results: Microbiology 12/25/16 10:00 Tissue Fungal Culture - Preliminary 12/20/16 10:31 Peripheral/Iv Start Blood Culture - Final No Growth After 5 Days 12/20/16 10:36 Peripheral/Iv Start Blood Culture - Final No Growth After 5 Days 12/21/16 13:45 Axilla,Right Gram Stain - Final 12/21/16 13:45 Axilla,Right Abscess Culture - Final Staphylococcus aureus Group G Streptococcus Impression: Severe sepsis, presumed source R axillary abscess R axillary abscess vs hydradenitis suppurativa, s/p I&D/excision 12/21, cultures with АНДРЕЙ and Group G Strep S/p renal transplant 2014 H/o prior positive PPDs, without treatment (per patient) Blindness DM II, IR Indeterminate TB interferon Recommendation: Recommend continuing the cephalexin 500mg po QID for at least 2 weeks. Wound VAC per Dr. Roca. Stains for fungal and AFB were negative. Histo antigen is pending. The patient gives me a history of what sounds like latent TB although she doesn't think it was treated. This might need to be clarified by checking with the Health Department. I will check a TSPOT since her TB interferon is indeterminate. She can be discharged from my standpoint and I'll follow up with her in the wound clinic. Sepsis Assessment - Evaluation Sepsis screening result: No Definite Risk
[2016-12-28] MEDS: GABAPENTIN 100 MG CAPSULE PO SCH (09:37)
[2016-12-28] MEDS: TACROLIMUS 1 MG CAPSULE PO SCH (09:37)
[2016-12-28] MEDS: TACROLIMUS 0.5 MG CAPSULE PO SCH (09:37)
[2016-12-28] MEDS: PREGABALIN 25 MG CAPSULE PO SCH (09:38)
[2016-12-28] MEDS: CITALOPRAM 20 MG TABLET PO SCH (09:38)
[2016-12-28] MEDS: AMLODIPINE 10 MG TABLET PO SCH (09:38)
[2016-12-28] MEDS: MAGNESIUM OXIDE 400 MG TABLET PO SCH (09:39)
[2016-12-28] MEDS: PredniSONE 5 MG TABLET PO SCH (09:40)
[2016-12-28] MEDS: INSULIN ASPART 100unit/ml INJECTION SQ SCH ×2 (09:42→13:29)
[2016-12-28] MEDS: PrednisoLONE 1% EYE DROPS 5ml OP SCH (09:44)
[2016-12-28] MEDS: POLYETHYL GLYCOL 3350 17gm PACKET PO SCH (09:45)
--- NOTE | 2016-12-28 10:49 | Wound Care Progress Note ---
Wound Management - Wound Right Chest Wound Present on Admission?: Yes Length: 9.8 Width: 2 Depth: 3.2 Wound Bed Appearance: Beefy Red [place] Wound Appearance: [place], Purple, Well Defined Tunneling: No Undermining: No Drainage Description: Serosanguineous Drainage Amount: Moderate Drainage Odor: No Odor Dressing Status: Changed Number of Packing Pieces Removed?: 2 Number of Packing Pieces Placed?: 1 Primary Dressing: Foam Dressing Secondary Dressing: Trac Pad Dressing Change Date: 12/28/16 Dressing Change Time: 08:00 Dressing Change Patient Tolerance: Tolerated Well (Wound vac changed today from an Instill to a vac only. Pt will be going home on a home wound vac today. Pt will return to the wound clinic on Saturday. Pt tolerated well.) Microbiology: Microbiology 12/25/16 10:00 Tissue Fungal Culture - Preliminary
[2016-12-28] MEDS: INSULIN ASPART 100unit/ml INJECTION SQ PRN (11:05)
--- NOTE | 2016-12-28 12:49 | Progress Note ---
DATE 12/28/2016 FINDINGS The patient without complaints today. She states that she has still been having some breakthrough pain despite the oral narcotics but it does "dull the pain". OBJECTIVE VITALS: Afebrile. Normotensive. Please refer to EMR. CHEST/RIGHT AXILLA: Attention was focused to the area of concern. Wound VAC is in place and functioning. There is no significant erythema or induration of the skin beneath the wound VAC. ASSESSMENT 61-year-old female with multiple medical comorbidities, status post excisional surgical treatment of chronically infected/inflamed tissue from right axilla. Patient currently doing well. PLAN The patient could be discharged to home with a home wound VAC from a surgical standpoint. I have placed an order in the computer for the patient to follow up on Saturday in our wound center. Appointment time will need to be made. Will remove VAC and readdress wound at that time. I have been pleased with the patient's progress. FRANCY
--- NOTE | 2016-12-28 14:26 | Discharge Instructions ---
Discharge Plan - Med Rec/Dispo Referrals/Follow Up: Joann Amaya, ZAIDA [Family Provider] - 1 Month Rk Salamanca MD [Physician] - 1 Month (Keep previous appointment ) Leonidas Rasheed MD [Physician] - 2 Weeks [place] Instructions: Sepsis (GEN) Additional Instructions: Appointment WITH WOUND CARE ON 01/01 AT 8:[address] Britt Gilbert will see in wound care Prescriptions: New CephALEXin [Keflex] 500 mg PO QID 11 Days #44 cap Hydrocodone/APAP 5/325 [[place] 5/325] 1 - 2 tab PO Q4H PRN #30 tab PRN Reason: Pain PredniSONE [Deltasone] 5 mg PO WB tablet Zolpidem [Ambien] 5 mg PO HS PRN #10 tab PRN Reason: Insomnia Insulin Aspart [NovoLOG] 14 unit SQ WS #0 vial Insulin Aspart [NovoLOG] 10 unit SQ WB #0 vial Magnesium Oxide [Magox] 200 mg PO BID tablet Amlodipine [Norvasc] 10 mg PO DAILY #30 tab Ondansetron Tab [Zofran Po] 4 mg PO Q4H PRN #30 tab PRN Reason: nausea with pain meds Pregabalin Cap [Lyrica] 25 mg PO DAILY #30 cap Insulin Aspart [NovoLOG] 12 unit SQ WL #0 vial Insulin Glargine,Hum.rec.anlog [Lantus] 19 unit SQ HS vial Continue Tacrolimus [Prograf] 1 mg PO BID #0 Omeprazole Magnesium [Prilosec Otc] 20 mg PO DAILY #0 Tacrolimus [Prograf] 0.5 mg PO BID #0 Citalopram [Celexa] 20 mg PO DAILY Pravastatin [Pravachol] 20 mg PO HS prednisoLONE acetate [Omnipred] 1 drop OP BID #0 Cholecalciferol (Vitamin D3) [Vitamin D3] 1 tab PO DAILY Mycophenolate Sodium [Myfortic] 360 mg PO BID OneTouch Verio strips See Dose Instructions .ROUTE .MEDSUPPLY #2 package NS Discontinued Magnesium 250 mg PO BID #0 predniSONE [Prednisone] 5 mg PO DAILY #0 Amlodipine Besylate 5 mg PO DAILY #0 Insulin Aspart [Novolog Flexpen] 14 unit SQ WL Insulin Aspart [Novolog Flexpen] 10 unit SQ WB Insulin Glargine [Lantus] 20 unit SQ HS Promethazine HCl 12.5 mg PO DAILY #0 Insulin Aspart [Novolog Flexpen] 15 unit SQ WS Zolpidem Tartrate [Ambien] 10 mg PO HS PRN PRN Reason: Sleep Discharge Instructions/Outpatient Orders: Final Provider Discharge Instructions Location: Determined By Patient - Disposition 01 Discharged Home, Self-Care
[2016-12-28 15:30] VITALS: TEMP 97.1
--- NOTE | 2016-12-28 20:40 | Discharge Summary ---
Discharge Information Date of admission: 12/20/16 11:19 Anticipated date of discharge: 12/28/16 Attending Physician: Luz Marina Gray MD Primary care physician: [facility] Joann Amaya APRN Consults: 12/20/16 10:50 Physician Consult [CONS] Routine Consulting Provider: Toby Ojeda Reason For Exam: Right axilla wound Ordering Provider has Notified [employer] Supervisor: Yes 12/21/16 16:20 Wound Vein Clinic Consult [CONS] Routine Reason for consultation: instill wound vac right axilla 12/26/16 09:02 Physician Consult [CONS] Routine Consulting Provider: Britt Gilbert Reason For Exam: axillary abscess Ordering Provider has Notified [employer] Supervisor: Yes 12/26/16 15:15 Physician Consult [CONS] Routine Consulting Provider: Rk Salamanca Reason For Exam: glycemia management Ordering Provider has Notified [employer] Supervisor: No Comment: please contact - Laboratory Labs: 12/27/16 04:45 12/27/16 04:45 - Microbiology Microbiology 12/25/16 10:00 Tissue Acid Fast Bacilli Culture & Smear - Preliminary 12/25/16 10:00 Tissue Fungal Culture - Preliminary 12/20/16 10:31 Peripheral/Iv Start Blood Culture - Final No Growth After 5 Days 12/20/16 10:36 Peripheral/Iv Start Blood Culture - Final No Growth After 5 Days 12/21/16 13:45 Axilla,Right Gram Stain - Final 12/21/16 13:45 Axilla,Right Abscess Culture - Final Staphylococcus aureus Group G Streptococcus History of Present Illness HPI: Liudmila is a pleasant 61 year old female who has been under the care of Dr KATIE Laboy at [facility] since beginning of October for a right axilla wound. He has been intermittently I/D with packing due to persistent infections since that time. She had recently been on PO Bactrim however was seen yesterday for fever and vomiting and received IV fluids, Zofran and antibiotics were changed to Cipro and clindamycin. Since then she is unable to keep PO meds and fluids down. Given these systemic symptoms and worsening nausea/vomiting the Hospitalists team was contacted and accepted as a direct admission for further acute evaluation and treatment. On arrival to [facility] [place] she is afebrile at 98.1, Pulse 75, BP 109/56. She is alert and orientated and complains of persistent nausea accommodated with significant right axilla pain. Wound is currently packed on arrival with rubber band present. Wound culture reviewed from 11/27/16 that was positive for Staphylococcus aureus (Oxacillin sensitive) and Pseudomonas Aeruginosa, which is pansensitive. Objective Vital signs: Temperature 97.1 F 12/28/16 15:29 Pulse Rate 59 L 12/28/16 15:29 Respiratory Rate 16 12/28/16 15:29 Blood Pressure 141/66 H 12/28/16 15:29 Pulse Oximetry 95 12/28/16 15:29 Height/Weight/BMI: Height 4 ft 11 in Weight 175 lb 4.28 oz Body Mass Index 36.0 - Additional findings Additional findings: In general, the patient is alert and oriented 3, cooperative with exam, and in no respiratory distress. HEENT: Head is atraumatic, normocephalic, no conjunctival petechiae, no oral thrush, mucous membranes are moist and pink. Lungs: Clear to auscultation without wheezes, crackles or rhonchi CV: Regular rate and rhythm without murmur Abdomen: Soft, obese, nontender, bowel sounds are present, there is no guarding no rebound. Extremities: No clubbing, no cyanosis, no edema. Right axillary wound VAC in place Skin: Warm and dry no sign of rash Neuro: Patient is alert Midline right upper arm Hospital Course This is a general summary of the patient's hospital course. For more details refer to the complete medical record. Hospital course: The patient is a renal transplant patient who developed a right axillary abscess in September. It been managed as an outpatient by a local surgeon who had packed with rubber bands. The patient was subsequently admitted to the hospital on December 20 with septic shock after failing outpatient therapy. She was initially started on IV fluids, IV vancomycin and meropenem for coverage for staph aureus and Pseudomonas. Patient's immunosuppression for her transplant was adjusted in conjunction with Dr. Leonidas Rasheed who is her tube station attendant. On December 21 the patient underwent a right axillary wound debridement with placement of awound VAC. Cultures obtained at the time of surgery showed a Gram stain a few gram-positive cocci in clusters with neutrophils seen. The culture grew a methicillin susceptible staph aureus moderate growth as well as a group G Streptococcus. Unfortunately, cultures for AFB and fungus were not obtained at the time of surgery. A GMS and AFB stain were done on the pathology specimens which were both negative. A urine Histoplasma antigen was negative. Her serum QuantiFERON was indeterminant, Dr. Gilbert has ordered T-spot which is pending. The patient was maintained on wound VAC and is actually being discharged home with a wound VAC to follow up with wound care and Dr. Ojeda. Her IV antibiotics were discontinued she was switched over to cephalexin 500 mg by mouth 4 times a day on December 25 for a [address] Kathy Gilbert will be managing that and following up with her in wound care. Dr. Salamanca, her regular mold maker apprentice, was consulted because of problems with her blood sugars adjustments were made in her care was discussed with him on the day of discharge. He had also started her on Lyrica as gabapentin was not helping with her neuropathy and she'll be discharged on that as well. She is back on her antirejection meds, she was maintained on Prednisone and Prograf during the hospitalization, ( her mycophenolate sodium 360 mg twice a day was resumed on December 25) and will follow-up with Dr. Leonidas Rasheed as an outpatient. In addition her blood pressures remained elevated (BP were taken from her legs)and she was increased amlodipine 10 mg by mouth daily in conjunction with Dr. Rasheed's advice. Patient did have issues with pain medications was on IV morphine because of perceived intolerances causes by hydrocodone and oxycodone including immediate nausea and vomiting. After conferencing with the patient and with her sister was agreed to try her on hydrocodone/APAP 5 mg 1-2 every 4 hours with Zofran for possible nausea. Initially she was on 1 tablet every 4 hours which did not resolve her pain, on the day of discharge it was increased to 2 tabs every 4 hours which she tolerated without nausea and vomiting while taking Zofran. She was discharged home with her pain well controlled. Consultation placed to Dr. Ojeda for ongoing wound evaluation and treatment. Time spent with patient: discharge greater than 30 minutes Discharge Plan - Med Rec/Dispo Referrals/Follow Up: Joann Amaya, ZAIDA [Family Provider] - 1 Month Rk Salamanca MD [Physician] - 1 Month (Keep previous appointment ) Leonidas Rasheed MD [Physician] - 2 Weeks Truven Instructions: Sepsis (GEN) Additional Instructions: Appointment WITH WOUND CARE ON 01/01 AT 8:[address] Britt Gilbert will see in wound care Prescriptions: New CephALEXin [Keflex] 500 mg PO QID 11 Days #44 cap Hydrocodone/APAP 5/325 [Presto 5/325] 1 - 2 tab PO Q4H PRN #30 tab PRN Reason: Pain PredniSONE [Deltasone] 5 mg PO WB tablet Zolpidem [Ambien] 5 mg PO HS PRN #10 tab PRN Reason: Insomnia Insulin Aspart [NovoLOG] 14 unit SQ WS #0 vial Insulin Aspart [NovoLOG] 10 unit SQ WB #0 vial Magnesium Oxide [Magox] 200 mg PO BID tablet Amlodipine [Norvasc] 10 mg PO DAILY #30 tab Ondansetron Tab [Zofran Po] 4 mg PO Q4H PRN #30 tab PRN Reason: nausea with pain meds Pregabalin Cap [Lyrica] 25 mg PO DAILY #30 cap Insulin Aspart [NovoLOG] 12 unit SQ WL #0 vial Insulin Glargine,Hum.rec.anlog [Lantus] 19 unit SQ HS vial Continue Tacrolimus [Prograf] 1 mg PO BID #0 Omeprazole Magnesium [Prilosec Otc] 20 mg PO DAILY #0 Tacrolimus [Prograf] 0.5 mg PO BID #0 Citalopram [Celexa] 20 mg PO DAILY Pravastatin [Pravachol] 20 mg PO HS prednisoLONE acetate [Omnipred] 1 drop OP BID #0 Cholecalciferol (Vitamin D3) [Vitamin D3] 1 tab PO DAILY Mycophenolate Sodium [Myfortic] 360 mg PO BID OneTouch Verio strips See Dose Instructions .ROUTE .MEDSUPPLY #2 package NS Discontinued Magnesium 250 mg PO BID #0 predniSONE [Prednisone] 5 mg PO DAILY #0 Amlodipine Besylate 5 mg PO DAILY #0 Insulin Aspart [Novolog Flexpen] 14 unit SQ WL Insulin Aspart [Novolog Flexpen] 10 unit SQ WB Insulin Glargine [Lantus] 20 unit SQ HS Promethazine HCl 12.5 mg PO DAILY #0 Insulin Aspart [Novolog Flexpen] 15 unit SQ WS Zolpidem Tartrate [Ambien] 10 mg PO HS PRN PRN Reason: Sleep Discharge Instructions/Outpatient Orders: Final Provider Discharge Instructions Location: Determined By Patient - Disposition 01 Discharged Home, Self-Care
[2016-12-28 20:47] VITALS: BP 143/67; PULSE 61; RESP 18; O2SAT 91
== END 2016-12-28 21:21 | disposition home or self-care (01) | DRG 853 ==
LOC: MED
PROVIDERS: ADMIT Internal Medicine; ATTEND Internal Medicine Infectious Disease